=== PATIENT | female | born 1960 | race Caucasian/White ===

== ENCOUNTER 2025-02-07 04:36 | Inpatient (IN) | payer OTHER, SELFPAY ==
[2025-01-31 12:31] VITALS: BMI 33.6
[2025-01-31 12:49] LABS: Urine Albumin 1+ (Neg - Trace); Urine Bilirubin Negative (Negative); Urine Character Clear (Clear); Urine Color Yellow; Urine Glucose Negative (Negative); Urine Ketone Negative (Negative); Urine Leukocyte 3+ (Negative); Urine Nitrite Negative (Negative); Urine Occult Blood Negative (Negative); Urine Urobilinogen Negative (Neg - 1+)
[2025-01-31 12:51] LABS: % Basophils 0.6 % (0-2); % Eosinophils 4.4 % (0-6); % Immature Granulocytes 0.2 % (0-0.5); % Lymphocytes 14.1 % (20.5-51.1); % Monocytes 6.9 % (1.7-9.3); % Neutrophils 73.8 % (42.2-75.2); Absolute Basophils 0.1 10^3/uL (0-0.2); Absolute Eosinophils 0.4 10^3/uL (0-0.7); Absolute Lymphocytes 1.3 10^3/uL (1.2-3.4); Absolute Monocytes 0.6 10^3/uL (0.1-0.6); Absolute Neutrophils 6.6 10^3/uL (1.4-6.5); Hematocrit 36.9 % (37.0-47.0); Mean Corp Hgb Conc. 32.5 g/dL (33.0-37.0); Mean Corpuscular Hgb 29.5 pg (27.0-31.0); Mean Corpuscular Volume 90.7 fL (81.0-99.0); Mean Platelet Volume 9.4 fL (7.4-10.4); Nucleated Red Blood Cells % 0 %; Platelet Count 320 10^3/uL (130-400); Red Blood Cell Count 4.07 10^6/uL (4.20-5.40); Red Cell Dist. Width 13.3 % (11.5-14.5)
[2025-01-31 13:03] LABS: INR 0.94
[2025-01-31 13:04] LABS: APTT 31.9 Sec (23.4-35.0)
[2025-01-31 13:07] LABS: Glycohemoglobin (HgbA1c) 6.7 % (4.0-5.6)
[2025-01-31 13:25] LABS: ALT (SGPT) 17 U/L (0-35); AST (SGOT) 21 U/L (14-36); Albumin 4.5 g/dl (3.5-5.0); Alkaline Phosphatase 44 U/L (38-126); Blood Urea Nitrogen 27 mg/dl (7-17); Calcium 9.8 mg/dl (8.4-10.2); Carbon Dioxide 25 mmol/L (22-30); Chloride 103 mmol/L (98-107); Direct Bilirubin 0.2 mg/dl (0.0-0.4); Estimated Creatinine Clearance 41 ml/min; Glucose 79 mg/dl (70-99); Potassium 5.5 mmol/L (3.5-5.1); Sodium 137 mmol/L (135-145); Total Bilirubin 0.6 mg/dl (0.2-1.3); Total Protein 6.9 g/dl (6.3-8.2); eGFR 55.42
--- NOTE | 2025-01-31 14:09 | CM ---
Met with Mrs Vu and her friend Holly in [facility]. She states prior to admission she resides with her spouse and son in a one story home with four steps to enter. She states prior to admission she was independent with ambulation and adls. She
states she has a single point cane at home She states she has a prescription plan and uses [facility]. If the Transitional Care Nurse is out of the catchment area she is agreeable to having [facility] if needed. She states her son and
spouse will be home for the first week to assist in her care if needed. The discharge plan is to return home with her spouse and son with a home visit by the Transitional Care Nurse [facility] if [facility].
We reviewed pre-op and post-op routines. We reviewed the shower instructions. She has the soap, written instructions and the Cardiothoracic Surgery Educational Booklet. We also reviewed the restrictions including sternal precautions and driving
restrictions. We discussed a home visit by the Transitional Care Nurse. She is agreeable to home visit. The plan is for MVR and CABG on January.
[2025-01-31 14:40] LABS: Urine Squamous Cell >30 /LPF (Few)
[2025-01-31 14:41] LABS: Urine Amorphous Seen
[2025-01-31 14:42] LABS: Urine Red Blood Cell 0-2 /HPF (0-2)
[2025-01-31 14:43] LABS: Urine White Cell 50-60 /HPF (0-5)
[2025-01-31 14:44] LABS: Urine Bacteria Few (Negative)
[2025-02-07] VITALS (21 sets, daily range): BP systolic 81–123; BP diastolic 51–67; BMI 33.1
--- NOTE | 2025-02-07 05:30 | PTCARENOTE ---
Patient arrived to CVICU, clipped in a surgical fashion, wiped with CHG, confirmed NPO And two showers. During medication review, could not confirm last known day Plavix was taken; CVPA aware, TEG test collected and given to glass finisher prior to
patient being taken to CVOR.
[2025-02-07] MEDS: BACTROBAN 2% OINTMENT 1 APPLIC NASAL ×2 (07:05→21:29)
[2025-02-07] MEDS: MAGNESIUM OXIDE 500 MG PO (07:05)
[2025-02-07] MEDS: PROTONIX 40 MG PO (07:06)
--- NOTE | 2025-02-07 07:07 | W.PN.UPDATE ---
Update Note
Progress Note Update
preop BB contraindicated due to bradycardia
--- NOTE | 2025-02-07 07:32 | W.CVOR.SURPR ---
CVOR Surgeon Immed Pre Op
-
I have examined this patient prior to performance of the scheduled procedure.
The patient's condition is unchanged from the time of the dictated/written History and
Physical and the patient is able to undergo the scheduled procedure.
High Risk MVR + CABG x 2 + LIZBETH Clip
[2025-02-07 08:19] LABS: ACT+ - POC 101 Seconds (82-134)
[2025-02-07 08:26] LABS: Urine Albumin Negative (Neg - Trace); Urine Bilirubin Negative (Negative); Urine Character Clear (Clear); Urine Color Yellow; Urine Glucose Negative (Negative); Urine Ketone Negative (Negative); Urine Leukocyte Negative (Negative); Urine Nitrite Negative (Negative); Urine Occult Blood Negative (Negative); Urine Urobilinogen Negative (Neg - 1+); Urine pH 6.5 (5.0-9.0)
[2025-02-07 09:30] LABS: ACT+ - POC 584 Seconds (82-134)
[2025-02-07 09:45] LABS: B.E. - POC 0.5 mmol/L; Glucose - POC 97 mg/dl (70-99); HCO3 - POC 25 mmol/L (21-28); Hematocrit - POC 31 % PCV (37-47); Hemodilution- POC No; Hemoglobin Calculated - POC 10.6; Ionized Calcium - POC 1.16 mmol/L (1.15-1.33); Lactate - POC 2.33 mmol/L (0.36-0.75); O2 Saturation %Calculated-POC 99.4 % (94-98); PCO2 - POC 40 mmHg (35-48); PO2 - POC 161 mmHg (83-108); Potassium - POC 4.2 mmol/L (3.5-5.1); Sodium - POC 139 mmol/L (136-145); Specimen Type - POC Arterial; pH - POC 7.41 (7.35-7.45)
[2025-02-07 09:59] LABS: ACT+ - POC 665 Seconds (82-134)
[2025-02-07 10:15] LABS: B.E. - POC -0.8 mmol/L; Glucose - POC 95 mg/dl (70-99); HCO3 - POC 25 mmol/L (21-28); Hematocrit - POC 25 % PCV (37-47); Hemodilution- POC Yes; Hemoglobin Calculated - POC 8.6; Ionized Calcium - POC 0.95 mmol/L (1.15-1.33); Lactate - POC 3.45 mmol/L (0.36-0.75); O2 Saturation %Calculated-POC 99.9 % (94-98); PCO2 - POC 44 mmHg (35-48); PO2 - POC 376 mmHg (83-108); Potassium - POC 5.1 mmol/L (3.5-5.1); Sodium - POC 138 mmol/L (136-145); Specimen Type - POC Arterial; pH - POC 7.36 (7.35-7.45)
[2025-02-07 10:29] LABS: ACT+ - POC 590 Seconds (82-134)
[2025-02-07 10:46] LABS: B.E. - POC 0.7 mmol/L; Glucose - POC 120 mg/dl (70-99); HCO3 - POC 27 mmol/L (21-28); Hematocrit - POC 27 % PCV (37-47); Hemodilution- POC Yes; Ionized Calcium - POC 1.06 mmol/L (1.15-1.33); Lactate - POC 3.89 mmol/L (0.36-0.75); O2 Saturation %Calculated-POC 99.9 % (94-98); PCO2 - POC 51 mmHg (35-48); PO2 - POC 368 mmHg (83-108); Potassium - POC 5.1 mmol/L (3.5-5.1); Sodium - POC 140 mmol/L (136-145); Specimen Type - POC Arterial; pH - POC 7.33 (7.35-7.45)
[2025-02-07 10:56] LABS: ACT+ - POC 514 Seconds (82-134)
[2025-02-07 11:16] LABS: B.E. - POC 0.8 mmol/L; Glucose - POC 127 mg/dl (70-99); HCO3 - POC 27 mmol/L (21-28); Hematocrit - POC 26 % PCV (37-47); Hemodilution- POC Yes; Hemoglobin Calculated - POC 8.7; Ionized Calcium - POC 1.01 mmol/L (1.15-1.33); Lactate - POC 4.03 mmol/L (0.36-0.75); O2 Saturation %Calculated-POC 99.9 % (94-98); PCO2 - POC 48 mmHg (35-48); PO2 - POC 304 mmHg (83-108); Potassium - POC 5.3 mmol/L (3.5-5.1); Sodium - POC 142 mmol/L (136-145); Specimen Type - POC Arterial; pH - POC 7.35 (7.35-7.45)
[2025-02-07 11:27] LABS: ACT+ - POC 459 Seconds (82-134)
--- NOTE | 2025-02-07 11:28 | CM ---
Chart reviewed. Patient is in the OR today. Patient is independent of ADLS, lives with her and son in a 1 STH, 4 [address], ambulates with a SPC. Patient lives outside of [facility]. Referral sent to [facility]. Plan is for the
patient to return home with Emil GLASG[facility]. CM to follow
[2025-02-07 11:46] LABS: B.E. - POC 0.7 mmol/L; Glucose - POC 129 mg/dl (70-99); HCO3 - POC 27 mmol/L (21-28); Hematocrit - POC 26 % PCV (37-47); Hemodilution- POC Yes; Hemoglobin Calculated - POC 8.7; Ionized Calcium - POC 1.06 mmol/L (1.15-1.33); PCO2 - POC 51 mmHg (35-48); PO2 - POC 417 mmHg (83-108); Potassium - POC 5.1 mmol/L (3.5-5.1); Sodium - POC 141 mmol/L (136-145); Specimen Type - POC Arterial; pH - POC 7.33 (7.35-7.45)
[2025-02-07 11:57] LABS: ACT+ - POC 539 Seconds (82-134)
[2025-02-07 12:51] LABS: B.E. - POC 0.5 mmol/L; Glucose - POC 131 mg/dl (70-99); HCO3 - POC 26 mmol/L (21-28); Hematocrit - POC 25 % PCV (37-47); Hemodilution- POC Yes; Hemoglobin Calculated - POC 8.6; Ionized Calcium - POC 0.98 mmol/L (1.15-1.33); Lactate - POC 4.09 mmol/L (0.36-0.75); PCO2 - POC 48 mmHg (35-48); PO2 - POC 415 mmHg (83-108); Potassium - POC 5.6 mmol/L (3.5-5.1); Sodium - POC 141 mmol/L (136-145); Specimen Type - POC Arterial; pH - POC 7.35 (7.35-7.45)
[2025-02-07 12:58] LABS: ACT+ - POC 131 Seconds (82-134)
[2025-02-07 13:12] LABS: ACT+ - POC 120 Seconds (82-134)
--- NOTE | 2025-02-07 13:17 | W.PN.CT.SURG ---
CT Surgery Operative Note
-
CARDIAC SURGERY OPERATIVE REPORT
Preoperative Diagnosis: Severe mitral valve annular calcification with severe mitral valve stenosis, multivessel coronary artery disease, symptomatic
Postoperative Diagnosis: Same, new onset atrial fibrillation with hemodynamic instability
Procedure(s) Performed:
1. Standard sternotomy with aortic and bicaval cannulation
2. Coronary artery bypass grafting x 1 [BAKER in situ to LAD] with internal mammary artery harvesting
3. Extensive debridement of mitral annular calcification using the CUSA ultarsonic debridement device and requiring bovine pericardial patch reinforcement/repair of the fragile annulus
4. Chordal sparing mitral valve replacement [27 mm bioprosthesis]
5. Modified left atrial maze [encompass clamp, posterior wall isolation] and left atrial appendage exclusion [35 mm device]
6. Placement of temporary atrial and ventricular pacing wires
7. Transesophageal echocardiography
8. Exploration of lower extremity for vein, none was found
Date of Surgery: 02/07/2025
Comorbidities:
1. Severe mitral valve annular calcification
2. Severe mitral valve stenosis with mean gradient of 8 while under anesthesia
3. New onset atrial fibrillation with hemodynamic instability
4. Diabetes mellitus
5. Hypothyroidism
6. Hyperlipidemia
7. Diabetic peripheral neuropathy
8. Obese with a BMI of greater than 30
9. Severe pulmonary hypertension with systolic PA pressures in the high 60s to low 70s
10. Chronic diastolic congestive heart failure
Attending Surgeon: Long Hernández MD, MS
Assistants: Kassi Mayen PA-C (present and necessary to nutrition assistant, retraction, suction, exposure, suture management, and wound closure under my direction), Melissa Covarrubias PA-C (attempted endo vein harvest)
Anesthesiology: Maurisio Diaz MD and Sandy Walsh CRNA
Scrub and Circulating RNs: Catherine Morales, CHARITO, Jordon Cerrato, CHARITO and Adrian Gomes RN
Rand Cementer: Alisa Marmolejo CCP
Anesthesia: GETA
EBL: per perfusion records
Products: None
CPB Time: 177 minutes
Aortic Cross Clamp Time: 154 minutes
Indication(s) for Procedures: This is a 64-year-old female who has been experiencing worsening shortness of breath over the last few months, she underwent left heart cath with valve concomitant multivessel coronary artery disease involving the LAD
and RCA. She also had elevated pulmonary wedge pressures and LVEDP on examination. Her transthoracic echocardiogram demonstrated severe thickening of the mitral valve with heavy calcification. She had a mean gradient of 8 mmHg while awake. There
was reduced leaflet excursion of the valve and obvious evidence of mitral valve stenosis along with severe mitral valve annular calcification. Given her symptoms, she was offered high risk mitral valve replacement as well as CABG and left atrial
appendage exclusion.
Mitral Valve Description: Heavily calcified anterior and posterior leaflets, terrible MAC that started at the P2 P1 interface and extended all the way towards the posterior medial trigone with infiltration onto the posterior and anterior leaflets of
the mitral valve particularly towards the posterior medial side.
Findings: Her left ventricular ejection fraction preoperatively was normal at 60% with no significant regional wall motion abnormalities, her left atrium was quite large and thickened, her mitral valve was heavily calcified with reduced leaflet
excursion and a mean gradient 8 mmHg while under anesthesia. Of note after opening the chest and performed the pericardiotomy, she had new onset atrial fibrillation and did have hypotension requiring vasoactive support. After surgery her EF
remained the same at 60% with no new regional wall motion abnormalities. Her mitral valve was heavily calcified with extensive calcification of the posterior annulus. Her cords to the posterior medial papillary muscle head was resected as was
heavily calcified. Half of the anterior leaflet towards the A2 A3 side was also resected as it was infiltrated with calcium. In order to place good annular sutures, a ultrasonic device for debridement was used in order to break up the calcium in
the posterior annulus until there was muscle exposed. Bovine pericardial patch was used to repair the segment overall pericardium essentially reinforcing the entire P3 onto A1 side. Sutures were placed from ventricle through the patch through
annulus through patch and finally through the sewing cuff of the 27 mm bioprosthesis. After coming off cardiopulmonary bypass there was no paravalvular leak and had normal excursion of the new bioprosthetic leaflets. The mean gradient across the
valve was 4 while she was hyperdynamic with a index of greater than 3. Because she had new onset atrial fibrillation and modified posterior wall isolation was performed with the using the RF clamp in the left atrial appendage was also excluded.
She did not require any blood products, she was on 2.5 Dobutrex, and regained her sinus rhythm with a first-degree AV block.
Ablation Lines: Posterior wall isolation with left atrial appendage exclusion
Specimen(s): Mitral valve leaflets.
Prosthesis:
1. 35mm left atrial appendage clip, serial #[id number]
2. Bovine pericardial patch, serial number [id number]
3. 27 mm Mcmahan mitris Resilia mitral valve, serial #[id number].
Description of Procedure: The patient was taken to the operating room. Their identity and procedure to be performed were verified and they were positioned supine on the operating table. Induction via general anesthesia with endotracheal intubation
was performed and central venous access and arterial monitoring were inserted. A preoperative transesophageal echocardiogram was performed to assess cardiac function and valvular function. The patient was then prepped and draped from chin to feet in
a sterile fashion. A preoperative time-out was performed with all members of the team present. A midline chest incision was performed along with median sternotomy. A median sternotomy retractor was then exchanged for Rultract retractor.
Simultaneous access in order to attempt identifying a lower extremity vein was also performed. 5000 heparin was also given at this time. The mammary was taken down in the usual fashion as a skeletonized graft. There is excellent flow of the
distal and the mammary after transection it was then clipped with a medium clipped and placed into a papaverine soaked Ray-Manolo sponge and placed back into the left hemithorax. There will check was then exchanged for median sternotomy retractor and
the pericardium was opened and a pericardial well was created. The innominate vein was isolated. Full heparinization was given (a total of 40,000 units). Of note at this time the patient went into rapid atrial fibrillation with hypotension
requiring vasoactive medication. The aortic cannulation site was chosen where it was soft, pliable, and free of calcium. Cannulation was performed with an arterial cannula in the ascending aorta, angled metal tip cannular in the superior vena cava
and straight bendable cannula in the inferior vena cava. The arterial cannula line had an appropriate bounce and correlating pressures. Next, a root vent/antegrade cannula was inserted into the ascending aorta. The ACT was confirmed to be over 400
and retrograde autologous priming was performed before commencing cardiopulmonary bypass. The SVC was then away from the right pulmonary artery and the oblique sinus was developed. The encompass RF ablation clamp was passed through the
transverse and oblique sinuses underneath the SVC and IVC respectively and 3 successful pairs of ablation were performed. The pulmonary artery was away from the aorta to facilitate a clamp site. Sondergaard�s groove was developed. The
aortic cross-clamp was placed after decreasing the flow on the bypass and mean arterial pressure. A total of 1.2L initial dose of antegrade Del-Nido cardioplegia solution was given and planned for re-dosing every 75 minutes as necessary. There was
rapid electro-mechanical arrest of the heart at 300 cc of cardioplegia. The left ventricle was observed for distention on echocardiogram and manual palpation. Cold slush was placed into a lap on the RV and we systemically cooled to 34 degrees
centigrade. Once the heart was fully arrested he was gently rotated medially and the left atrial appendage was excluded with a clip.
I then positioned the heart in order to expose the LAD which was dissected using a [place] blade and a small coronary arteriotomy was created. The mammary artery was brought in from the left hemithorax and an end-to-side anastomosis was created.
Initially not satisfied with how the anastomosis appeared and so this was taken down and we done with 7-0 Prolene in a running fashion. There was excellent visual flow in the LAD territory thereafter with pinking up of the myocardium. The bulldog
was then replaced on the mammary artery. Additional cardioplegia was then given down the root.
Carbon dioxide was used to flood the field. The mitral valve was access via the left atrium followed by valve analysis. The mitral valve was replaced as described above. The left ventricular vent was repositioned across the mitral valve into the
left ventricular and the left atrium was closed with a 3-0 prolene. As I required extensive debridement there was calcium debris which was irrigated out of the left ventricle and suctioned out as best I could. I then reposition in order to perform
a small aortotomy in order to ensure that there was no debris within the aortic root or down towards the LVOT. This was closed in a standard fashion using 4-0 Prolene in a double suture line.
De-airing maneuvers were performed and temporary bipolar ventricular pacing wires were placed on the base of the right ventricle along with temporary atrial pacing wires at the SVC right atrial junction. The patient was placed in a Trendelenburg
position and flows on bypass were lowered. The aortic cross clamp was removed and flows were slowly brought back up. The left atrial suture line was hemostatic. Transesophageal echocardiography revealed no evidence of paravalvular leak and
ventricular function was normal. Once de-airing was satisfactory the left ventricular and root vents were removed. After verifying acceptable parameters, we initiated weaning from cardiopulmonary bypass. Once we were off cardiopulmonary bypass, the
venous cannulas was clamped and removed sequentially. A test dose of protamine was administered and the patient was monitored for any adverse reaction before resuming protamine. Once half of the protamine dose was delivered, pump suckers were turned
off and the systolic blood pressure was lowered for aortic decannulation. The aortic cannula was removed and purse strings were tied down. All cannulation sites were oversewn with a 4-0 prolene. The left atrial suture line was inspected and
hemostasis was confirmed. Mediastinal hemostasis was obtained. Two #24 Bennie drains were placed within the pericardium with a single #19 Bennie drain into the left hemithorax. The sternum was approximated with 4 #7 single and 2 #8 double stainless
steel wires along with a [id number]-ch-trpne suture in between as her sternum was fractured and the double wire did pull through here. Fascia was approximated with #1 vicryl suture. The subcutaneous, dermis and epidermis were closed in layers in a
running fashion. The skin wound was cleansed and dressed.
All instrument, sponge, and needle counts were confirmed to be correct x 2 at the end of the operation. The patient was transferred to the cardiac intensive care unit in critical but stable condition.
I, Dr. Long Hernández, was present, scrubbed for, and performed all critical elements of this procedure.
Long Hernández MD, MS
Cardiothoracic Surgeon
[facility]
This dictation was created using the [employer] dictation system. Please excuse any grammatical, typographical, or 'sound alike' errors
[2025-02-07] MEDS: NOVOLOG FLEXPEN SC ×2 (13:29→14:36)
[2025-02-07] MEDS: TYLENOL PO (13:29)
--- NOTE | 2025-02-07 13:40 | CON.INTV ---
Consultation
Consultation Request
Date/Time Consultation Requested: 02/07/2025 - 1312
Date/Time Consultation Performed: 02/07/2025 - 1
Requesting Provider: Alma Kearns NP
Performing Provider: Dr. Paz
Reason for Consultation: s/p MVR and CABG x1
Medical History
-
Chief Complaint: Elective mitral valve replacement + CABG
History of Present Illness:
64-year-old female non-smoker with a past medical history of DM type II, hypothyroidism, hyperlipidemia, depression, obesity, hypertension, history of asthma, mild regurgitation, mitral stenosis, CAD, pulmonary hypertension, and chronic HFpEF who
presents for elective CABG + mitral valve replacement. Patient follows with cardiothoracic surgery with last visit on 01/24/[address] Hernández. Patient has known mitral valve stenosis via echo at [facility] patient been describing more fatigue + SOB with
activities. She has had a left heart cath in December 2024 which showed multiple tandem lesions in the LAD as well as moderate disease of her mid-RCA disease as well. She had an increased wedge pressure + LVEDP. She now presents for cardiothoracic
intervention. Today she underwent CABG x 1 with extensive debridement of mitral annular calcification, chordal sparing mitral valve replacement, and modified left atrial MAZE. Patient tolerated the procedure well with no complications and was
transferred to the CVICU postoperatively. [employer] services consulted for additional management/recommendations.
When I saw the patient she was resting in bed in no acute distress, intubated on SIMV at 14/450/40%/5 with PIP 26 cmH2O, VTe 438 cc and breathing at 18 breaths/minute. Heart rate 72, BP via A-line 96/55, PAP 43/20, saturating 95% with CO/CI
3.06/1.91, respectively. Currently on dobutamine at 2.5 mcg/kg/min, Levophed at 2 mcg/min, also on insulin drip at 3 units/hr and Precedex at 0.5 mcg/kg/hr.
PMHx: DM type II, hypothyroidism, hyperlipidemia, depression, obesity, hypertension, history of asthma, mild regurgitation, mitral stenosis, CAD, pulmonary hypertension, chronic HFpEF
PSHx: Cholecystectomy, partial thyroidectomy, right toe amputation
Past Medical History
Past Medical History: Other (Above as per HPI)
Past Surgical History: Other (Above as per HPI)
Social History
Tobacco: Non-smoker
Alcohol: Occasional
Drug: None
Personal:
Living: With Family
Employment: Retired ([employer])
Family History
Family History: CAD (Mother), Diabetes (Mother), Hypertension (Lumbar) and Other (Father: Cirrhosis)
Allergies / Home Medications
Allergies
Allergy/AdvReac Type Severity Reaction Status Date / Time
No Known Allergies Allergy Verified 01/29/25 13:55
Home Medications
�Medication �Instructions �Recorded �Confirmed �Last Taken �Type
albuterol sulfate 90 mcg/actuation 1 - 2 puff inhalation Q6H PRN 01/29/25 02/07/25 02/06/25 12:00 History
aerosol inhaler asthma
aspirin 81 mg tablet,delayed 81 mg PO DAILY Blood Clot 01/29/25 02/07/25 02/06/25 08:00 History
release Prevention/Tx
atorvastatin 40 mg tablet 40 mg PO HS High Cholesterol 01/29/25 02/07/25 02/06/25 08:00 History
bupropion HCl 150 mg 24 hr tablet, 150 mg PO HS Mental Health/Anxiety 01/29/25 02/07/25 02/06/25 08:00 History
extended release
cholecalciferol (vitamin D3) 125 125 mcg PO DAILY Supplement 01/29/25 02/07/25 01/31/25 08:00 History
mcg (5,000 unit) tablet (Vitamin
D3)
citalopram 40 mg tablet (Celexa) 40 mg PO DAILY Mental 01/29/25 02/07/25 02/06/25 08:00 History
Health/Anxiety
clopidogrel 75 mg tablet 75 mg PO DAILY Blood Clot 01/29/25 02/07/25 Unknown History
Prevention/Tx
dulaglutide 0.75 mg/0.5 mL 0.75 mg SC QWEEK Diabetes 01/29/25 02/07/25 02/04/25 08:00 History
subcutaneous pen injector
(Trulicity)
ferrous sulfate 325 mg (65 mg 325 mg PO Q48H Supplement 01/29/25 02/07/25 01/31/25 08:00 History
iron) tablet (Iron (ferrous
sulfate))
fluticasone fur. 100 mcg-umeclid 1 inh inhalation DAILY 01/29/25 02/07/25 02/06/25 08:00 History
62.5 mcg-vilant 25 mcg Lung/Breathing Issues
inhalat.powder (Trelegy Ellipta)
furosemide 40 mg tablet 40 mg PO DAILY Fluid 01/29/25 02/07/25 02/05/25 08:00 History
Retention/Swelling
gabapentin 100 mg capsule 100 mg PO DAILY Pain 01/29/25 02/07/25 02/06/25 08:00 History
insulin glargine 100 unit/mL (3 20 unit SC HS Diabetes 01/29/25 02/07/25 02/06/25 21:00 History
mL) subcutaneous pen (Basaglar
KwikPen U-100 Insulin)
levothyroxine 88 mcg tablet 88 mcg PO DAILY Thyroid 01/29/25 02/07/25 02/07/25 04:00 History
lisinopril 5 mg tablet 5 mg PO HS Blood Pressure 01/29/25 02/07/25 02/06/25 20:00 History
mecobalamin (vitamin B12) 1,000 3,000 mcg PO DAILY Supplement 01/29/25 02/07/25 01/31/25 08:00 History
mcg chewable tablet
metformin 500 mg tablet,extended 1,000 mg PO BID Diabetes 01/29/25 02/07/25 02/06/25 20:00 History
release 24hr (osmotic)
metoprolol succinate 25 mg 25 mg PO HS Blood Pressure 01/29/25 02/07/25 02/05/25 20:00 History
tablet,extended release 24 hr
multivit,Ca,xqu-daml-XI-guarana-caff 1 tab PO DAILY Supplement 01/29/25 02/07/25 01/31/25 08:00 History
9 mg iron-400 mcg-200 mg tablet
([employer])
Review of Systems
-
Unable to Obtain full review of systems at this time due to: Patient Intubation
Vitals / Labs / Diagnostic Testing
Vital Signs
Temp Pulse Resp BP Pulse Ox
97.5 F 54 16 107/51 98
02/07/25 04:47 02/07/25 04:47 02/07/25 04:47 02/07/25 04:47 02/07/25 04:47
Diagnostic Testing:
Physical Exam
-
HEENT: Normocephalic, Anicteric and Other (ETT in place)
Cardiovascular: S1/S2 and Peripheral Edema (negative)
Respiratory: Wheeze (negative), Rales (negative), Rhonchi (negative) and Other (Mechanical breath sounds heard bilaterally)
GI: Soft, Non Distended, Non Tender and Normal Bowel Sounds
Neurology: Tremors (negative) and Other (Sedated although easily arousable to voice + tactile stimulation)
Skin: Warm and Dry
General: Respiratory Distress (negative), Comfortable, Chills (negative) and Sweats (negative)
Assessment
-
Assessment: 64-year-old female non-smoker with a past medical history of DM type II, hypothyroidism, hyperlipidemia, depression, obesity, hypertension, history of asthma, mild regurgitation, mitral stenosis, CAD, pulmonary hypertension, and chronic
HFpEF who presents for elective CABG + mitral valve replacement. Patient follows with cardiothoracic surgery with last visit on 01/24/[address] Hernández. Patient has known mitral valve stenosis via echo at [facility] patient been describing more fatigue +
SOB with activities. She has had a left heart cath in December 2024 which showed multiple tandem lesions in the LAD as well as moderate disease of her mid-RCA disease as well. She had an increased wedge pressure + LVEDP. She now presents for
cardiothoracic intervention. On 02/07/2025, she underwent CABG x 1 with extensive debridement of mitral annular calcification, chordal sparing mitral valve replacement, and modified left atrial MAZE. Patient tolerated the procedure well with no
complications and was transferred to the CVICU postoperatively. [employer] services consulted for additional management/recommendations.
Chronic conditions STAFF HOME THERAPY RN: DM type II, hypothyroidism, hyperlipidemia, depression, obesity, hypertension, history of asthma, mild regurgitation, mitral stenosis, CAD, pulmonary hypertension, chronic HFpEF
Impression:
#Severe mitral valve annular calcification with severe mitral valve stenosis s/p extensive debridement of MAC requiring bovine pericardial patch reinforcement/repair of the fragile annulus + chordal sparing mitral valve replacement with 27 mm
bioprosthesis (POD #0)
#Intraoperative atrial fibrillation with hemodynamic instability s/p modified left atrial MAZE + left atrial appendage exclusion with 35 mm device (POD #0)
#Multivessel CAD s/p CABG x 1 (BAKER in situ to LAD - POD #0)
#Acute anemia due to above
#DM type II complicated by peripheral neuropathy
#Severe pulmonary hypertension
#Chronic diastolic heart failure
#Hypothyroidism
#Hyperlipidemia
Plan:
Ventilator settings reviewed
FiO2 will be weaned to maintain SpO2 >90-94%
Minute ventilation will be adjusted
Arterial blood gases will be monitored
Spontaneous breathing trial will be attempted with hopeful extubation after anesthesia/sedation wear off
prn nebulized bronchodilators - not currently bronchospastic
Pulmonary artery catheter parameters will be followed
Pressors/antihypertensive/inotropes/diuretics will be provided as needed
Maintain MAP>65
Replete electrolytes with K>4, Mg>2
Monitor chest tube output
Monitor hemoglobin
Monitor platelet count and coags
Transfuse blood products as needed to maintain Hb>7g/dL, plt>50k (given post-operative status)
CT surgery managing chest tubes
Monitor blood sugar to maintain euglycemia with goal BG 110-140
Insulin drip per protocol
Continue DAPT with ASA + Plavix
Continue PO amiodarone
Aspiration precautions
VAP prevention protocol
DVT prophylaxis
Early nutrition
Early mobilization
Critical care statement: A total of 46 minutes of critical care time was provided for this patient today. This includes management of ventilator, spontaneous breathing trial, arterial blood gases, pressors, of unstable vital signs, evaluation of the
patient at bedside, reviewing the patient's pertinent medical records including radiographs, microbiology, laboratory evaluations, and discussion with primary team and critical care nursing.
[2025-02-07 13:45] LABS: B.E. - POC -2.2 mmol/L; Glucose - POC 137 mg/dl (70-99); HCO3 - POC 23 mmol/L (21-28); Hematocrit - POC 26 % PCV (37-47); Hemodilution- POC Yes; Hemoglobin Calculated - POC 8.7; Ionized Calcium - POC 1.25 mmol/L (1.15-1.33); Lactate - POC 4.29 mmol/L (0.36-0.75); O2 Saturation %Calculated-POC 99.9 % (94-98); PCO2 - POC 38 mmHg (35-48); PO2 - POC 279 mmHg (83-108); Potassium - POC 4.6 mmol/L (3.5-5.1); Sodium - POC 141 mmol/L (136-145); Specimen Type - POC Arterial; pH - POC 7.38 (7.35-7.45)
[2025-02-07 14:07] LABS: Glucose - Point of Care 144 mg/dl (70-99)
--- NOTE | 2025-02-07 14:19 | W.PN.UPDATE ---
Update Note
Progress Note Update
IV fluids: 3900 mL
U.O.:� 2100 mL
UF:� 1600 mL
Blood:� 0
Wires:� A & V
Gtt's:� Dobutrex (2.5), Levophed (2.5), Insulin (1)�
Sedatives:� Precedex (0.5)
�
NEURO: sedated on Precedex, pupils +2mm B/L
RESP: #7 OT 20 cm> 450/40%/14/5. Lungs clear B/L. 2 mediastinal (0cc on arrival) and L pleural (0cc on arrival) chest tubes to -20cm suction. Sanguineous drainage
CV: RRR +S1, S2, no S3, no�rub, no murmur. Dermabond to median sternotomy. RIJ w/Elco locked @ 39cm. PA 48/23; CVP 6; C.O 3.06/CI 1.91
ABD: round, soft, no BS
EXT: no edema, +2/4 DP pulses B/L, no femoral bruit, L brachial A-line intact, R & L inferior knee incision CDI with dermabond
: Salazar with clear, pink-tinged urine
�
A/P: POD #0 s/p MVR, CAB x 1 (BAKER-LAD), LIZBETH clip, and MAZE
ETHAN: EF�60-65%
#CAD #pHTN #HFpEF #HTN
- wean and extubate
- reintroduce home medication as able post-operatively
- will need instruction regarding antibiotic prophylaxis for dental and invasive procedures
�
# acute surgical blood loss anemia-expected
- trend CBC
#Asthma
- PRN albuterol
- Trelegy Ellipta as outpatient
- substitute regiment ordered
# T2DM (A1C 6.7)
- insulin infusion x 48h
- Diabetic MANAGER STRATEGY & ACCOUNT consulted
- Previously on Metformin, Basaglar, & Trulicity
�
# Hyperlipidemia
- resume�statin
#Anxiety/Depression
- Resume home regiment of bupropion & citalopram
#Hypothyroidism
-Resume levothyroxine
[2025-02-07 14:21] LABS: Hematocrit 28.5 % (37.0-47.0); Hemoglobin 9.5 g/dL (12.0-16.0); Platelet Count 216 10^3/uL (130-400)
[2025-02-07] MEDS: ANCEF 10 IV ×2 (14:26)
[2025-02-07] MEDS: NSS 500 IV (14:26)
[2025-02-07 14:27] LABS: B.E. -1.3 mmol/L; HCO3 23.7 mmol/L (21-28); Ionized Calcium 1.18 mMOL/L (1.15-1.33); O2 Saturation % 97.1 % (94-98); PCO2 40 mmHg (32-35); PO2 76 mmHg (83-108); Potassium 4.5 mMOL/L (3.5-5.1); Sodium 137 mMOL/L (136-145); pH 7.38 (7.35-7.45)
[2025-02-07 14:29] LABS: INR 1.55; PT 19.1 Sec (11.4-14.6)
[2025-02-07 14:30] LABS: APTT 36.6 Sec (23.4-35.0)
--- NOTE | 2025-02-07 14:30 | PTCARENOTE ---
pt received from [facility] @~1400, sedated on Precedex gtt, RASS -5. core temp 96.9, bear hugger applied as ordered. 100% Apaced on the monitor, HR 72. A&V wires in place, AAI 72/16. SBP goal 90-[address] Hernández. Levophed gtt titrated as ordered. PAP
40-50s/20s, CVP~6-8. CI 1.9, CARGO AGENT Alma aware. Dobutamine gtt running as ordered. pt mechanically ventilated, ETT #7.0, 20cm@lip. SIMV 14, TV 450, PEEP 5, FIO2 40%. POX 94-98%. pt abdomen s/n, hypoactive BS. acevedo in place, punch colored urine, CARGO AGENT
aware. sternal incision approximated, surgical adhesive present, ISAIAH. R Leg and L leg incisions ISAIAH, approximated, surgical adhesive present. chest tube dressing intact. RIJ cordis/swan maintained. L brachial Georgette flushed, zeroed, and calibrated.
PIV. insulin gtt running as ordered. labs drawn, CXR completed. see worklist for VS, I&O, and assessment.
[2025-02-07 14:31] LABS: Mixed Venous O2 Saturation 60.3 %
[2025-02-07] MEDS: LR 250 ML IV ×5 (14:33→22:59)
[2025-02-07] MEDS: NEURONTIN PO (14:35)
[2025-02-07] MEDS: PACERONE PO ×3 (14:35→23:02)
[2025-02-07 14:59] LABS: Glucose - Point of Care 128 mg/dl (70-99)
--- NOTE | 2025-02-07 15:28 | W.PN.CD ---
Today's Communication / Plan
-
Routine post operative management.
Titrate pressors/inotropes for MAP > 65, CI > 1.8 L/min/m2.
Favor dobutamine as an inotropic agent given borderline blood pressures.
Wean vent to extubate.
Pain/chest tube management per CTS.
Monitor anemia.
Impression / Plan
-
Impression/Plan: 64 y/o female with HLD, asthma, NIDDM with peripheral neuropathy, CAD and severe MS with severe pulmonary hypertension admitted for elective MVR and 1V CABG.
#Severe, calcific mitral stenosis
-Chronic, progressive.
-TTE gradient = 8 mmHg, ETHAN gradient 5 mmHg (under sedation).
-Now s/p chordal sparing SMVR (#27 Mcmahan Mitris Reslia, SN: [id number]) with mitral annulus pericardial patch (SN: [id number]) and LAAE (#35 [place], SN: [id number]) with Dr. Hernández, 02/07/2025.
-Anticipate routine post operative management.
-Wean inotropes/pressors for a MAP > 65 and a CI > 1.8 L/min/m2. Favor dobutamine due to borderline blood pressures.
-Wean vent to extubate.
-Pain/chest tube management per CT surgery.
#CAD
-Chronic, progressive.
-Cath films reviewed.
-S/P BAKER to LAD.
-Moderate RCA disease, easily treated with PCI if deemed clinically necessary.
-Post operative management as above.
-DAPT per protocol, aspirin ad infinitum.
-High dose, high potency statin.
#HLD
-Chronic, stable.
-Continue atorvastatin 40 mg daily when taking PO.
-Goal LDL < 55.
#NIDDM
-Chronic, controlled.
-HbA1c = 6.7%.
-Insulin gtt per protocol.
Critical Care Time = 38 minutes.
Subjective/Interval History:
POD #0 for MVR/CABG x1.
DATA:
MVR/CABG, 02/07/2025:
Procedure(s) Performed:
1. Standard sternotomy with aortic and bicaval cannulation.
2. Coronary artery bypass grafting x 1 [BAKER in situ to LAD] with internal mammary artery harvesting.
3. Extensive debridement of mitral annular calcification using the CUSA ultrasonic debridement device and requiring bovine pericardial patch reinforcement/repair of the fragile annulus.
4. Chordal sparing mitral valve replacement [27 mm bioprosthesis].
5. Modified left atrial maze [encompass clamp, posterior wall isolation] and left atrial appendage exclusion [35 mm device].
6. Placement of temporary atrial and ventricular pacing wires.
7. Transesophageal echocardiography.
8. Exploration of lower extremity for vein, none was found.
Intraoperative ETHAN, 02/07/2025:
CONCLUSIONS
Moderate mitral stenosis, mild mitral regurgitation, severe MAC, severe
leaflets calcifications. Annulus measures 27 x 28 mm.
Normal left ventricular size and systolic function.
Mild left atrial enlargement.
Normal right ventricular size and function.
The ascending aorta has atheroma less than 5 mm and mild calcifications.
POST OPERATIVE FINDINGS
Status post mitral valve replacement with 27 mm Mi mitral valve, status post
debridement mitral annulus, the valve is well-seated, no perivalvular leak,
leaflets are functioning well. No intra valvular regurgitation, mean gradient
is 4 mmHg.
Status post CABG x 1, the left ventricle is vigorously inder, EF 60 to
65%, no regional wall motion abnormalities seen.
Status post left atrial appendage exclusion, the clip is well-seated, no flow
seen through the left atrial appendage remnant.
Normal right ventricular size and function.
Mild tricuspid regurgitation. No aortic valve abnormalities.
Physical Exam
Vital Signs/Labs
Vital Signs
Temp Pulse Resp BP Pulse Ox
36.2 C 72 14 102/66 98
02/07/25 15:00 02/07/25 14:55 02/07/25 15:00 02/07/25 14:46 02/07/25 15:00
02/06/25 02/07/25 02/08/25
11:59 11:59 11:59
Actual Weight 69.4 kg
PT 19.1 Sec (11.4-14.6) H 02/07/25 14:02
INR 1.55 02/07/25 14:02
APTT 36.6 Sec (23.4-35.0) H 02/07/25 14:02
Physical Exam
Constitutional: No acute distress and Comfortable
EENT: Anicteric, Moist mucous membranes and Other (ET tube in place.)
Cardiovascular: Rhythm & rate is regular
Respiratory: Respiratory effort normal, Lungs clear to auscul., Wheeze Absent, Crackles Absent and Rhonchi Absent
GI: Soft, Distention absent, Flat, Non tender and Normal bowel sounds
Neuro/Psych: Other (Intubated/sedated.)
Data Reviewed
-
Date of Service: February 07, 2025
Medical Decision Making: Reviewed Test Results, Test Interpretation and Review of Case with other Provider
EKG: Tracing Personally Visualized and interpreted and Report Reviewed by me
Echo: Tracing Personally Visualized and interpreted and Report Reviewed by me
X-Ray/CT/US/MRI/NUC/PET: Image Personally Visualized and interpreted and Report Reviewed by me
Medical Tests (PFT, Pathology etc): Image Personally Visualized and interpreted and Report Reviewed by me
Labs: Labs Reviewed by me
Old Records: Reviewed
[2025-02-07 15:32] LABS: Blood Urea Nitrogen 23 mg/dl (7-17); Estimated Creatinine Clearance 44 ml/min; Glucose 128 mg/dl (70-99); Magnesium 2.3 mg/dl (1.6-2.3)
[2025-02-07] MEDS: OFIRMEV 100 IV (15:36)
--- NOTE | 2025-02-07 15:38 | RESPNOTE ---
attempted cpap trial. patient RR @ 20- acceptable, but tidal volumes < 100mL. cpap trial stopped after 3 minutes and placed back on SIMV settings. will attempt again shortly.
--- NOTE | 2025-02-07 15:38 | PTCARENOTE ---
SHALE PLANER OPERATOR aware of lab results and hemodynamics. 250ml LR given x2 as ordered. pt nods appropriately, LEZAMA. follows commands. attempted CPAP trial, failed d/t low volumes, will reattempt when appropriate. Ofirmev given as ordered for pain.
[2025-02-07 16:06] LABS: Glucose - Point of Care 119 mg/dl (70-99)
[2025-02-07] MEDS: VENTOLIN NEBULES 2.5 MG INH (16:43)
--- NOTE | 2025-02-07 16:55 | PTCARENOTE ---
pt washed w/ CHG wipes, gown and linens changed. turned and repositioned, no dumping from CTs. face washed. oral hygiene performed. pt more alert, placed on CPAP trial @1642 by RT Eden.
[2025-02-07 17:02] LABS: Glucose - Point of Care 116 mg/dl (70-99)
[2025-02-07 17:23] LABS: B.E. - POC -1.9 mmol/L; Blood Urea Nitrogen - POC 21 mg/dl (3-120); Chloride - POC 109 mmol/L (96-111); Creatinine - POC 1.13 mg/dl (0.3-1.0); Glucose - POC 104 mg/dl (70-99); HCO3 - POC 23 mmol/L (21-28); Hematocrit - POC 24 % PCV (37-47); Hemodilution- POC No; Hemoglobin Calculated - POC 8.1; Ionized Calcium - POC 1.15 mmol/L (1.15-1.33); Lactate - POC 2.94 mmol/L (0.36-0.75); O2 Saturation %Calculated-POC 99.5 % (94-98); PCO2 - POC 39 mmHg (35-48); PO2 - POC 171 mmHg (83-108); Potassium - POC 4.2 mmol/L (3.5-5.1); Sodium - POC 141 mmol/L (136-145); Specimen Type - POC Arterial; pH - POC 7.38 (7.35-7.45)
--- NOTE | 2025-02-07 17:32 | RESPNOTE ---
pt extubated at 1725 to 6lpm nasal cannula
[2025-02-07] MEDS: CALCIUM GLUCONATE 100 IV (17:34)
[2025-02-07 17:35] LABS: Hematocrit 25.5 % (37.0-47.0); Hemoglobin 8.6 g/dL (12.0-16.0); Platelet Count 232 10^3/uL (130-400)
--- NOTE | 2025-02-07 17:36 | PTCARENOTE ---
EPOC done at bedside by OBSTETRIC ASSISTANT. pt extubated @1725 to 6LNC, 100% POX. IS encouraged. oriented x4. H&H sent. calcium repleted. called and updated.
[2025-02-07 18:09] LABS: Glucose - Point of Care 126 mg/dl (70-99)
[2025-02-07] MEDS: DILAUDID 0.25 MG IV ×2 (19:22→22:38)
[2025-02-07] MEDS: LOW STRENGTH ASPIRIN 81 MG PO (19:23)
[2025-02-07] MEDS: ANCEF 5 IV (19:26)
[2025-02-07] MEDS: ZOFRAN 4 MG IV (19:35)
--- NOTE | 2025-02-07 20:00 | PTCARENOTE ---
Addendum entered by Ally Auguste RN 02/07/25 23:28:
1999: Eliseo Cheek at bedside adjusted pacer to current setting 74/16. notified him of labile BP's
Original Note:
1999- Patient recieved from RN @1900. Patient lying in bed w/ call vogel in reach. Patient states pain is 7/10. Diludid given per order. AOx4. A- Paced 74/16 -NSR HR 74. SBP goal 90-110 on levo, and dubutimine titrations. Heart sounds
audible. Radial present and pedal pulses weak on palipation bilaterally. No edema noted Lungs clear but diminished bilaterally. IS 1500. POX 99% [address] x3, L pleural and 2x mediastinal set to -20 wall suction draining serosanguious fluid.
No crepitus, tidaling, or airleaks noted. Bowel sounds hypoactive. Sternal dressing dry and intact. Bilateral knee incisions approximated and PAVING RAMMER. RIJ cordis w/ hannah All lines levled and zeroed. patent and intact. Right PIV intact 20 A/C has
Insulin infusing per protocal. Salazar putting putting out yellow urine, See Worklist for full assessment and details.
[2025-02-07 20:16] LABS: Glucose - Point of Care 106 mg/dl (70-99)
[2025-02-07] MEDS: SENOKOT-S 1 TABLET PO (21:30)
[2025-02-07 21:58] LABS: Glucose - Point of Care 113 mg/dl (70-99)
[2025-02-07] MEDS: NEURONTIN 100 MG PO (22:30)
[2025-02-07] MEDS: LIPITOR 80 MG PO (22:34)
[2025-02-07] MEDS: FLEXERIL 5 MG PO (22:36)
[2025-02-07] MEDS: TYLENOL 1000 MG PO (22:36)
--- NOTE | 2025-02-07 23:29 | PTCARENOTE ---
2330- Patient BP remains labile, drops when patient is awaked and raises again within 5 minutes without intervention, Eliseo Cheek ordered LR 250 bolus, Levo remains @ 3. Patient repositioned tolerated well. Vital sign remain stable. pain
controlled wiwth medication and positioning.
[2025-02-08] VITALS (57 sets, daily range): BP systolic 89–140; BP diastolic 38–126; BMI 34.2
[2025-02-08 00:15] LABS: Glucose - Point of Care 103 mg/dl (70-99)
[2025-02-08 02:07] LABS: Glucose - Point of Care 119 mg/dl (70-99)
[2025-02-08 02:38] LABS: Ionized Calcium 1.17 mMOL/L (1.15-1.33)
--- NOTE | 2025-02-08 02:40 | W.PN.CT ---
Today's Communication / Plan
-
- CI >2.0, BP 100's/50's, CVP 8-10 on Dobutamine and Levophed, wean as tolerated. Discontinue swan once off Dobutamine
- A-paced at 74, had brief period of sinus rhythm when pacer paused but reverted to junctional rhythm
-Hgb 7.5 this morning, consider transfusion as still requiring Levophed for BP support.
-CT output: Meds 75/245, Pl 160/245 for 12/24hrs.
-UO 485/1055 for 12/24hrs, BUN/Cr
-continue insulin drip
Assessment / Plan
-
s/p MVR(27mm Mitris), CABGx1(BAKER to LAD), GUSTAVO CASIANO POD#1
-CAD
-HTN
-HLD
-HFpEF
-asthma
-T2DM
-hypothyroid
-anxiety/depression
-acute blood loss anemia
Subjective
Procedure
02/07/25 s/p MVR(27mm Mitris), CABGx1(BAKER to LAD), GUSTAVO CASIANO by Dr. Hernández
-
Date of Service: February 08, 2025
Objective Data
-
Lab Results
02/08/25 02:26
02/08/25 02:26
PT 19.1 Sec (11.4-14.6) H 02/07/25 14:02
INR 1.55 02/07/25 14:02
APTT 36.6 Sec (23.4-35.0) H 02/07/25 14:02
Vital Signs
Vital Signs
Temp Pulse Resp BP Pulse Ox
99 F 74 17 98/88 97
02/08/25 04:00 02/08/25 04:45 02/08/25 04:45 02/08/25 04:30 02/08/25 04:45
SaO2: 100
Physical Exam
-
General: AOx3
Cardiovascular: Regular rate & rhythm (paced, sinus/junctional underneath)
Respiratory: Decreased Breath Sounds
Sternum: Stable
Incision: Clean, Dry and Intact
Extremities: No Edema
[2025-02-08 02:45] LABS: Hematocrit 22.4 % (37.0-47.0); Hemoglobin 7.5 g/dL (12.0-16.0); Mean Corp Hgb Conc. 33.5 g/dL (33.0-37.0); Mean Corpuscular Hgb 30.5 pg (27.0-31.0); Mean Corpuscular Volume 91.1 fL (81.0-99.0); Mean Platelet Volume 9.5 fL (7.4-10.4); Platelet Count 185 10^3/uL (130-400); Red Blood Cell Count 2.46 10^6/uL (4.20-5.40); Red Cell Dist. Width 13.8 % (11.5-14.5); White Blood Cell Count 12.4 10^3/uL (4.8-10.8)
[2025-02-08] MEDS: CALCIUM GLUCONATE 100 IV (03:07)
[2025-02-08 03:09] LABS: Blood Urea Nitrogen 23 mg/dl (7-17); Calcium 8.7 mg/dl (8.4-10.2); Carbon Dioxide 26 mmol/L (22-30); Chloride 109 mmol/L (98-107); Estimated Creatinine Clearance 40 ml/min; Glucose 111 mg/dl (70-99); Magnesium 1.9 mg/dl (1.6-2.3); Potassium 4.6 mmol/L (3.5-5.1); Sodium 140 mmol/L (135-145); eGFR 55.42
[2025-02-08] MEDS: ROXICODONE 2.5 MG PO ×4 (03:45→17:57)
[2025-02-08 03:46] LABS: Hepatitis C Antibody Negative (Negative)
[2025-02-08] MEDS: ANCEF 5 IV ×2 (03:55→11:58)
[2025-02-08] MEDS: MAGNESIUM SULFATE 50 IV (04:17)
[2025-02-08 04:18] LABS: Glucose - Point of Care 91 mg/dl (70-99)
[2025-02-08] MEDS: ZOFRAN 4 MG IV ×2 (04:26→21:46)
[2025-02-08] MEDS: LEVOPHED 250 IV (04:38)
[2025-02-08] MEDS: TYLENOL 1000 MG PO ×3 (05:19→21:28)
[2025-02-08] MEDS: SYNTHROID 88 MCG PO (05:19)
[2025-02-08] MEDS: DILAUDID 0.25 MG IV (06:29)
--- NOTE | 2025-02-08 06:31 | PTCARENOTE ---
0600 Patient A x O, On 2 L NC, A Paced 100%, BP remains labile on Levo and Dubutimine titrations, HGB 7.5 on am Labs, I Unit PRBC ordered and transfusing. Contuines Insulin for gylecemic protocol.
--- NOTE | 2025-02-08 07:35 | W.PN.ANS.POP ---
Anesthesia Post Operative
- Anesthesia Post Op Note
Vital Signs Stable-See Nursing Note: Yes
Airway Patent: Yes
Adequate Pain Control: Yes
Change in Mental Status: No
Current Postoperative Nausea & Vomiting: No
Anesthesia Complications: No
General Anesthetic Recall: No
Unplanned Admission: No
Post Op Hydration Adequate: Yes
--- NOTE | 2025-02-08 08:22 | W.PN.INTV ---
Today's Communication / Plan
Recommendations
Up OOB as tolerated
Encourage incentive spirometer use
Pain control (she is splinting)
Wean off insulin drip per protocol with goal BG 110�140
Wean off inotropic + vasopressor support as BP + CI tolerate
Goal CI >2, goal MAP >65-70, goal Hb >7-8 g/dL
Removal of chest tubes per CT surgery team
Start budesonide + DuoNebs as she is having too much splinting to effectively inhale through either an MDI or DPI inhaler
Can resume Trelegy upon discharge
Outpatient pulmonary office follow-up with me or one of my colleagues will be offered to her for full PFTs and symptom monitoring/management
Corporate Sales Representative services will continue to follow along until downgraded to CVICU�telemetry status, at which point we will sign off assuming that there are no active pulmonary issues
Assessment
-
Assessment: 64-year-old female non-smoker with a past medical history of DM type II, hypothyroidism, hyperlipidemia, depression, obesity, hypertension, history of asthma, mild regurgitation, mitral stenosis, CAD, pulmonary hypertension, and chronic
HFpEF who presents for elective CABG + mitral valve replacement. Patient follows with cardiothoracic surgery with last visit on 01/24/[address] Hernández. Patient has known mitral valve stenosis via echo at [facility] patient been describing more fatigue +
SOB with activities. She has had a left heart cath in December 2024 which showed multiple tandem lesions in the LAD as well as moderate disease of her mid-RCA disease as well. She had an increased wedge pressure + LVEDP. She now presents for
cardiothoracic intervention. On 02/07/2025, she underwent CABG x 1 with extensive debridement of mitral annular calcification, chordal sparing mitral valve replacement, and modified left atrial MAZE. Patient tolerated the procedure well with no
complications and was transferred to the CVICU postoperatively. Corporate Sales Representative services consulted for additional management/recommendations.
Chronic conditions BREWERY REPRESENTATIVE: DM type II, hypothyroidism, hyperlipidemia, depression, obesity, hypertension, history of asthma, mild regurgitation, mitral stenosis, CAD, pulmonary hypertension, chronic HFpEF
Impression:
#Severe mitral valve annular calcification with severe mitral valve stenosis s/p extensive debridement of MAC requiring bovine pericardial patch reinforcement/repair of the fragile annulus + chordal sparing mitral valve replacement with 27 mm
bioprosthesis (POD #1)
#Intraoperative atrial fibrillation with hemodynamic instability s/p modified left atrial MAZE + left atrial appendage exclusion with 35 mm device (POD #1)
#Multivessel CAD s/p CABG x 1 (BAKER in situ to LAD - POD #1)
#Acute anemia due to above
#DM type II complicated by peripheral neuropathy
#Severe pulmonary hypertension
#Chronic diastolic heart failure
#Hypothyroidism
#Hyperlipidemia
#Severe asthma on Trelegy as an outpatient
Plan:
Patient was successfully extubated to nasal cannula on 02/07/2025, and is currently on 2 L/min nasal cannula saturating 89% and she says she is feeling better overall but still feeling chest discomfort mainly from postoperative pain in the setting of
her asthma
Maintain SpO2 >90-94%
prn nebulized bronchodilators - not currently bronchospastic
Given that she takes Trelegy, I will start her on budesonide + DuoNebs as I feel that she is not well enough yet to resume taking inhalers
Encourage incentive spirometer if patient can tolerate it given that she is having difficulty taking a breath then from splinting
Would encourage her to use the heart pillow to squeeze against her chest so that when she has to cough or take a deep breath, it will greatly assist her ability to inhale with less pain
Considering she is on triple inhaler therapy for her asthma, I will offer her to be seen by us in the Pulmonary office for full PFTs and symptom management. Her absolute eosinophil count was 400 on 01/31/2025, hence if her asthma symptoms progressed
then she would be a candidate for biologic therapy
Pulmonary artery catheter parameters will be followed
Pressors/antihypertensive/inotropes/diuretics will be provided as needed
Maintain MAP>65
Replete electrolytes with K>4, Mg>2
Monitor chest tube output (mediastinal chest tubes x 2 + left pleural chest tube x 1)
Monitor hemoglobin
Monitor platelet count and coags
Transfuse blood products as needed to maintain Hb>7g/dL, plt>50k (given post-operative status)
CT surgery managing chest tubes
Monitor blood sugar to maintain euglycemia with goal BG 110-140
Insulin drip per protocol
Continue DAPT with ASA + Plavix
Continue PO amiodarone
Aspiration precautions
DVT prophylaxis
Early nutrition
Early mobilization
Corporate Sales Representative services will continue to follow along while patient remains in the CVICU. Once transferred to CVICU�telemetry status then we will sign off at that time assuming no active pulmonary issues are ongoing.
Critical care statement: A total of 37 minutes of critical care time was provided for this patient today. This includes management of ventilator, spontaneous breathing trial, arterial blood gases, pressors, of unstable vital signs, evaluation of the
patient at bedside, reviewing the patient's pertinent medical records including radiographs, microbiology, laboratory evaluations, and discussion with primary team and critical care nursing.
Subjective Dataa
Subjective Data
Date of Service:
Date of Service: February 08, 2025
Chief Complaint: Corporate Sales Representative Follow Up
Subjective:
Patient seen today at bedside. Her niece, Filomena, was present at bedside and all questions answered. Patient's heart rate 71, BP 92/63 via NIBP, PAP 53/21, CO/CI: 4.32/2.7, respectively, and saturating 89% on 2 L/min. Patient on insulin drip at 2.3
units/hr, Levophed at 2 mcg/min and dobutamine at 1.5 mcg/kg/min. Patient feels well although has some difficulty taking a deep breath. She does take Trelegy as an outpatient, managed by her PCP.
Review of Systems
General: Other (Negative unless mentioned above)
Objective Data
Data Reviewed
Vital Signs / I&O / Oxygen:
Vital Signs
Temp Pulse Resp BP Pulse Ox
99.9 F 68 36 123/47 97
02/08/25 09:00 02/08/25 09:22 02/08/25 09:15 02/08/25 09:00 02/08/25 08:52
Intake and Output
02/07/25 02/08/25 02/09/25
06:59 06:59 06:59
Intake Total 2831.0 / 3145.1 666.5 / 666.5
Output Total 1685 / 1785 240 / 240
Balance 1146.0 / 1360.1 426.5 / 426.5
SaO2 [CPAP] 100
SaO2 [SIMV] 100
SaO2 97
Nasal Cannula flow liters per 2
minute
Physical Exam
General: Respiratory Distress (negative), Comfortable, Chills (negative) and Sweats (negative)
HEENT: Normocephalic and Anicteric
Cardiovascular: S1-S2, Regular Rhythm and Peripheral Edema (negative)
Respiratory: Wheeze (negative), Crackles (negative), Rhonchi (negative), Accessory Resp Muscle Use (Mild with exertion), Chest Tube (Mediastinal chest tubes x 2 + left pleural chest tube x 1) and Other (Reduced inspiratory effort)
GI: Soft, Non Distended, Non Tender and Normal Bowel Sounds
Neurology: AO x 3 and Tremors (negative)
Skin: Warm, Dry, Cyanosis (negative) and Jaundice (negative)
Labs/Micro/Reports
Lab Data
02/08/25 02:26
02/08/25 02:26
Laboratory Results
02/07/25
14:02
PT 19.1 H
INR 1.55
APTT 36.6 H
pH 7.38
pCO2 40 H
pO2 76 L
HCO3 23.7
O2 Delivery Level
--- NOTE | 2025-02-08 08:57 | PTCARENOTE ---
Patient received from maintenance mechanic 2nd shift resting in bed, sleepy but arousable and appropriate. A-paced via cm, SaO2 @ 97% on 2lnc. Epicardial A+V pacing wires to pulse generator - settings adjusted bedside w/TERE RONEL Contreras underlying, pacer backed up
to 50bpm. Mediastinal chest tubes x 2, Y-sites to one atrium, L pleural chest tube to separate atrium - both to -20cm suction w/no air leaks or crepitus noted. Salazar catheter to gravity. All procedural sites stable. Patient updated to plan of care
for the day, in agreement. See work list for full assessment, interventions performed, and intravenous infusion rates and titrations.
[2025-02-08] MEDS: LOW STRENGTH ASPIRIN 81 MG PO (09:07)
[2025-02-08] MEDS: CELEXA 40 MG PO (09:07)
[2025-02-08] MEDS: BACTROBAN 2% OINTMENT 1 APPLIC NASAL ×2 (09:07→20:35)
[2025-02-08] MEDS: NEURONTIN 100 MG PO ×3 (09:08→21:27)
[2025-02-08] MEDS: MAGNESIUM OXIDE 500 MG PO ×2 (09:08→20:29)
[2025-02-08] MEDS: PLAVIX 75 MG PO (09:08)
[2025-02-08] MEDS: SENOKOT-S 1 TABLET PO ×2 (09:08→20:34)
[2025-02-08] MEDS: PROTONIX 40 MG PO (09:08)
[2025-02-08] MEDS: THERAGRAN 1 TABLET PO (09:08)
[2025-02-08] MEDS: PACERONE PO (09:14)
[2025-02-08] MEDS: LOPRESSOR PO (09:14)
[2025-02-08] MEDS: SPIRIVA RESPIMAT 2.5 MCG 2 PUFF INH (09:15)
[2025-02-08] MEDS: SYMBICORT 80/4.5 MCG INHALER 2 PUFF INH (09:16)
[2025-02-08] MEDS: NOVOLOG FLEXPEN SC ×2 (09:52→13:10)
[2025-02-08 10:56] LABS: Glucose - Point of Care 117 mg/dl (70-99)
[2025-02-08 11:01] LABS: Glucose - Point of Care 146 mg/dl (70-99)
[2025-02-08 11:01] LABS: Glucose - Point of Care 132 mg/dl (70-99)
[2025-02-08] MEDS: NSS 500 IV (11:58)
--- NOTE | 2025-02-08 12:00 | PTCARENOTE ---
Hemodynamics assessed, assessment unchanged. Patient resting comfortably, dozing intermittently.
[2025-02-08 12:55] LABS: Glucose - Point of Care 116 mg/dl (70-99)
--- NOTE | 2025-02-08 13:49 | CM ---
Chart reviewed. Patient is independent of ADLS, lives with her and son in a [address], [address], ambulates with a SPC, patient lives outside the driving radius so referral sent to [facility]. Plan is for the patient to return home with [facility]. CM
to follow
[2025-02-08] MEDS: FERRLECIT 110 MG IV (13:51)
[2025-02-08] MEDS: NOVOLIN R INSULIN INFUSION 100 IV (14:32)
--- NOTE | 2025-02-08 14:35 | PN.DE.MGMTRT ---
Insulin Management
- -
02/08/2025 Diabetes Management Consult
Patient admitted 02/08 for scheduled CABG. PMH diabetes, hypothyroid, HLD, HTN, depression, obesity, asthma, pulmonary HTN, sever mitral valve calcification. Prior to admission was taking Trulicity .75 once weekly, Basaglar 20 units @ hs and
metformin 1000 BID. A1C on admission 6.7%, cr today 1.1, eGFR 55.62.
POD 1 s/p CABG, MVR. Patient is awake alert and oriented sitting up in bed able to discuss diabetes care. States she has had diabetes 30 years, originally took oral medication, sees primary provider for diabetes care. Discussed benefits or
farxiga, patient is agreeable.
Currently receiving glycemic protocol at 2.3 to 2.6 units per hour. Will continue glycemic protocol today. Prepare to transition tomorrow @ HS. Lantus 20 units then metformin 1000 mg BID and ADD Farxiga 10 mg.
Discussed with nurse
Will follow
Diabetes History
- -
Type of Diabetes: 2 requiring insulin
Pre-Admission Diabetes Regimen
02/07/25 02/08/25
14:02 02:26
Creatinine 1.0 1.1 H
Lab Results
Hemoglobin A1c 6.7 % (4.0-5.6) H 01/31/25 12:18
Insulin Pump Settings
IP Diabetes Regimen
02/07/25 02/07/25 02/07/25
14:02 14:59 16:05
Glucose 128 H
POC Glucose 128 H 119 H
02/07/25 02/07/25 02/07/25
17:00 18:07 20:10
Glucose
POC Glucose 116 H 126 H 106 H
02/07/25 02/08/25 02/08/25
21:57 00:13 02:06
Glucose
POC Glucose 113 H 103 H 119 H
02/08/25 02/08/25 02/08/25
02:26 04:15 06:28
Glucose 111 H
POC Glucose 91 132 H
02/08/25 02/08/25 02/08/25
08:21 10:55 12:53
Glucose
POC Glucose 146 H 117 H 116 H
Meal type: Breakfast
Amount consumed: 100%
Amount consumed: 0
Patient Education
[2025-02-08 15:03] LABS: Glucose - Point of Care 126 mg/dl (70-99)
[2025-02-08 16:03] LABS: Glucose - Point of Care 107 mg/dl (70-99)
--- NOTE | 2025-02-08 16:13 | PTCARENOTE ---
Patient assisted oob to chair x 2 assist. Brachial line d/c'd by TERE Katiana. Patient tolerated all procedures well. Resting comfortably w/family at bedside for visit.
[2025-02-08] MEDS: PACERONE 200 MG PO ×2 (16:42→21:27)
[2025-02-08] MEDS: NOVOLOG FLEXPEN 4 UNITS SC (16:56)
[2025-02-08 17:42] LABS: Glucose - Point of Care 251 mg/dl (70-99)
[2025-02-08] MEDS: FLEXBUMIN 50 IV (17:57)
[2025-02-08] MEDS: COUMADIN 1 MG PO (17:58)
[2025-02-08] MEDS: PULMICORT 0.5 MG INH (18:15)
[2025-02-08] MEDS: DUONEB 3 ML INH ×2 (18:15→21:05)
[2025-02-08 19:04] LABS: Glucose - Point of Care 178 mg/dl (70-99)
--- NOTE | 2025-02-08 20:00 | PTCARENOTE ---
Assumed care of patient at 1900. Patient found resting in bed at time of assessment. Patient is AOx4, follows commands appropriately, moves all extremities. Lung sounds are diminished at the bases, some wheezing is present on expiration in upper
lobes, saO2 92% on 2L. Patient has non productive occasional harsh cough. Patient is in SR/SB on the monitor, patient has normal palpable pulses, trace generalized anasarca is present, A+V wires are present but insulated. Patient has hypoactive BS
in all four quadrants, there is a acevedo present draining clear yellow urine. Patient has sternal incision approx with surg adhesive ACADEMIC COORDINATOR, ABD dressing over CT wounds that is CDI, bilateral LE incisions approx with surg adhesive ACADEMIC COORDINATOR and ecchymosis
around site. Patient has amputation of R 2nd toe. There is a R IJ cordis with swan@42 and R AC PIV. Patient is receiving Cordis/VIP KVO, Dobut@1.5 and insulin gtt. VSS.
[2025-02-08] MEDS: FLEXERIL 5 MG PO (20:27)
[2025-02-08] MEDS: LOPRESSOR 12.5 MG PO (20:28)
[2025-02-08 20:42] LABS: Glucose - Point of Care 149 mg/dl (70-99)
[2025-02-08] MEDS: LIPITOR 80 MG PO (21:28)
--- NOTE | 2025-02-08 21:51 | W.PN.CD ---
Today's Communication / Plan
-
cont. routine post operative care
wean dobutamine per CI goal >1.8, levophed for MAP goal >65
Impression / Plan
-
Impression/Plan: 64 y/o female with HLD, asthma, NIDDM with peripheral neuropathy, CAD and severe MS with severe pulmonary hypertension admitted for elective MVR and 1V CABG.
#Severe, calcific mitral stenosis
-Chronic, progressive.
-TTE gradient = 8 mmHg, ETHAN gradient 5 mmHg (under sedation).
-Now s/p chordal sparing SMVR (#27 Mcmahan Mitris [place], SN: [id number]) with mitral annulus pericardial patch (SN: [id number]) and LAAE (#35 [place], SN: [id number]) with Dr. Hernández, 02/07/2025.
-Anticipate routine post operative management.
-Wean inotropes/pressors for a MAP > 65 and a CI > 1.8 L/min/m2.
-Extubated 02/07, cont. nebs, IS
-Pain/chest tube management per CT surgery
#CAD
-Chronic, progressive.
-Cath films reviewed.
-S/P BAKER to LAD.
-Moderate RCA disease, easily treated with PCI if deemed clinically necessary.
-Post operative management as above.
-DAPT per protocol, aspirin ad infinitum.
-High dose, high potency statin.
#HLD
-Chronic, stable.
-Continue atorvastatin 40 mg daily when taking PO.
-Goal LDL < 55.
#NIDDM
-Chronic, controlled.
-HbA1c = 6.7%.
-Insulin gtt per protocol.
EKG Atrial paced
Latest hemos RA 14, PA 56/20, CO/CI 4.9/3.06, SVR 981 on dobutamine 1.5 levophed 2
Subjective/Interval History:
POD #1 for MVR/CABG x1.
DATA:
MVR/CABG, 02/07/2025:
Procedure(s) Performed:
1. Standard sternotomy with aortic and bicaval cannulation.
2. Coronary artery bypass grafting x 1 [BAKER in situ to LAD] with internal mammary artery harvesting.
3. Extensive debridement of mitral annular calcification using the CUSA ultrasonic debridement device and requiring bovine pericardial patch reinforcement/repair of the fragile annulus.
4. Chordal sparing mitral valve replacement [27 mm bioprosthesis].
5. Modified left atrial maze [encompass clamp, posterior wall isolation] and left atrial appendage exclusion [35 mm device].
6. Placement of temporary atrial and ventricular pacing wires.
7. Transesophageal echocardiography.
8. Exploration of lower extremity for vein, none was found.
Intraoperative ETHAN, 02/07/2025:
CONCLUSIONS
Moderate mitral stenosis, mild mitral regurgitation, severe MAC, severe
leaflets calcifications. Annulus measures 27 x 28 mm.
Normal left ventricular size and systolic function.
Mild left atrial enlargement.
Normal right ventricular size and function.
The ascending aorta has atheroma less than 5 mm and mild calcifications.
POST OPERATIVE FINDINGS
Status post mitral valve replacement with 27 mm Mi mitral valve, status post
debridement mitral annulus, the valve is well-seated, no perivalvular leak,
leaflets are functioning well. No intra valvular regurgitation, mean gradient
is 4 mmHg.
Status post CABG x 1, the left ventricle is vigorously inder, EF 60 to
65%, no regional wall motion abnormalities seen.
Status post left atrial appendage exclusion, the clip is well-seated, no flow
seen through the left atrial appendage remnant.
Normal right ventricular size and function.
Mild tricuspid regurgitation. No aortic valve abnormalities.
Physical Exam
Vital Signs/Labs
Vital Signs
Temp Pulse Resp BP Pulse Ox
37.8 C 55 18 111/47 100
02/08/25 20:00 02/08/25 21:15 02/08/25 21:15 02/08/25 21:00 02/08/25 21:15
02/07/25 02/08/25 02/09/25
06:59 06:59 06:59
Actual Weight 69.4 kg 71.6 kg
02/08/25 02:26
02/08/25 02:26
PT 19.1 Sec (11.4-14.6) H 02/07/25 14:02
INR 1.55 02/07/25 14:02
APTT 36.6 Sec (23.4-35.0) H 02/07/25 14:02
Magnesium 1.9 mg/dl (1.6-2.3) 02/08/25 02:26
Physical Exam
Constitutional: No acute distress
Cardiovascular: Rhythm & rate is regular
Neuro/Psych: AO x 3
Data Reviewed
-
Date of Service: February 08, 2025
Medical Decision Making: Reviewed Test Results
EKG: Tracing Personally Visualized and interpreted
X-Ray/CT/US/MRI/NUC/PET: Image Personally Visualized and interpreted
Labs: Labs Reviewed by me
[2025-02-08 22:31] LABS: Glucose - Point of Care 72 mg/dl (70-99)
[2025-02-08 23:27] LABS: Glucose - Point of Care 70 mg/dl (70-99)
[2025-02-09] VITALS (41 sets, daily range): BP systolic 68–133; BP diastolic 31–70; PULSE 61; O2SAT 98; BMI 35.5
[2025-02-09] MEDS: ROXICODONE 2.5 MG PO
--- NOTE | 2025-02-09 | PTCARENOTE ---
Patient reassessed. Shortly following assessment patient reported some increased WOB and associated wheezing. RT contacted for prn neb symptoms subsided. Patient appears to have converted to a junctional rhythm starting at approx 2100. HR in high
50s patient appears asymptomatic. CT PA notified. No orders at this time. Patient c/o pain r/t muscle spasms given flexeril. Shortly after patient c/o nausea given zofran QTc evaluated to be 0.48. Nausea resolved following administration.
[2025-02-09 00:09] LABS: Glucose - Point of Care 70 mg/dl (70-99)
[2025-02-09 01:08] LABS: Glucose - Point of Care 71 mg/dl (70-99)
[2025-02-09 02:07] LABS: Glucose - Point of Care 77 mg/dl (70-99)
[2025-02-09 03:14] LABS: Glucose - Point of Care 84 mg/dl (70-99)
--- NOTE | 2025-02-09 03:21 | W.PN.CT ---
Today's Communication / Plan
-
-POD #2
-Nausea and vomiting overnight.
-Anemia stable, Hgb 7.6 following 1 unit RBC's yesterday. May be dilutional.
- CI >2.0, BP 130's/50's, CVP 15-20 on Dobutamine 1.5. Discontinue swan once off Dobutamine
-Amio restarted yesterday, developed junctional rhythm last evening with rates high 50's to low 60's.
-CT output: Meds 80/375, Pl 30/70 for 12/24hrs. discontinue med CT's
-UO for 295/755 12/24hrs, BUN/Cr 18/0.9, diurese today.
-Coumadin 1mg given yesterday. INR pending. Will start heparin drip this morning with Ptt goal of 40-60
Assessment / Plan
-
s/p MVR(27mm Mitris), CABGx1(BAKER to LAD), GUSTAVO CASIANO POD#2
-CAD
-HTN
-HLD
-HFpEF
-asthma
-T2DM
-hypothyroid
-anxiety/depression
-acute blood loss anemia
Subjective
Procedure
02/07/25 s/p MVR(27mm Mitris), CABGx1(BAKER to LAD), GUSTAVO CASIANO by Dr. Hernández
-
Date of Service: February 09, 2025
Objective Data
-
Lab Results
02/09/25 03:28
02/09/25 03:28
PT 19.1 Sec (11.4-14.6) H 02/07/25 14:02
INR 1.55 02/07/25 14:02
APTT 35.5 Sec (23.4-35.0) H 02/09/25 04:28
Vital Signs
Vital Signs
Vital Signs
Temp Pulse Resp BP Pulse Ox
98.2 F 54 7 117/46 95
02/09/25 05:00 02/09/25 05:30 02/09/25 05:30 02/09/25 05:00 02/09/25 05:15
CT Intake/Output/Weight
02/08/25 02/08/25 02/09/25
06:59 18:59 06:59
Intake Total 1321.1 / 3145.1 1221.3 / 1594.9 373.6 / 1594.9
Output Total 860 / 1785 795 / 1200 405 / 1200
Balance 461.1 / 1360.1 426.3 / 394.9 -31.4 / 394.9
SaO2: 98
Physical Exam
-
General: AOx3
Cardiovascular: Regular rate & rhythm
Respiratory: Decreased Breath Sounds
Sternum: Stable
Incision: Clean, Dry and Intact
Extremities: Edema +1
[2025-02-09] MEDS: REGLAN 10 MG IV (03:32)
[2025-02-09 03:59] LABS: Hemoglobin 7.6 g/dL (12.0-16.0); Mean Corpuscular Hgb 30.4 pg (27.0-31.0); Mean Platelet Volume 9.7 fL (7.4-10.4); Platelet Count 100 10^3/uL (130-400); Red Cell Dist. Width 14.5 % (11.5-14.5); White Blood Cell Count 10.9 10^3/uL (4.8-10.8)
--- NOTE | 2025-02-09 04:00 | PTCARENOTE ---
Patient reassessed. Patinet given 2.5 Sushma at 0000 for pain. Three hours late patient nausea resumed. CT PA contacted for one time order of Reglan which resolved nausea. Orders received for PTT and to initiate heparin gtt this AM. Labs obtained.
Hygiene care provided. Remians in junctional rhythm on monitor.
[2025-02-09 04:13] LABS: Blood Urea Nitrogen 18 mg/dl (7-17); Calcium 7.6 mg/dl (8.4-10.2); Carbon Dioxide 27 mmol/L (22-30); Chloride 109 mmol/L (98-107); Estimated Creatinine Clearance 50 ml/min; Glucose 69 mg/dl (70-99); Magnesium 1.8 mg/dl (1.6-2.3); Potassium 4.3 mmol/L (3.5-5.1); Sodium 137 mmol/L (135-145); eGFR > 60.00
[2025-02-09 04:21] LABS: Glucose - Point of Care 105 mg/dl (70-99)
[2025-02-09] MEDS: LASIX 20 MG IV (04:22)
[2025-02-09 05:10] LABS: APTT 35.5 Sec (23.4-35.0)
[2025-02-09] MEDS: TYLENOL 1000 MG PO ×2 (05:58→20:38)
[2025-02-09] MEDS: SYNTHROID 88 MCG PO (05:58)
[2025-02-09 06:29] LABS: INR 1.34; PT 16.9 Sec (11.4-14.6)
[2025-02-09] MEDS: HEPARIN 25000 UNITS/250 ML IV (06:44)
--- NOTE | 2025-02-09 07:55 | PTCARENOTE ---
Dr Hernández at bedside, Dobutamine and Heparin turned off at this time; recheck PTT at 1000.
[2025-02-09] MEDS: LOW STRENGTH ASPIRIN 81 MG PO (08:07)
[2025-02-09] MEDS: PROTONIX 40 MG PO (08:07)
[2025-02-09] MEDS: CELEXA 40 MG PO (08:07)
[2025-02-09] MEDS: MAGNESIUM OXIDE 500 MG PO ×2 (08:07→20:06)
[2025-02-09] MEDS: SENOKOT-S 1 TABLET PO ×2 (08:07→20:06)
[2025-02-09] MEDS: NEURONTIN 100 MG PO ×3 (08:07→20:38)
[2025-02-09] MEDS: PLAVIX 75 MG PO (08:07)
[2025-02-09] MEDS: THERAGRAN 1 TABLET PO (08:07)
[2025-02-09] MEDS: BACTROBAN 2% OINTMENT 1 APPLIC NASAL ×2 (08:10→20:06)
--- NOTE | 2025-02-09 08:22 | W.PN.INTV ---
Today's Communication / Plan
Recommendations
Up OOB as tolerated
Encourage incentive spirometer use
Pain control (she is splinting)
Wean off insulin drip per protocol with goal BG 110�140
Goal MAP >65-70, goal Hb >7-8 g/dL
Continue budesonide + DuoNebs as she is having too much splinting to effectively inhale through either an MDI or DPI inhaler
Can resume Trelegy upon discharge
Outpatient pulmonary office follow-up with me or one of my colleagues will be offered to her for full PFTs and symptom monitoring/management
Patient is going to be downgraded to CVICU�telemetry status later today. Once she is downgraded then our service will sign off. Thank you for allowing us to be involved in the care of this patient and please call back with any questions or
concerns.
Assessment
-
Assessment: 64-year-old female non-smoker with a past medical history of DM type II, hypothyroidism, hyperlipidemia, depression, obesity, hypertension, history of asthma, mild regurgitation, mitral stenosis, CAD, pulmonary hypertension, and chronic
HFpEF who presents for elective CABG + mitral valve replacement. Patient follows with cardiothoracic surgery with last visit on 01/24/[address] Hernández. Patient has known mitral valve stenosis via echo at [facility] patient been describing more fatigue +
SOB with activities. She has had a left heart cath in December 2024 which showed multiple tandem lesions in the LAD as well as moderate disease of her mid-RCA disease as well. She had an increased wedge pressure + LVEDP. She now presents for
cardiothoracic intervention. On 02/07/2025, she underwent CABG x 1 with extensive debridement of mitral annular calcification, chordal sparing mitral valve replacement, and modified left atrial MAZE. Patient tolerated the procedure well with no
complications and was transferred to the CVICU postoperatively. Life Support Technician services consulted for additional management/recommendations.
Chronic conditions INSURANCE ACCOUNT EXECUTIVE: DM type II, hypothyroidism, hyperlipidemia, depression, obesity, hypertension, history of asthma, mild regurgitation, mitral stenosis, CAD, pulmonary hypertension, chronic HFpEF
Impression:
#Severe mitral valve annular calcification with severe mitral valve stenosis s/p extensive debridement of MAC requiring bovine pericardial patch reinforcement/repair of the fragile annulus + chordal sparing mitral valve replacement with 27 mm
bioprosthesis (POD #2)
#Intraoperative atrial fibrillation with hemodynamic instability s/p modified left atrial MAZE + left atrial appendage exclusion with 35 mm device (POD #2)
#Multivessel CAD s/p CABG x 1 (BAKER in situ to LAD - POD #2)
#Acute anemia due to above
#DM type II complicated by peripheral neuropathy
#Severe pulmonary hypertension
#Chronic diastolic heart failure
#Hypothyroidism
#Hyperlipidemia
#Severe asthma on Trelegy as an outpatient
Plan:
Patient was successfully extubated to nasal cannula on 02/07/2025, and is currently on 2 L/min nasal cannula saturating 89% and she says she is feeling better overall but still feeling chest discomfort mainly from postoperative pain in the setting of
her asthma
Maintain SpO2 >90-94%
prn nebulized bronchodilators - not currently bronchospastic
Given that she takes Trelegy, I started budesonide + DuoNebs as she was not strong enough to resume taking inhalers and had chest pain during deep breaths
Would continue with budesonide + DuoNebs while hospitalized and resume Trelegy upon discharge
Encourage incentive spirometer if patient can tolerate given that she is having difficulty taking a breath due to splinting
Would encourage her to use the heart pillow to squeeze against her chest so that when she has to cough or take a deep breath, it will greatly assist her ability to inhale with less pain
Considering she is on triple inhaler therapy for her asthma, I will offer her to be seen by us in the Pulmonary office for full PFTs and symptom management. Her absolute eosinophil count was 400 on 01/31/2025, hence if her asthma symptoms progressed
then she would be a candidate for biologic therapy
PAC removed
Pressors/antihypertensive/inotropes/diuretics will be provided as needed
Maintain MAP>65
Replete electrolytes with K>4, Mg>2
Chest tubes have been removed
Monitor hemoglobin
Monitor platelet count and coags
Transfuse blood products as needed to maintain Hb>7g/dL, plt>50k (given post-operative status)
Monitor blood sugar to maintain euglycemia with goal BG 110-140
Insulin drip per protocol - plan to be stopped later today; once stopped, use ISS to maintain BG goal as above
Continue DAPT with ASA + Plavix
Continue PO amiodarone
Aspiration precautions
DVT prophylaxis
Early nutrition
Early mobilization
Patient is going to be downgraded to CVICU�telemetry status later today. Once she is downgraded then our service will sign off. Thank you for allowing us to be involved in the care of this patient and please call back with any questions or
concerns.
Total time spent today was 58 minutes for this encounter. Time includes reviewing laboratory test/imaging results, reviewing pertinent medical records, obtaining and reviewing medical history, performing an appropriate exam, ordering medications,
tests and procedures. Time also includes documentation of this encounter, coordinating patient care and communicating with other healthcare professionals. Total time does not include separately billed tests performed on this date of service.
Subjective Dataa
Subjective Data
Date of Service:
Date of Service: February 09, 2025
Chief Complaint: Life Support Technician Follow Up
Subjective:
Patient seen this morning. Patient's son, Eliseo, at bedside. Patient is resting in bed, in no acute distress. Currently on insulin drip at 0.1 units/h and it is going to be weaned off later today. BP 120/41 and HR 66. She denies chest pain, DOMINGO,
nausea, SOB, fevers or chills.
Review of Systems
General: Other (Negative unless mentioned above)
Objective Data
Data Reviewed
Vital Signs / I&O / Oxygen:
Vital Signs
Temp Pulse Resp BP Pulse Ox
97.6 F 64 14 120/51 98
02/09/25 10:00 02/09/25 10:05 02/09/25 10:05 02/09/25 09:00 02/09/25 10:00
Intake and Output
02/08/25 02/09/25 02/10/25
06:59 06:59 06:59
Intake Total 2831.0 / 3145.1 1619.0 / 1643.1 155.6 / 155.6
Output Total 1685 / 1785 1425 / 1570 330 / 330
Balance 1146.0 / 1360.1 194.0 / 73.1 -174.4 / -174.4
SaO2 [CPAP] 100
SaO2 [SIMV] 100
SaO2 98
Nasal Cannula flow liters per 2
minute
Physical Exam
General: Respiratory Distress (negative), Comfortable, Chills (negative) and Sweats (negative)
HEENT: Normocephalic and Anicteric
Cardiovascular: S1-S2, Regular Rhythm and Peripheral Edema (negative)
Respiratory: Wheeze (negative), Rhonchi (negative), Non-Labored Respirations and Other (Coarse breath sounds bilaterally)
GI: Soft, Non Distended, Non Tender and Normal Bowel Sounds
Neurology: AO x 3 and Tremors (negative)
Skin: Warm, Dry, Cyanosis (negative) and Jaundice (negative)
Labs/Micro/Reports
Lab Data
02/09/25 03:28
02/09/25 03:28
Laboratory Results
02/09/25 02/09/25 02/09/25
04:28 06:12 10:00
PT 16.9 H
INR 1.34
APTT 35.5 H Cancelled
02/09/25
12:50
PT
INR
APTT Cancelled
[2025-02-09] MEDS: LASIX 40 MG IV (08:27)
[2025-02-09 08:40] LABS: Glucose - Point of Care 93 mg/dl (70-99)
[2025-02-09 08:40] LABS: Glucose - Point of Care 101 mg/dl (70-99)
[2025-02-09] MEDS: NOVOLOG FLEXPEN SC (08:44)
--- NOTE | 2025-02-09 08:45 | PTCARENOTE ---
Received pt from title curator RN at 0700; pt AAOx3 and resting comfortably in chair; Sinus Bradycardia on monitor and VSS: Epicardial A/V wires insulated; Bean Guzmán floated to 42 and PIV x2 all lines leveled and zeroed; Dobutamine and Heparin
off per Dr Hernández; Insulin infusing see flow sheet for details; Lungs diminished with crackles at bases; CT x3 to -20 wall suction no air leak and no crepitus noted; IS to 1000; hypoactive bowel sounds; Salazar catheter draining yellow urine; palpable
pulses throughout; generalized trace edema noted; all surgical sites C/D/I; see nursing documentation for further details.
CI 2.35
CO 3.76
SVR 1340
[2025-02-09] MEDS: DUONEB 3 ML INH ×4 (08:50→18:05)
[2025-02-09] MEDS: PULMICORT 0.5 MG INH ×2 (08:50→18:05)
[2025-02-09 10:13] LABS: Glucose - Point of Care 230 mg/dl (70-99)
[2025-02-09] MEDS: OFIRMEV 100 IV (10:36)
--- NOTE | 2025-02-09 11:06 | PTCARENOTE ---
Chest tubes x3 removed per CT PA order.
[2025-02-09 11:15] LABS: Glucose - Point of Care 246 mg/dl (70-99)
[2025-02-09 12:09] LABS: Glucose - Point of Care 227 mg/dl (70-99)
--- NOTE | 2025-02-09 12:56 | PTCARENOTE ---
Assessment unchanged; Junctional/Sinus Bradycardia on monitor and VSS: [place]-mya catheter removed per CT PA order; pt OOB to chair with RN; pt awaiting lunch and family at bedside.
[2025-02-09 13:22] LABS: Glucose - Point of Care 197 mg/dl (70-99)
[2025-02-09] MEDS: NSS IV (13:23)
[2025-02-09] MEDS: FARXIGA 10 MG PO (13:25)
[2025-02-09] MEDS: NOVOLOG FLEXPEN 4 UNITS SC ×2 (13:25→18:04)
[2025-02-09] MEDS: FERRLECIT 110 MG IV (13:26)
[2025-02-09] MEDS: TYLENOL PO (13:55)
[2025-02-09 14:11] LABS: Glucose - Point of Care 203 mg/dl (70-99)
[2025-02-09 15:02] LABS: Glucose - Point of Care 179 mg/dl (70-99)
[2025-02-09] MEDS: NOVOLIN R INSULIN INFUSION 100 IV (15:04)
[2025-02-09 15:40] LABS: APTT 91.2 Sec (23.4-35.0)
[2025-02-09 16:04] LABS: Glucose - Point of Care 84 mg/dl (70-99)
[2025-02-09] MEDS: NSS 500 IV (16:04)
--- NOTE | 2025-02-09 16:15 | PTCARENOTE ---
Pt OOB with 2 RNs to ambulate, pt reached bed and became dizzy and lightheaded; pt helped back to chair by 2 RNs; Junctional on monitor and VSS: updated CT PA.
--- NOTE | 2025-02-09 16:52 | PTCARENOTE ---
1 unit of PRBC infusing per CT PA order; Sinus Bradycardia on monitor and VSS; assessment unchanged and pt resting comfortably in chair.
[2025-02-09 17:15] LABS: Glucose - Point of Care 72 mg/dl (70-99)
[2025-02-09] MEDS: GLUCOPHAGE 1000 MG PO (17:24)
[2025-02-09] MEDS: COUMADIN 2 MG PO (17:24)
[2025-02-09 18:04] LABS: Glucose - Point of Care 100 mg/dl (70-99)
[2025-02-09] MEDS: FLEXERIL 5 MG PO (18:31)
[2025-02-09 19:06] LABS: Glucose - Point of Care 182 mg/dl (70-99)
--- NOTE | 2025-02-09 20:00 | PTCARENOTE ---
Assumed care of patient at 1900. Patient found resting in bed at time of assessment. Patient is AOx4, follows commands appropriately, moves all extremities. Lung sounds are diminished in the bases, some wheezing is noted in the upper lobes, saO2 93%
on RA. Heart sounds are audible, patient is in junctional rhythm on the monitor, normal palpable pulses and trace generalized anasarca. Patient has active BS in all four quadrants and there is a acevedo catheter draining clear yellow urine. Patient
has sternal incision approx with surg adhesive STOCK SUPERVISOR, ABD dressing over CT wounds that is CDI, and bilateral lower extremity incisions approx with surg adhesive STOCK SUPERVISOR ecchymotic around site. Patient has R hand PIV receiving heparin@5 and L FA PIV
receiving insulin gtt. There is a R IJ cordis receiving KVO. VSS. Call vogel within reach.
[2025-02-09 20:14] LABS: Glucose - Point of Care 119 mg/dl (70-99)
[2025-02-09] MEDS: LIPITOR 80 MG PO (20:39)
[2025-02-09 21:07] LABS: Glucose - Point of Care 93 mg/dl (70-99)
[2025-02-09] MEDS: LANTUS 0.2 UNITS SC (21:07)
[2025-02-09 21:34] LABS: APTT 71.5 Sec (23.4-35.0)
[2025-02-10] VITALS (43 sets, daily range): BP systolic 103–172; BP diastolic 40–128; BMI 35.6
--- NOTE | 2025-02-10 | PTCARENOTE ---
Salazar discontinued at 0000 per order patient DTV at 0600. Insulin gtt discontinued at 2300 blood sugar 121.
[2025-02-10 00:13] LABS: Glucose - Point of Care 88 mg/dl (70-99)
[2025-02-10 00:13] LABS: Glucose - Point of Care 121 mg/dl (70-99)
[2025-02-10] MEDS: MAGNESIUM SULFATE 50 IV ×2 (00:33→12:41)
--- NOTE | 2025-02-10 00:43 | PTCARENOTE ---
Patient with 9 beat run of SVT vs Atrial Tachycardia. CT HAT IRONER notified. Received orders for mag repletion via IV.
[2025-02-10 01:05] LABS: Glucose - Point of Care 120 mg/dl (70-99)
[2025-02-10 03:38] LABS: Hematocrit 25.1 % (37.0-47.0); Hemoglobin 8.1 g/dL (12.0-16.0); Mean Corp Hgb Conc. 32.3 g/dL (33.0-37.0); Mean Corpuscular Hgb 29.9 pg (27.0-31.0); Mean Corpuscular Volume 92.6 fL (81.0-99.0); Mean Platelet Volume 9.9 fL (7.4-10.4); Platelet Count 116 10^3/uL (130-400); Red Blood Cell Count 2.71 10^6/uL (4.20-5.40); Red Cell Dist. Width 14.6 % (11.5-14.5); White Blood Cell Count 11.5 10^3/uL (4.8-10.8)
[2025-02-10 03:46] LABS: INR 1.69; PT 20.1 Sec (11.4-14.6)
[2025-02-10 03:47] LABS: APTT 52.7 Sec (23.4-35.0)
[2025-02-10 03:48] LABS: Glucose - Point of Care 123 mg/dl (70-99)
[2025-02-10 04:05] LABS: Blood Urea Nitrogen 20 mg/dl (7-17); Calcium 7.9 mg/dl (8.4-10.2); Carbon Dioxide 28 mmol/L (22-30); Chloride 107 mmol/L (98-107); Estimated Creatinine Clearance 46 ml/min; Glucose 100 mg/dl (70-99); Magnesium 2.8 mg/dl (1.6-2.3); Potassium 4.5 mmol/L (3.5-5.1); Sodium 136 mmol/L (135-145); eGFR > 60.00
[2025-02-10] MEDS: LOPRESSOR 2.5 MG IV ×4 (05:01→13:10)
--- NOTE | 2025-02-10 05:03 | W.PN.CT ---
Today's Communication / Plan
-
-POD #3
-developed afib with RVR up to 160 with chest pain ~0445 hrs, TPW set to VVI 60 with underlying mobitz block, s/p amio bolus/gtt, mag, metoprolol, now back to junctional 50s, currently paced
-s/p 1 additional unit PRBC yesterday
-dobutamine off, de-lined
-UO for in 12/24hrs, given lasix BID yesterday.
-Continue heparin drip this morning with Ptt goal of 40-60
-Coumadin 2 mg given yesterday, INR this AM 1.69
Assessment / Plan
-
s/p MVR(27mm Mitris), CABGx1(BAKER to LAD), GUSTAVO CASIANO POD#[address] Hernández
Post op ETHAN: valve is well-seated, no perivalvular leak, leaflets are functioning well. No intra valvular regurgitation, mean gradient is 4 mmHg. LVEF 60 to 65%, no regional wall motion abnormalities seen.
Status post left atrial appendage exclusion, the clip is well-seated, no flow seen through the left atrial appendage remnant.
-CAD
-HTN
-HLD
-HFpEF
-asthma
-T2DM
-hypothyroid
-anxiety/depression
-acute blood loss anemia
-post op afib with rvr
Subjective
Procedure
02/07/25 s/p MVR(27mm Mitris), CABGx1(BAKER to LAD), GUSTAVO CASIANO by Dr. Hernández
-
Date of Service: February 10, 2025
Objective Data
-
Lab Results
02/10/25 03:10
02/10/25 03:10
PT 20.1 Sec (11.4-14.6) H 02/10/25 03:10
PT Cancelled 02/10/25 03:10
INR 1.69 02/10/25 03:10
INR Cancelled 02/10/25 03:10
APTT 52.7 Sec (23.4-35.0) H 02/10/25 03:10
Vital Signs
Vital Signs
Temp Pulse Resp BP Pulse Ox
98.6 F 58 18 129/50 97
02/10/25 03:00 02/10/25 04:20 02/10/25 03:00 02/10/25 04:00 02/10/25 04:20
CT Intake/Output/Weight
02/09/25 02/09/25 02/10/25
06:59 18:59 06:59
Intake Total 397.7 / 1643.1 621.0 / 764.9 143.9 / 764.9
Output Total 630 / 1570 1095 / 5 990 / 2084
Balance -232.3 / 73.1 -474.0 / -1320.1 -846.1 / -1320.1
SaO2: 97
Physical Exam
-
General: Awake and Oriented
Cardiovascular: Irregular rate & rhythm, No Murmurs and No Rub
Respiratory: Clear, Equal and Decreased Breath Sounds
Sternum: Stable
Incision: Clean, Dry and Intact
Extremities: No Edema and No Erythema
Data Reviewed
-
Lab Results: Results Reviewed
Medications: Active Meds Reviewed
Chest X-Ray: Report Reviewed
ECG: Report Reviewed
[2025-02-10] MEDS: CORDARONE 103 MG IV ×3 (05:06→15:00)
[2025-02-10] MEDS: FLEXERIL 5 MG PO (05:20)
[2025-02-10] MEDS: SYNTHROID 88 MCG PO (05:21)
[2025-02-10] MEDS: TYLENOL 1000 MG PO ×2 (05:21→23:53)
[2025-02-10] MEDS: CORDARONE 518 MG IV ×2 (05:36→12:59)
--- NOTE | 2025-02-10 06:36 | PTCARENOTE ---
At approx 0447 patient entered afib with RVR HR 150s-170s while having a coughing episode. On assessment patient's SBP<140 previously in the 110s patient was alert, oriented but reported 'my heart is beating fast'. EKG obtained confirming rhythm. CT
CLINICAL SYSTEMS ANALYST notified. Received orders for lopressor 2.5 followed by amio bolus, followed by additional lopressor 2.5, and finally with amio gtt. Patient had incontinent of urine during this time linens changed purewick applied. At 0557 patient broke out of
afib 100% vpaced at 60bpm. Pacemaker paused showed junctional rhythm in the 40s. Patient given scheduled medications for pain. Call blel within reach.
[2025-02-10] MEDS: PULMICORT 0.5 MG INH (07:08)
[2025-02-10] MEDS: DUONEB 3 ML INH ×2 (07:08→13:27)
[2025-02-10] MEDS: MAGNESIUM OXIDE PO ×2 (07:20→23:54)
[2025-02-10] MEDS: TRANSDERM-SCOP 1 PATCH TRANSDERM (07:46)
--- NOTE | 2025-02-10 08:05 | PTCARENOTE ---
received pt from previous rn. Pt AAOx4, a-fib per monitor, v wire set to 72/10/3, +pulses, pox 100% on 4L NC, lungs diminished with crackles at bases, hypoactive bs, pt c/o nausea, voiding clear yellow urine via purwick, all surgical sites intact,
RIJ cordis and pivx2 intact. call vogel within reach
--- NOTE | 2025-02-10 08:18 | PTCARENOTE ---
Received pt from night custodian RN; pt AAOx3 and resting comfortably in bed; V paced on monitor and VSS; Epicardial A/V wires set to VVI 60/10/3; Dr Hernández at and increased HR to 72, new settings VVI 72/10/3; Heparin infusing see flow sheet for details;
RIJ Cordis, and PIV x2 all patent; Lungs diminished with crackles at bases; IS to 1000; Hypoactive bowel sounds, pt nauseas and medication administered see MAR for details; pt voiding yellow urine via purewick; palpable pulses throughout;
generalized trace edema noted; all surgical sites C/D/I; see nursing documentation for further details.
[2025-02-10] MEDS: FARXIGA 10 MG PO (09:22)
[2025-02-10] MEDS: TESSALON PERLES 100 MG PO (09:22)
[2025-02-10] MEDS: LOW STRENGTH ASPIRIN 81 MG PO (09:22)
[2025-02-10] MEDS: GLUCOPHAGE 1000 MG PO ×2 (09:22→16:56)
[2025-02-10] MEDS: PROTONIX 40 MG PO (09:22)
[2025-02-10] MEDS: PLAVIX 75 MG PO (09:22)
[2025-02-10] MEDS: BACTROBAN 2% OINTMENT 1 APPLIC NASAL ×2 (09:23→20:12)
[2025-02-10] MEDS: THERAGRAN PO (09:23)
[2025-02-10] MEDS: SENOKOT-S PO ×2 (09:25→23:54)
[2025-02-10] MEDS: NEURONTIN PO ×2 (09:25→16:37)
[2025-02-10] MEDS: LIDOCAINE 4% PATCH TOPICAL (09:26)
[2025-02-10] MEDS: BUMEX 2 MG IV (09:37)
[2025-02-10 09:53] LABS: Glucose - Point of Care 139 mg/dl (70-99)
[2025-02-10 10:12] LABS: APTT 58.6 Sec (23.4-35.0)
--- NOTE | 2025-02-10 11:29 | W.PN.CD ---
Today's Communication / Plan
-
npo p for ppm tomorrow
consider indication for plavix if will be on asa and OAT
Impression / Plan
-
Impression/Plan: 64 y/o female with HLD, asthma, NIDDM with peripheral neuropathy, CAD and severe MS with severe pulmonary hypertension admitted for elective MVR and 1V CABG.
#Severe, calcific mitral stenosis
-Chronic, progressive.
-TTE gradient = 8 mmHg, ETHAN gradient 5 mmHg (under sedation).
-Now s/p chordal sparing SMVR (#27 Mcmahan Mitris Reslia, SN: [id number]) with mitral annulus pericardial patch (SN: [id number]) and LAAE (#35 Atriclip, SN: [id number]) with Dr. Hernández, 02/07/2025.
-started on warfarin
-rhythm had been junctional then afib with RVR requiring amiodarone, temp wire now pacing.
-Will require ppm for tachybrady as ul slow junction and need av tee/aad for af with rvr
-npo p tonight will add to schedule
#PAF:
-recurrent, rapid
-IV AMiodarone stopped due to nausea transition to p.o.
- C2 V score:5 (Age, CAD, hypertension, diabetes, female) recommend anticoagulation
#CAD
-Chronic, progressive.
-Cath films reviewed.
-S/P BAKER to LAD.
-Moderate RCA disease, easily treated with PCI if deemed clinically necessary.
-Post operative management as above.
- Given need for anticoagulation, would recommend holding clopidogrel and continue just aspirin and anticoagulant
-High dose, high potency statin.
#HLD
-Chronic, stable.
-Continue atorvastatin 40 mg daily when taking PO.
-Goal LDL < 55.
#NIDDM
-Chronic, controlled.
-HbA1c = 6.7%.
-Insulin gtt per protocol.
Subjective/Interval History:
overninght af with rvr-->pacing as ulr is junctional
DATA:
MVR/CABG, 02/07/2025:
Procedure(s) Performed:
1. Standard sternotomy with aortic and bicaval cannulation.
2. Coronary artery bypass grafting x 1 [BAKER in situ to LAD] with internal mammary artery harvesting.
3. Extensive debridement of mitral annular calcification using the CUSA ultrasonic debridement device and requiring bovine pericardial patch reinforcement/repair of the fragile annulus.
4. Chordal sparing mitral valve replacement [27 mm bioprosthesis].
5. Modified left atrial maze [encompass clamp, posterior wall isolation] and left atrial appendage exclusion [35 mm device].
6. Placement of temporary atrial and ventricular pacing wires.
7. Transesophageal echocardiography.
8. Exploration of lower extremity for vein, none was found.
Intraoperative ETHAN, 02/07/2025:
CONCLUSIONS
Moderate mitral stenosis, mild mitral regurgitation, severe MAC, severe
leaflets calcifications. Annulus measures 27 x 28 mm.
Normal left ventricular size and systolic function.
Mild left atrial enlargement.
Normal right ventricular size and function.
The ascending aorta has atheroma less than 5 mm and mild calcifications.
POST OPERATIVE FINDINGS
Status post mitral valve replacement with 27 mm Mi mitral valve, status post
debridement mitral annulus, the valve is well-seated, no perivalvular leak,
leaflets are functioning well. No intra valvular regurgitation, mean gradient
is 4 mmHg.
Status post CABG x 1, the left ventricle is vigorously inder, EF 60 to
65%, no regional wall motion abnormalities seen.
Status post left atrial appendage exclusion, the clip is well-seated, no flow
seen through the left atrial appendage remnant.
Normal right ventricular size and function.
Mild tricuspid regurgitation. No aortic valve abnormalities.
Physical Exam
Vital Signs/Labs
Vital Signs
Temp Pulse Resp BP Pulse Ox
98.8 F 60 20 136/59 98
02/10/25 07:50 02/10/25 07:45 02/10/25 07:50 02/10/25 07:40 02/10/25 08:36
02/09/25 02/10/25 02/11/25
06:59 06:59 06:59
Actual Weight 163 lb 12.855 oz 164 lb 7.437 oz
02/10/25 03:10
PT 20.1 Sec (11.4-14.6) H 02/10/25 03:10
PT Cancelled 02/10/25 03:10
INR 1.69 02/10/25 03:10
INR Cancelled 02/10/25 03:10
APTT 58.6 Sec (23.4-35.0) H 02/10/25 09:51
Magnesium 2.8 mg/dl (1.6-2.3) H 02/10/25 03:10
Physical Exam
Constitutional: No acute distress
Cardiovascular: Rhythm & rate is regular and Pedal edema is absent
Respiratory: Respiratory effort normal and Crackles Present (bibasilar)
Data Reviewed
-
Date of Service: February 10, 2025
Medical Decision Making: Review of Case with other Provider (CTPA will need ppm, do we need DAPT and OAT and CVICU nursing Julieta)
[2025-02-10] MEDS: DUONEB INH ×3 (11:36→19:31)
--- NOTE | 2025-02-10 11:46 | PTCARENOTE ---
V paced on monitor and VSS; pt continues with nausea CT PA updated; assessment unchanged; pt resting comfortably in chair.
[2025-02-10] MEDS: ZOFRAN 4 MG IV ×2 (11:53→12:42)
--- NOTE | 2025-02-10 11:54 | PTCARENOTE ---
Pt with continued nausea; pt requesting more 'nausea medications'; updated CT PA, per CT PA pt with prolonged QT on monitor; per CTPA ok to give a dose of IV Zofran; medication given.
[2025-02-10] MEDS: BENADRYL 25 MG IV (12:41)
[2025-02-10 12:51] LABS: Glucose - Point of Care 140 mg/dl (70-99)
--- NOTE | 2025-02-10 12:51 | PTCARENOTE ---
A-fib on monitor and VSS; pt continues to with nausea, CT PA updated; Lopressor, Zofran, and Benadryl IV given; Magnesium given; awaiting Amiodarone from pharmacy.
--- NOTE | 2025-02-10 13:06 | PTCARENOTE ---
Amiodarone bolus and drip started per CT PA order; pt educated multiple times on sternal precautions due to excess coughing.
[2025-02-10] MEDS: FERRLECIT 110 MG IV (15:00)
[2025-02-10] MEDS: TYLENOL PO (15:01)
[2025-02-10 16:02] LABS: Hematocrit 29.7 % (37.0-47.0); Hemoglobin 9.8 g/dL (12.0-16.0)
--- NOTE | 2025-02-10 16:17 | PTCARENOTE ---
A-fib on monitor and VSS; pt continues to refuse food states 'I am too nauseas to eat anything.'; CT PA updated; Amiodarone and Heparin infusing see flow sheet for details; assessment unchanged.
[2025-02-10 17:06] LABS: Glucose - Point of Care 176 mg/dl (70-99)
[2025-02-10] MEDS: LOPRESSOR 5 MG IV (17:31)
[2025-02-10] MEDS: PULMICORT INH (19:32)
[2025-02-10] MEDS: OFIRMEV 100 IV (19:57)
[2025-02-10] MEDS: TIGAN 200 MG IM (20:00)
[2025-02-10 20:08] LABS: APTT 93.5 Sec (23.4-35.0)
[2025-02-10 23:53] LABS: Glucose - Point of Care 129 mg/dl (70-99)
[2025-02-10] MEDS: LANTUS 0.2 UNITS SC (23:53)
[2025-02-10] MEDS: LIPITOR 80 MG PO (23:53)
[2025-02-10] MEDS: NSS IV (23:54)
[2025-02-10] MEDS: NEURONTIN 100 MG PO (23:54)
[2025-02-11] VITALS (29 sets, daily range): BP systolic 67–125; BP diastolic 28–87; BMI 33.9
--- NOTE | 2025-02-11 00:30 | PTCARENOTE ---
pt converted from A-fib to 100% v paced, softer bps, assessment unchanged
[2025-02-11 02:22] LABS: Hematocrit 28.7 % (37.0-47.0); Hemoglobin 9.6 g/dL (12.0-16.0); Mean Corp Hgb Conc. 33.4 g/dL (33.0-37.0); Mean Corpuscular Hgb 30.2 pg (27.0-31.0); Mean Corpuscular Volume 90.3 fL (81.0-99.0); Mean Platelet Volume 9.5 fL (7.4-10.4); Platelet Count 169 10^3/uL (130-400); Red Blood Cell Count 3.18 10^6/uL (4.20-5.40); Red Cell Dist. Width 14.3 % (11.5-14.5)
--- NOTE | 2025-02-11 02:27 | W.PN.CT ---
Addendum entered and electronically signed by Long Hernández MD 02/11/25 10:58:
I saw and examined the patient.
The PA's note was reviewed and I agree with the note.
Comment:
Consult EP for PPM, Junctional in the 40s, symptomatic requiring pacing. Eliquis currently on hold.
Original Note:
Today's Communication / Plan
-
Afib with RVR up to 160 = AMIO load *4, maintain on amiodarone drip, Lopressor (Multiple doses), Magnesium repletion, converted to MANAGER APPOINTMENT paced overnight�
Maintain pacer wires; = plan for permeant pacer (V wires working= setting at 72 back up)�
Continue heparin drip with PTT goal of 60-90; Plan to transition to Eliquis �
Diuresis = 2 mg of Bumex�
Nausea = (Concern for prolong QTC); gave patient Tigan, patient already has scopolamine patch�
NPO for pacer�
Current Meds (ASA, Lipitor, Bumex, Gabapentin) (Plavix on hold)�
Assessment / Plan
-
s/p MVR(27mm Mitris), CABGx1(BAKER to LAD), GUSTAVO CASIANO POD#[address] Hernández
Post op ETHAN: valve is well-seated, no perivalvular leak, leaflets are functioning well. No intra valvular regurgitation, mean gradient is 4 mmHg. LVEF 60 to 65%, no regional wall motion abnormalities seen.
Status post left atrial appendage exclusion, the clip is well-seated, no flow seen through the left atrial appendage remnant.
-CAD
-HTN
-HLD
-HFpEF
-asthma
-T2DM
-hypothyroid
-anxiety/depression
-acute blood loss anemia
-post op afib with rvr
Subjective
Procedure
02/07/25 s/p MVR(27mm Mitris), CABGx1(BAKER to LAD), GUSTAVO CASIANO by Dr. Hernández
-
Date of Service: February 11, 2025
Objective Data
-
Lab Results
02/11/25 02:05
PT 20.1 Sec (11.4-14.6) H 02/10/25 03:10
PT Cancelled 02/10/25 03:10
INR 1.69 02/10/25 03:10
INR Cancelled 02/10/25 03:10
APTT 93.5 Sec (23.4-35.0) H 02/10/25 19:49
Vital Signs
Vital Signs
Temp Pulse Resp BP Pulse Ox
97.6 F 104 20 156/109 100
02/10/25 20:00 02/10/25 20:10 02/10/25 20:00 02/10/25 20:00 02/10/25 20:00
CT Intake/Output/Weight
02/10/25 02/10/25 02/11/25
06:59 18:59 06:59
Intake Total 143.9 / 764.9 206 / 368.4 162.4 / 368.4
Output Total 0 / 5 3000 / 3950 950 / 3950
Balance -846.1 / -1320.1 -2794 / -3581.6 -787.6 / -3581.6
SaO2: 100
[2025-02-11 02:28] LABS: APTT 67.8 Sec (23.4-35.0)
[2025-02-11 02:36] LABS: Blood Urea Nitrogen 28 mg/dl (7-17); Calcium 7.9 mg/dl (8.4-10.2); Carbon Dioxide 29 mmol/L (22-30); Chloride 100 mmol/L (98-107); Estimated Creatinine Clearance 46 ml/min; Glucose 86 mg/dl (70-99); Magnesium 2.4 mg/dl (1.6-2.3); Potassium 3.9 mmol/L (3.5-5.1); Sodium 136 mmol/L (135-145); eGFR > 60.00
--- NOTE | 2025-02-11 04:15 | PTCARENOTE ---
routine labs obtained, 100% v paced per tele monitor, assessment unchanged.
[2025-02-11] MEDS: SYNTHROID 88 MCG PO (06:04)
[2025-02-11] MEDS: TYLENOL 1000 MG PO ×2 (06:04→21:58)
[2025-02-11] MEDS: DUONEB 3 ML INH ×3 (07:17→19:57)
[2025-02-11] MEDS: PULMICORT 0.5 MG INH ×2 (07:17→20:08)
--- NOTE | 2025-02-11 07:44 | W.PN.CD ---
Today's Communication / Plan
-
- Plan for PPm today
Impression / Plan
-
Impression/Plan: 64 y/o female with HLD, asthma, NIDDM with peripheral neuropathy, CAD and severe MS with severe pulmonary hypertension admitted for elective MVR and 1V CABG.
#Severe, calcific mitral stenosis
-Chronic, progressive.
-TTE gradient = 8 mmHg, ETHAN gradient 5 mmHg (under sedation).
-Now s/p chordal sparing SMVR (#27 Mcmahan Mitris Reslia, SN: [id number]) with mitral annulus pericardial patch (SN: [id number]) and LAAE (#35 Atriclip, SN: [id number]) with Dr. Hernández, 02/07/2025.
-started on warfarin
-rhythm had been junctional then afib with RVR requiring amiodarone, temp wire now pacing.
-Plan for PPMtoday
- Stop Heparin
#PAF:
-recurrent, rapid
-IV AMiodarone stopped due to nausea transition to p.o.
- C2 V score:5 (Age, CAD, hypertension, diabetes, female) recommend anticoagulation
#CAD
-Chronic, progressive.
-Cath films reviewed.
-S/P BAKER to LAD.
-Moderate RCA disease, easily treated with PCI if deemed clinically necessary.
-Post operative management as above.
-Given need for anticoagulation, would recommend holding clopidogrel and continue just aspirin and anticoagulant
-High dose, high potency statin.
#HLD
-Chronic, stable.
-Continue atorvastatin 40 mg daily when taking PO.
-Goal LDL < 55.
#NIDDM
-Chronic, controlled.
-HbA1c = 6.7%.
-Insulin gtt per protocol.
Subjective/Interval History:
On heparin for AFib.
DATA:
MVR/CABG, 02/07/2025:
Procedure(s) Performed:
1. Standard sternotomy with aortic and bicaval cannulation.
2. Coronary artery bypass grafting x 1 [BAKER in situ to LAD] with internal mammary artery harvesting.
3. Extensive debridement of mitral annular calcification using the CUSA ultrasonic debridement device and requiring bovine pericardial patch reinforcement/repair of the fragile annulus.
4. Chordal sparing mitral valve replacement [27 mm bioprosthesis].
5. Modified left atrial maze [encompass clamp, posterior wall isolation] and left atrial appendage exclusion [35 mm device].
6. Placement of temporary atrial and ventricular pacing wires.
7. Transesophageal echocardiography.
8. Exploration of lower extremity for vein, none was found.
Intraoperative ETHAN, 02/07/2025:
CONCLUSIONS
Moderate mitral stenosis, mild mitral regurgitation, severe MAC, severe
leaflets calcifications. Annulus measures 27 x 28 mm.
Normal left ventricular size and systolic function.
Mild left atrial enlargement.
Normal right ventricular size and function.
The ascending aorta has atheroma less than 5 mm and mild calcifications.
POST OPERATIVE FINDINGS
Status post mitral valve replacement with 27 mm Mi mitral valve, status post
debridement mitral annulus, the valve is well-seated, no perivalvular leak,
leaflets are functioning well. No intra valvular regurgitation, mean gradient
is 4 mmHg.
Status post CABG x 1, the left ventricle is vigorously inder, EF 60 to
65%, no regional wall motion abnormalities seen.
Status post left atrial appendage exclusion, the clip is well-seated, no flow
seen through the left atrial appendage remnant.
Normal right ventricular size and function.
Mild tricuspid regurgitation. No aortic valve abnormalities.
Physical Exam
Vital Signs/Labs
Vital Signs
Temp Pulse Resp BP Pulse Ox
97.9 F 72 16 78/55 97
02/11/25 04:00 02/11/25 07:20 02/11/25 07:20 02/11/25 06:00 02/11/25 07:20
02/10/25 02/11/2525
06:59 06:59 06:59
Actual Weight 74.6 kg 70.9 kg
02/11/25 02:05
02/11/25 02:05
PT 20.1 Sec (11.4-14.6) H 02/10/25 03:10
PT Cancelled 02/10/25 03:10
INR 1.69 02/10/25 03:10
INR Cancelled 02/10/25 03:10
APTT 67.8 Sec (23.4-35.0) H 02/11/25 02:05
Magnesium 2.4 mg/dl (1.6-2.3) H 02/11/25 02:05
Physical Exam
Constitutional: No acute distress and Comfortable
EENT: Anicteric and Moist mucous membranes
Cardiovascular: Rhythm & rate is regular, Pedal edema is absent and JVD pressure is normal
Respiratory: Respiratory effort normal and Lungs clear to auscul.
GI: Soft, Non tender and Normal bowel sounds
Neuro/Psych: Alert, Oriented and AO x 3
Data Reviewed
-
Date of Service: February 11, 2025
Medical Decision Making: Reviewed Test Results, Test Interpretation and Review of Case with other Provider
EKG: Tracing Personally Visualized and interpreted
Echo: Report Reviewed by me
Labs: Labs Reviewed by me
Old Records: Reviewed
Critical Care Time (in minutes): 35
[2025-02-11] MEDS: NEURONTIN 100 MG PO ×2 (08:28→21:49)
[2025-02-11] MEDS: SENOKOT-S 1 TABLET PO ×2 (08:28→19:26)
[2025-02-11] MEDS: THERAGRAN 1 TABLET PO (08:29)
[2025-02-11] MEDS: PROTONIX 40 MG PO (08:29)
[2025-02-11] MEDS: MAGNESIUM OXIDE 500 MG PO (08:29)
[2025-02-11] MEDS: LIDOCAINE 4% PATCH 2 PATCH TOPICAL (08:29)
[2025-02-11] MEDS: LOW STRENGTH ASPIRIN 81 MG PO (08:29)
[2025-02-11] MEDS: BACTROBAN 2% OINTMENT 1 APPLIC NASAL (08:30)
--- NOTE | 2025-02-11 08:35 | PN.DE.MGMTRT ---
Insulin Management
- -
02/11/2025: Diabetes Management Follow up
Patient admitted 02/08 for scheduled CABG. PMH: T2DM, hypothyroid, HLD, HTN, Depression, Obesity, Asthma, Pulmonary HTN, Severe Mitral Valve calcification. Prior to admission was taking Trulicity .75 once weekly, Basaglar 20 units @ hs and metformin
1000 BID. A1C on admission 6.7%. Cr today 1.0, eGFR >60.
States she has had diabetes 30 years, originally took oral medication, sees primary provider for diabetes care.
Patient is awake alert and oriented sitting up in bed able to discuss diabetes care.
POD #4 s/p CABG, MVR. Transitioned off Glycemic protocol on 02/10 to Lantus 20 units, metformin 1000 mg BID and Farxiga 10 mg.
Currently NPO for PPM today. Metformin and Farxiga on HOLD while NPO.
Glucose stable and in range. 02/10 premeal 89 to 97, HS 129, Venous @2am 86.
Will make no changes to current regimen: Lantus 20 units @ HS. Cont Farxiga and Metformin 1000mg BID post PPM placement
Discussed with nurse. Will cont to follow
Diabetes History
- -
Type of Diabetes: 2 requiring insulin
Pre-Admission Diabetes Regimen
02/11/25
02:05
Creatinine 1.0
Lab Results
Hemoglobin A1c 6.7 % (4.0-5.6) H 01/31/25 12:18
Insulin Pump Settings
IP Diabetes Regimen
02/10/25 02/10/25 02/10/25
09:50 12:50 17:05
Glucose
POC Glucose 139 H 140 H 176 H
02/10/25 02/11/25
23:51 02:05
Glucose 86
POC Glucose 129 H
Patient Education
[2025-02-11] MEDS: FARXIGA PO (09:13)
[2025-02-11] MEDS: GLUCOPHAGE PO (09:13)
--- NOTE | 2025-02-11 09:16 | PTCARENOTE ---
assumed care of pt from previous shift RN, paced rhythm on tele, + peripheral pulses, no edema. Lungs diminished, pox 96% on 2L NC. Coughing and deep breathing encouraged. +BS, NPO maintained. Pt bathed w CHG pre PPM, purewick changed. Pt denies
pain at present. Plan of care reviewed and questions encouraged.
[2025-02-11 10:17] LABS: APTT 70.4 Sec (23.4-35.0)
--- NOTE | 2025-02-11 11:02 | CM ---
Chart reviewed. Patient going for a PPM today. Patient is independent of ADLS, lives with her and son in a [address], [address], has a SPC at home if needed. Plan is for the patient to return home with Emil DYER CM to follow
--- NOTE | 2025-02-11 12:10 | PTCARENOTE ---
report given to EPS pre PPM. Heparin gtt placed on hold as ordered.
[2025-02-11 12:39] LABS: Glucose - Point of Care 90 mg/dl (70-99)
[2025-02-11] MEDS: TYLENOL PO (15:01)
--- NOTE | 2025-02-11 15:01 | PTCARENOTE ---
pt sent for PPM
[2025-02-11] MEDS: NSS IV (15:02)
[2025-02-11] MEDS: DUONEB INH (15:26)
--- NOTE | 2025-02-11 16:32 | ITS.CL.PACE ---
Press Operator Automatic - Pacemaker Implant
Pacemaker Implant
Procedure Report:
Conduction system pacing Permanent Pacemaker Placement:
Ms. Vu is a 64 yrs old woman with with HLD, asthma, NIDDM with peripheral neuropathy, CAD and severe MS with severe pulmonary hypertension admitted for elective MVR and 1V CABG with severe bradycardia and junctional escape rhythm s/p
epicardial paced who had paroxysmal vs post op atrial fibrillation and is in need for a PPM.
Indications:
Severe bradycardia with intermittent complete heart block
Date of the Procedure:
02/11/25
Pre-Operative Diagnosis: Severe bradycardia with intermittent complete heart block
Post-Operative Diagnosis: Severe bradycardia with intermittent complete heart block
Procedure Performed: Conduction system pacing permanent pacemaker
Performing Physician:
Kacey Gould MD
Anesthesia:
See anesthesia report.
Detailed Description of the Procedure:
The patient was identified using hospital identification and informed consent obtained for the procedure. The risks were explained to the patient and the family including, but not limited to: Bleeding, infection, arrhythmia, stroke,
vascular/cardiac/lung puncture, surgery, pacemaker dependency/device malfunction. All questions were answered.
A surgical pause was performed in accordance with hospital regulations. Anesthesia service provided sedation as reported separately. Antibiotics administered IV for risk of bacterial colonization. After obtaining informed and written consent, the
patient was brought to the electrophysiology laboratory.
The initial rhythm was epicardial paced rhythm.
The procedure site was meticulously prepared with surgical scrub and allowed to dry with no pooling. Sterile draping was applied to cover the procedure site. The image intensifier was draped with sterile bag and positioned over the patient.
A surgical pause and time out was performed immediately prior to the procedure with review of her medical history, recent labs, allergies and medications with site of procedure identified and consent noted in the chart. Antibiotics pre operatively
given. All team members concurred.
The left infraclavicular region was prepped and draped in the usual sterile fashion. Local anesthesia was administered subcutaneously using 1% lidocaine / Bupivacaine. The left cephalic vein cutdown was performed with an incision at the
delto-pectoral groove, and vascular sheath was introduced for lead access.
A subcutaneous pocket was created with blunt dissection and use of electrocautery. Hemostasis was excellent.
The guide wire was then advanced to the RA and was advanced to the RV. The preformed curved long hemostatic peel away HIS sheath was advanced into the RV cavity. A left bundle pacing wire was advanced into the sheath to the tip with ventricular
signals noted with unipolar manner.
The HIS location was identified under guidance of the fluoroscopy and the pacing wire signals. The sheath with the pacing lead was moved deeper into the RV cavity on the septum at a more inferior and distal to the HIS signals.
There was sheath approximation confirmed on SARAH view. Once adequate signals were noted on the electrograms of the pacing lead in the sheath with W pattern signals on the RV septum, the lead was advanced and clockwise turns were done under
fluoroscopic guidance. The septum was engaged and the lead was paced intermittently after every 2-3 turns. The Impedance of the lead was measured that remained stable around 700 Ohm. The lead was paced and septal pacing was noted. The sheath was
placed again to the septum and the lead was advanced 2-3 turns with pacing with each advancement. The ventricular capture was monitored throughout and the captures gradually changed from RV pacing to non-selective pacing to LBB pacing with R wave on
V1 morphology. �
The long guiding sheath was cut and removed from the RV without change in lead position, impedance, sensing, or capture. The lead was sutured to the underlying pectoralis fascia with 2-0 Ethibond stitches.
Then the attention was given to atrial lead. Atrial active lead was placed in the RA and into the RAA. There were excellent impedance and thresholds.
The leads were attached to the pulse generator in standard configuration with acceptable sensing and threshold parameters. The pocket was irrigated with antibiotic solution; the pocket was inspected with no active bleeding noted. The device and the
leads were placed in the pocket.
The pocket was rinsed with antibiotics soaked solution.
Deep subcutaneous tissues were closed with three layers of 2-0 V loc sutures; and the dermis was reopposed using a running 4-0 Monocryl subcuticular suture.
Sponge counts / sharp counts were appropriate.
Procedure End:
The procedure was tolerated well. Aquacel bandaged was applied.
Estimated Blood loss:
5 cc
Specimens Removed:
No cultures and no specimens were obtained. No intraoperative pathology was identified.
Urine output:
None
Packs / Drains/ Tubes:
None
Instrument / Sponge Count Correct:
Yes
Flouro time:
4.5min / 16.29 mGy
Complications of the Procedure:
None
Condition of Patient at Time of Transfer:
Hemodynamically stable with no neurological or vascular compromise.
Device information:�
Generator: Riskonnect; Model: W1DR01; Serial # [id number]�
����������� RA pacing lead: Medtronic; Model: 5076-45; Serial # [id number]
����������� Measured data on the RV lead was sensing of 1.5 mV, impedance of 513 ohms and threshold of 0.5 V at 0.4ms. �
����������� RV LBB pacing lead: Medtronic; Model: 3830-69; Serial # [id number]
����������� Measured data on the RV lead was sensing of 17mV, impedance of 741 ohms and threshold of 0.75 V at 0.4ms�
PROGRAMMING PARAMETERS:�
Jesse parameter settings were AAIR <=> DDDR 60-130 �
����������� Paced AV interval: 180ms
����������� Sensed AV interval: 150 ms.
����������� Rate Adaptive A-V Interval: on
����������� Mode switch ON
�
Summary:
Successful implantation of MRI compatible dual chamber conduction system pacing permanent pacemaker.
Results/Recommendations:
-Please follow up CXR�
1. Please provide patient with adequate pain control�
Instructions to be given to patient:�
- Please follow up with [facility] at [address] [place] [address] ([phone]) to get your wound checked in 2 weeks of your discharge. Then follow with
- Do not wet incision site until after it is evaluated at cardiology clinic. No baths or showers until then. Sponge baths / showers are OK but dab dry the dressing after it is wet.�
- Allow 'steri strips' to fall off on their own�
- Do not lift left elbow above shoulder, particularly with sudden jerking movements, for 1 month�
- Do not lift anything weighing more than 5 pounds with the left arm for 1 month�
- If you notice any fevers, shortness of breath, lightheadedness, chest pain, or worsening swelling in the wound site, please contact the arrhythmia clinic, contact your rn peritoneal dialysis, or present to the hospital for evaluation.�
Kacey Gould MD
Electrophysiology
[2025-02-11 16:41] LABS: Glucose - Point of Care 84 mg/dl (70-99)
[2025-02-11] MEDS: NEURONTIN PO (17:12)
--- NOTE | 2025-02-11 17:13 | PTCARENOTE ---
received pt s/p PPM placement, V paced on tele, immobilizer in place, VSS. Pt denies pain.
[2025-02-11 18:05] LABS: Glucose - Point of Care 96 mg/dl (70-99)
--- NOTE | 2025-02-11 18:09 | PTCARENOTE ---
received pt s/p PPM, VSS, denies pain, CXR completed as ordered.
[2025-02-11] MEDS: MAGNESIUM OXIDE PO (19:08)
--- NOTE | 2025-02-11 20:00 | PTCARENOTE ---
Received pt from [facility]. pt resting comfortably in chair. pt is AAOx4, denies pain. pt is assisted to commode and back to bed without difficulty. pt has been 100% A paced s/p PPM. pt currently in Afib, starting at 1945, ongoing low BPs, pt is
asymptomatic. calcium gtt ordered followed by amio bolus. heart sounds audible, radial and DP pulses palpable, no edema noted, temp epicardial VA wires insulated, PPM set to DDDR 60-130. lungs diminished throughout, crackles noted in b/l posterior
bases, IS encouraged. +BS x4 quadrants, abdomen soft, round, non tender, pt denies nausea. pt voiding dark yellow urine without difficulty. surgical sites maintained. right IJ cordis and PIV maintained. call vogel within reach. will continue to
monitor.
[2025-02-11] MEDS: KCL 20 MEQ PO (20:03)
[2025-02-11] MEDS: CALCIUM GLUCONATE 290 MG IV (20:08)
[2025-02-11] MEDS: LIPITOR 80 MG PO (21:49)
[2025-02-11] MEDS: CORDARONE 103 MG IV (21:50)
[2025-02-11] MEDS: LANTUS 0.2 UNITS SC (21:54)
[2025-02-11 21:57] LABS: Glucose - Point of Care 320 mg/dl (70-99)
[2025-02-11 22:01] LABS: Glucose - Point of Care 332 mg/dl (70-99)
[2025-02-11] MEDS: ANCEF 5 IV (22:31)
--- NOTE | 2025-02-11 23:50 | PTCARENOTE ---
Pt resting comfortably in bed. Afib on monitor, BP improving, pt remains asymptomatic see vital signs. amio gtts ordered. call vogel within reach. will continue to monitor.
[2025-02-12] VITALS (13 sets, daily range): BP systolic 71–125; BP diastolic 43–92; PULSE 68; O2SAT 94–97; BMI 34.1
[2025-02-12] MEDS: CORDARONE 518 MG IV (00:15)
[2025-02-12] MEDS: XANAX 0.25 MG PO (00:29)
[2025-02-12 01:56] LABS: Hematocrit 26.9 % (37.0-47.0); Hemoglobin 9.2 g/dL (12.0-16.0); Mean Corp Hgb Conc. 34.2 g/dL (33.0-37.0); Mean Corpuscular Hgb 30.8 pg (27.0-31.0); Mean Platelet Volume 9.5 fL (7.4-10.4); Platelet Count 168 10^3/uL (130-400); Red Blood Cell Count 2.99 10^6/uL (4.20-5.40); Red Cell Dist. Width 14.4 % (11.5-14.5); White Blood Cell Count 10.8 10^3/uL (4.8-10.8)
[2025-02-12 02:05] LABS: INR 1.78; PT 20.9 Sec (11.4-14.6)
[2025-02-12 02:56] LABS: Blood Urea Nitrogen 41 mg/dl (7-17); Calcium 8.8 mg/dl (8.4-10.2); Carbon Dioxide 28 mmol/L (22-30); Chloride 100 mmol/L (98-107); Estimated Creatinine Clearance 35 ml/min; Glucose 216 mg/dl (70-99); Magnesium 2.3 mg/dl (1.6-2.3); Potassium 4.5 mmol/L (3.5-5.1); Sodium 133 mmol/L (135-145); eGFR 45.35
--- NOTE | 2025-02-12 04:00 | PTCARENOTE ---
Pt assessment unchanged. Afib on monitor. BP continues to improve. SPB has been > 100. Xanax given for anxiety and insomnia. amio gtt still infusing. call vogel within reach. will continue to monitor.
--- NOTE | 2025-02-12 04:58 | W.PN.CT ---
Today's Communication / Plan
-
Plan:
-No major issues overnight. Hemodynamically and neurologically intact
-Underwent PPM placement yesterday 02/11/25 for postop symptomatica junctional rhythm and a-fib with rvr
-PPM pocket is C/D/I with pressure dressing and arm sling applied, cont. Abx with Ancef
-Went back into a-fib with RVR (140's) last night @ 1950, gave amiodarone bolus and started amiodarone gtt. Converted to NSR 60 bpm @ 0530 this AM, a paced
-D/C cordis after completion of gtt
-Resume Oral Anticoagulation, had previously been on Coumadin, INR this AM is 1.78. Will consider DOAC/NOAC
-BP has been soft postop, hence BB has been on hold. BP better now, will try low dose BB
-D/C temporary A/V wires
-Monitor hyponatremia, 133, check wt, likely d/t fluid overload
-Diuresis and fluid restriction
-Mag oxide on hold, mg 2.3, was 2.4 yesterday
-Monitor creatine, 1.3, was 0.9-1.1 preop
-Wean off O2
-Encourage use of IS
-OOB into chair/Ambulate
-Likely home tomorrow
Assessment / Plan
-
s/p MVR(27mm Mitris), CABGx1(BAKER to LAD), MAZE, ELAA POD#[address] Hernández, 02/07/25, pod#5
Post op ETHAN: valve is well-seated, no perivalvular leak, leaflets are functioning well. No intra valvular regurgitation, mean gradient is 4 mmHg. LVEF 60 to 65%, no regional wall motion abnormalities seen.
Status post left atrial appendage exclusion, the clip is well-seated, no flow seen through the left atrial appendage remnant.
-CAD
-HTN
-HLD
-HFpEF
-asthma
-T2DM
-hypothyroid
-anxiety/depression
-Acute blood loss anemia (transfused 2u PRBCs)
-Acute postop thrombocytopenia (stable without active bleed)
-Acute postop atelectasis
-Acute postop pulmonary insufficiency
-Acute postop hypovolemia with subsequent hypervolemia
-Acute postop a-fib with RVR
-Acute postop symptomatic junctional rhythm S/P PPM placement, 02/11/25
-Acute postop hyponatremia, 133
-Acute psotop GERARDO
Discussed patient care with: Cardiology, Nursing, Respiratory Therapy, Pharmacy and Care Team
Subjective
Procedure
02/07/25 s/p MVR(27mm Mitris), CABGx1(BAKER to LAD), MAZE, ELAA by Dr. Hernández
-
Date of Service: February 12, 2025
Pt c/o insomnia and anxiety last night, did well with low dose Xanax. Nausea has resolved
Objective Data
-
Lab Results
02/12/25 01:36
02/12/25 01:36
PT 20.9 Sec (11.4-14.6) H 02/12/25 01:36
INR 1.78 02/12/25 01:36
APTT 70.4 Sec (23.4-35.0) H 02/11/25 09:58
Vital Signs
Vital Signs
Temp Pulse Resp BP Pulse Ox
98.8 F 122 16 123/82 97
02/12/25 04:00 02/12/25 04:30 02/12/25 04:00 02/12/25 04:00 02/12/25 04:00
CT Intake/Output/Weight
02/11/25 02/11/25 02/12/25
06:59 18:59 06:59
Intake Total 172.4 / 378.4 57.4 / 57.4
Output Total 1200 / 4200 300 / 2850 2550 / 2850
Balance -1027.6 / -3821.6 -242.6 / -2792.6 -2550 / -2792.6
SaO2: 97 (2L)
Physical Exam
-
General: Awake, Oriented and AOx3
Cardiovascular: Regular rate & rhythm, No Murmurs, No Rub and No Gallop
Respiratory: Decreased Breath Sounds (at bases, otherwise clear)
Sternum: Stable
Incision: Clean, Dry, Intact and Dressing Intact
Extremities: Other (+trace edema)
Data Reviewed
-
Lab Results: Results Reviewed
Medications: Active Meds Reviewed
Chest X-Ray: Report Reviewed and Image Reviewed
ECG: Report Reviewed and Image Reviewed
--- NOTE | 2025-02-12 05:30 | PTCARENOTE ---
Pt converted to NSR/ A paced ~5551
[2025-02-12] MEDS: TYLENOL 1000 MG PO ×3 (06:10→21:26)
[2025-02-12] MEDS: SYNTHROID 88 MCG PO (06:13)
[2025-02-12] MEDS: ANCEF 5 IV (06:13)
--- NOTE | 2025-02-12 08:11 | W.PN.CD ---
Today's Communication / Plan
-
in sinus. continue amiodarone
pacer site is fine
would recommend continued use of coumadin for anticoagulation
pacer is fine . iV heparin can be used
Impression / Plan
-
Impression/Plan: 64 y/o female with HLD, asthma, NIDDM with peripheral neuropathy, CAD and severe MS with severe pulmonary hypertension admitted for elective MVR and 1V CABG.
#s/p chordal sparing MVR (#27 Mcmahan Mitris Reslia, SN: [id number]) with mitral annulus pericardial patch (SN: [id number]) and LAAE (#35 Atriclip, SN: [id number]) with Dr. Hernández, 02/07/2025.
-Indication for srugery:. Severe, calcific mitral stenosis
-started on warfarin
- Pacemaker implant 02/11/25
.
# post pacemaker 02/12/24
- site fine
-
#PAF:
- AV paced
- continue amiodarone
- C2 V score:5 (Age, CAD, hypertension, diabetes, female) recommend anticoagulation
# anticogulation
- patietn with PAF
- history of MS mow with Bioprostheitc MVR
- with prior h/o MS would normally use coumadin. patietn received 02/08/ and 02/09
#CAD
-Chronic, progressive.
-Cath films reviewed.
-S/P BAKER to LAD.
-Moderate RCA disease, easily treated with PCI if deemed clinically necessary.
-Post operative management as above.
-Given need for anticoagulation, would recommend holding clopidogrel and continue just aspirin and anticoagulant
-High dose, high potency statin.
#HLD - atorvastatibn
#NIDDM
-Chronic, controlled.
-HbA1c = 6.7%.
- continue tx
Subjective/Interval History:
On heparin for AFib.
DATA:
MVR/CABG, 02/07/2025:
Procedure(s) Performed:
1. Standard sternotomy with aortic and bicaval cannulation.
2. Coronary artery bypass grafting x 1 [BAKER in situ to LAD] with internal mammary artery harvesting.
3. Extensive debridement of mitral annular calcification using the CUSA ultrasonic debridement device and requiring bovine pericardial patch reinforcement/repair of the fragile annulus.
4. Chordal sparing mitral valve replacement [27 mm bioprosthesis].
5. Modified left atrial maze [encompass clamp, posterior wall isolation] and left atrial appendage exclusion [35 mm device].
6. Placement of temporary atrial and ventricular pacing wires.
7. Transesophageal echocardiography.
8. Exploration of lower extremity for vein, none was found.
Intraoperative ETHAN, 02/07/2025:
CONCLUSIONS
Moderate mitral stenosis, mild mitral regurgitation, severe MAC, severe
leaflets calcifications. Annulus measures 27 x 28 mm.
Normal left ventricular size and systolic function.
Mild left atrial enlargement.
Normal right ventricular size and function.
The ascending aorta has atheroma less than 5 mm and mild calcifications.
POST OPERATIVE FINDINGS
Status post mitral valve replacement with 27 mm Mi mitral valve, status post
debridement mitral annulus, the valve is well-seated, no perivalvular leak,
leaflets are functioning well. No intra valvular regurgitation, mean gradient
is 4 mmHg.
Status post CABG x 1, the left ventricle is vigorously inder, EF 60 to
65%, no regional wall motion abnormalities seen.
Status post left atrial appendage exclusion, the clip is well-seated, no flow
seen through the left atrial appendage remnant.
Normal right ventricular size and function.
Mild tricuspid regurgitation. No aortic valve abnormalities.
Physical Exam
Vital Signs/Labs
Vital Signs
Temp Pulse Resp BP Pulse Ox
98.8 F 122 16 123/82 97
02/12/25 04:00 02/12/25 04:30 02/12/25 04:00 02/12/25 04:00 02/12/25 05:00
02/11/25 02/12/25 02/13/25
06:59 06:59 06:59
Actual Weight 70.9 kg 71.5 kg
02/12/25 01:36
02/12/25 01:36
PT 20.9 Sec (11.4-14.6) H 02/12/25 01:36
INR 1.78 02/12/25 01:36
APTT 70.4 Sec (23.4-35.0) H 02/11/25 09:58
Magnesium 2.3 mg/dl (1.6-2.3) 02/12/25 01:36
Physical Exam
Constitutional: No acute distress
Cardiovascular: Rhythm & rate is regular and Other (pacer siteis fine)
Respiratory: Lungs clear to auscul.
GI: Soft
Neuro/Psych: Alert
Data Reviewed
-
Date of Service: February 12, 2025
Medical Decision Making: Reviewed Test Results and Review of Case with other Provider (reviewed with CT RENZO)
Medical Tests (PFT, Pathology etc): Report Reviewed by me
Labs: Labs Reviewed by me
--- NOTE | 2025-02-12 08:21 | PN.DE.MGMTRT ---
Insulin Management
- -
02/12/2025: Diabetes Management Follow up
Patient admitted 02/08 for scheduled CABG. PMH: T2DM, hypothyroid, HLD, HTN, Depression, Obesity, Asthma, Pulmonary HTN, Severe Mitral Valve calcification. Prior to admission was taking Trulicity .75 once weekly, Basaglar 20 units @ hs and metformin
1000 BID. A1C on admission 6.7%. Cr today 1.3, eGFR 45.35.
States she has had diabetes 30 years, originally took oral medication, sees primary provider for diabetes care.
Patient is awake alert and oriented, out of bed in chair,able to discuss diabetes care.
POD #5 s/p CABG, MVR. Transitioned off Glycemic protocol on 02/10 to Lantus 20 units, metformin 1000 mg BID and Farxiga 10 mg.
S/P PPM 02/11.
CR 1.3, eGFR 45.35. Will continue to hold metformin today. Glucose stable but up to 332 @ HS. Received 20 units lantus @ HS, farxiga 10 mg daily
Will make no changes to current regimen: Lantus 20 units @ HS. Cont Farxiga.
Discussed with Lili BUCHANAN 22$ per month, patient agreeable.
Discussed with nurse. Will cont to follow
Diabetes History
- -
Type of Diabetes: 2 requiring insulin
Pre-Admission Diabetes Regimen
02/12/25
01:36
Creatinine 1.3 H
Lab Results
Hemoglobin A1c 6.7 % (4.0-5.6) H 01/31/25 12:18
Insulin Pump Settings
IP Diabetes Regimen
02/11/25 02/11/25 02/11/25
12:38 16:37 18:04
Glucose
POC Glucose 90 84 96
02/11/25 02/11/25 02/12/25
21:56 22:00 01:36
Glucose 216 H
POC Glucose 320 H 332 H
Patient Education
[2025-02-12] MEDS: PULMICORT 0.5 MG INH ×2 (08:24→19:00)
[2025-02-12] MEDS: DUONEB 3 ML INH ×3 (08:24→19:01)
[2025-02-12] MEDS: LOPRESSOR 12.5 MG PO ×2 (09:02→20:22)
[2025-02-12] MEDS: LOW STRENGTH ASPIRIN 81 MG PO (09:02)
[2025-02-12] MEDS: NEURONTIN 100 MG PO ×3 (09:02→21:26)
[2025-02-12] MEDS: LIDOCAINE 4% PATCH 2 PATCH TOPICAL (09:02)
[2025-02-12] MEDS: THERAGRAN 1 TABLET PO (09:03)
[2025-02-12] MEDS: PROTONIX 40 MG PO (09:03)
[2025-02-12] MEDS: SENOKOT-S 1 TABLET PO ×2 (09:03→20:22)
[2025-02-12] MEDS: FARXIGA PO (09:03)
--- NOTE | 2025-02-12 09:10 | PTCARENOTE ---
Addendum entered by Kofi Bradford RN 02/12/25 10:32:
Midsternal incision approximated and [employer].
Original Note:
Assumed care of patient at 0700. Pt is awake, alert, and oriented. No complaints of pain at this time. Pt remains SR with occasional V pacing. HR 64. BP 125/50 MAP 72. Pt with AV wires insulated. Pulse oximetry 93% on 2L nasal cannula. Pt tolerating
PO diet. Voiding without issue. Midsternal incision with post-surgical dressing in place. Left upper chest PPM site dressing intact. Right IJ cordis intact. Pt initially on Amiodarone gtt at 0.5mg/min, now off per provider order.
[2025-02-12 09:29] LABS: Glucose - Point of Care 176 mg/dl (70-99)
--- NOTE | 2025-02-12 09:30 | W.PN.ANS.POP ---
Anesthesia Post Operative
- Anesthesia Post Op Note
Vital Signs Stable-See Nursing Note: Yes
Airway Patent: Yes
Adequate Pain Control: Yes
Change in Mental Status: No
Current Postoperative Nausea & Vomiting: No
Anesthesia Complications: No
General Anesthetic Recall: No
Unplanned Admission: No
Post Op Hydration Adequate: Yes
- -
Pt awake and alert, resting comfortably with no anesthesia related c/o at time of post op visits.
[2025-02-12] MEDS: NOVOLOG FLEXPEN-LOW RESISTANCE 1 UNITS SC (10:13)
--- NOTE | 2025-02-12 10:49 | CM ---
Addendum entered by Jamilah Atkins RN 02/12/25 12:25:
Patient is agreeable
Original Note:
Pricing on Farxiga through the patient's [facility], ID# [id number], is $22 for a 30 day supply.
Eliquis is $22 for a 30 day supply.
I will place a free 30 day coupon in the patient's red discharge folder.
[2025-02-12] MEDS: ELIQUIS 5 MG PO ×2 (11:18→20:21)
--- NOTE | 2025-02-12 11:30 | PTCARENOTE ---
2 view x-ray done. Pt walked with cardiac rehab. Pt reports feelings of lightheadedness when ambulating. When back to chair BP 71/45 MAP 55. Once settled back in bed BP 107/[address] TERE, Dagmar, made aware. Pt remains on 2L nasal cannula,
pulse oximetry 96%. On room air pulse oximetry 87%.
[2025-02-12] MEDS: NOVOLOG FLEXPEN-LOW RESISTANCE 5 UNITS SC (12:59)
[2025-02-12 13:01] LABS: Glucose - Point of Care 357 mg/dl (70-99)
[2025-02-12] MEDS: NSS IV (13:02)
[2025-02-12] MEDS: FARXIGA 10 MG PO (13:47)
[2025-02-12] MEDS: DUONEB INH (15:25)
--- NOTE | 2025-02-12 16:45 | PTCARENOTE ---
AV wire cut by CT TERE, Dagmar. Pt remains SR with HR 60's. BP 105/72 MAP 83. Pulse oximetry 96% on room air.
[2025-02-12] MEDS: PACERONE 200 MG PO ×2 (17:07→21:26)
[2025-02-12 17:41] LABS: Glucose - Point of Care 248 mg/dl (70-99)
[2025-02-12] MEDS: NOVOLOG FLEXPEN-LOW RESISTANCE 2 UNITS SC (17:41)
[2025-02-12] MEDS: LIPITOR 80 MG PO (21:25)
[2025-02-12] MEDS: LANTUS 0.2 UNITS SC (21:25)
[2025-02-12 21:26] LABS: Glucose - Point of Care 236 mg/dl (70-99)
--- NOTE | 2025-02-12 21:49 | PTCARENOTE ---
ax3. A-paced 2 liters to maintains sats. lungs are clear. afebrile. midsternal /leg incisions intact. dressings at ct sites c/d/i. left cordis with kvo intact. ambulated to br without incident. pt was happy she was not dizzy.
--- NOTE | 2025-02-12 23:33 | PTCARENOTE ---
ax3 ambulated pt in room again without dizziness. bp stable after lopressor- a- paced/sinus
[2025-02-13] VITALS (15 sets, daily range): BP systolic 91–127; BP diastolic 43–107; PULSE 66; O2SAT 96–99; BMI 34.1
--- NOTE | 2025-02-13 01:53 | PTCARENOTE ---
remains on 2 liters oxygen- 85 on room air 93-95 on 2 liters
[2025-02-13 03:56] LABS: Hematocrit 24.7 % (37.0-47.0); Hemoglobin 8.3 g/dL (12.0-16.0); Mean Corp Hgb Conc. 33.6 g/dL (33.0-37.0); Mean Corpuscular Hgb 31.2 pg (27.0-31.0); Mean Corpuscular Volume 92.9 fL (81.0-99.0); Mean Platelet Volume 9.2 fL (7.4-10.4); Platelet Count 170 10^3/uL (130-400); Red Blood Cell Count 2.66 10^6/uL (4.20-5.40); Red Cell Dist. Width 14.7 % (11.5-14.5); White Blood Cell Count 11.2 10^3/uL (4.8-10.8)
[2025-02-13 04:27] LABS: Blood Urea Nitrogen 35 mg/dl (7-17); Calcium 8.3 mg/dl (8.4-10.2); Carbon Dioxide 30 mmol/L (22-30); Chloride 103 mmol/L (98-107); Estimated Creatinine Clearance 38 ml/min; Glucose 129 mg/dl (70-99); Potassium 4.2 mmol/L (3.5-5.1); Sodium 137 mmol/L (135-145); eGFR 49.92
[2025-02-13] MEDS: TYLENOL 1000 MG PO ×3 (06:13→22:56)
[2025-02-13] MEDS: SYNTHROID 88 MCG PO (06:13)
[2025-02-13] MEDS: DULCOLAX 10 MG PO (06:57)
[2025-02-13] MEDS: DUONEB 3 ML INH (07:18)
[2025-02-13] MEDS: PULMICORT 0.5 MG INH (07:19)
--- NOTE | 2025-02-13 07:35 | PN.DE.MGMTRT ---
Insulin Management
- -
02/13/2025: Diabetes Management Follow up
Patient admitted 02/08 for scheduled CABG. PMH: T2DM, hypothyroid, HLD, HTN, Depression, Obesity, Asthma, Pulmonary HTN, Severe Mitral Valve calcification. Prior to admission was taking Trulicity .75 once weekly, Basaglar 20 units @ hs and metformin
1000 BID. A1C on admission 6.7%. Cr today 1.3, eGFR 45.35.
States she has had diabetes 30 years, originally took oral medication, sees primary provider for diabetes care.
Patient is awake alert and oriented, out of bed in chair,able to discuss diabetes care.
POD #6 s/p CABG, MVR. Transitioned off Glycemic protocol on 02/10 to Lantus 20 units, metformin 1000 mg BID and Farxiga 10 mg.
S/P PPM /.
CR 1.2, eGFR 49.92. Will restart metformin today. Glucose stable but up to 357 pre lunch (AM Farxiga not given until later). Received 20 units lantus @ HS, fasting glucose 129 today.
Will continue current regimen: Lantus 20 units @ HS. Cont Farxiga. add metformin.
Discussed with Lili BUCHANAN 22$ per month, patient agreeable.
Discussed with nurse. Will cont to follow
Diabetes History
- -
Type of Diabetes: 2 requiring insulin
Pre-Admission Diabetes Regimen
02/13/25
03:46
Creatinine 1.2 H
Lab Results
Hemoglobin A1c 6.7 % (4.0-5.6) H 01/31/25 12:18
Insulin Pump Settings
IP Diabetes Regimen
02/12/25 02/12/25 02/12/25
09:22 12:57 17:40
Glucose
POC Glucose 176 H 357 H 248 H
02/12/25 02/13/25
21:24 03:46
Glucose 129 H
POC Glucose 236 H
Meal type: Breakfast
Amount consumed: 100%
Patient Education
--- NOTE | 2025-02-13 07:56 | W.PN.CT ---
Today's Communication / Plan
-
-pod #6
-no issues overnight
-a-paced 60s. Would consider restarting BB not that has pace, however, may be limitied by BP
-wean off O2 - pOx 94% on 2L
-2v CXR with small L pleural effusion - follow
-Eliquis started 02/12 for paf
-encourage OOB, ambulate
-possible d/c soon
Assessment / Plan
-
s/p MVR(27mm Mitris), CABGx1(BAKER to LAD), GUSTAVO CASIANO POD#[address] Hernández, 02/07/25, pod#6
Post op ETHAN: valve is well-seated, no perivalvular leak, leaflets are functioning well. No intra valvular regurgitation, mean gradient is 4 mmHg. LVEF 60 to 65%, no regional wall motion abnormalities seen.
Status post left atrial appendage exclusion, the clip is well-seated, no flow seen through the left atrial appendage remnant.
-CAD
-HTN
-HLD
-HFpEF
-asthma
-T2DM
-hypothyroid
-anxiety/depression
-Acute blood loss anemia (transfused 2u PRBCs)
-Acute postop thrombocytopenia (stable without active bleed)
-Acute postop atelectasis
-Acute postop pulmonary insufficiency
-Acute postop hypovolemia with subsequent hypervolemia
-Acute postop a-fib with RVR
-Acute postop symptomatic junctional rhythm S/P PPM placement, 02/11/25
-Acute postop hyponatremia, 133
-Acute psotop GERARDO
Discussed patient care with: Nursing and Care Team
Subjective
Procedure
02/07/25 s/p MVR(27mm Mitris), CABGx1(BAKER to LAD), GUSTAVO CASIANO by Dr. Hernández
-
Date of Service: February 13, 2025
Objective Data
-
Lab Results
02/13/25 03:46
02/13/25 03:46
PT 20.9 Sec (11.4-14.6) H 02/12/25 01:36
INR 1.78 02/12/25 01:36
APTT 70.4 Sec (23.4-35.0) H 02/11/25 09:58
Vital Signs
Vital Signs
Temp Pulse Resp BP Pulse Ox
98.5 F 80 16 103/50 94
02/13/25 04:05 02/13/25 07:21 02/13/25 07:21 02/13/25 03:22 02/12/25 22:07
CT Intake/Output/Weight
02/12/25 02/13/25 02/13/25
18:59 06:59 18:59
Intake Total 140.1 / 700.1 560 / 700.1
Output Total 900 / 900
Balance -759.9 / -199.9 560 / -199.9
SaO2: 94
Physical Exam
-
General: Awake and AOx3
Cardiovascular: No Murmurs and No Rub
Respiratory: Decreased Breath Sounds
Sternum: Stable
Incision: Clean, Dry and Intact
Extremities: No Edema (1+ DPs b/l)
Abdomen: soft, nontender, nondistended, +bowel sounds, no nausea or pain
Data Reviewed
-
Lab Results: Results Reviewed
Medications: Active Meds Reviewed
Chest X-Ray: Report Reviewed and Image Reviewed
ECG: Report Reviewed and Image Reviewed
--- NOTE | 2025-02-13 08:47 | W.PN.CD ---
Today's Communication / Plan
-
Continue routine post-op care
Continue Eliquis and Amiodarone for pAF
PPM functioning normally
Impression / Plan
-
Impression/Plan: 64 y/o female with HLD, asthma, NIDDM with peripheral neuropathy, CAD and severe MS with severe pulmonary hypertension admitted for elective MVR and 1V CABG.
#s/p chordal sparing MVR (#27 Mcmahan Mitris Reslia) with mitral annulus pericardial patch and LAAE (#35 Atriclip) with Dr. Hernández, 02/07/2025.
-Indication for surgery: Severe, calcific mitral stenosis
-Post-op ETHAN: mean gradient 4mmHg, no paravalvular leak
-Needed PPM post-op on 02/11/25
-Continue Eliquis for pAF
#post pacemaker 02/12/24
-site fine
-Intermittently paced at 60bpm
#PAF:
- Now alternating between sinus rhythm and AV paced
- continue amiodarone
- C2V score:5 (Age, CAD, hypertension, diabetes, female)
- Continue eliquis 5mg BID for AC
#CAD
-Chronic, progressive.
-S/P BAKER to LAD.
-Moderate RCA disease, easily treated with PCI if deemed clinically necessary.
-Post operative management as above.
-Given need for anticoagulation, would recommend holding clopidogrel and continue just aspirin and anticoagulant
-High dose, high potency statin.
#HLD - atorvastatin
#NIDDM
-Chronic, controlled.
-HbA1c = 6.7%.
- continue tx
Subjective/Interval History:
She feels great. Will be transferred to IVU this AM.
DATA:
MVR/CABG, 02/07/2025:
Procedure(s) Performed:
1. Standard sternotomy with aortic and bicaval cannulation.
2. Coronary artery bypass grafting x 1 [BAKER in situ to LAD] with internal mammary artery harvesting.
3. Extensive debridement of mitral annular calcification using the CUSA ultrasonic debridement device and requiring bovine pericardial patch reinforcement/repair of the fragile annulus.
4. Chordal sparing mitral valve replacement [27 mm bioprosthesis].
5. Modified left atrial maze [encompass clamp, posterior wall isolation] and left atrial appendage exclusion [35 mm device].
6. Placement of temporary atrial and ventricular pacing wires.
7. Transesophageal echocardiography.
8. Exploration of lower extremity for vein, none was found.
Intraoperative ETHAN, 02/07/2025:
CONCLUSIONS
Moderate mitral stenosis, mild mitral regurgitation, severe MAC, severe
leaflets calcifications. Annulus measures 27 x 28 mm.
Normal left ventricular size and systolic function.
Mild left atrial enlargement.
Normal right ventricular size and function.
The ascending aorta has atheroma less than 5 mm and mild calcifications.
POST OPERATIVE FINDINGS
Status post mitral valve replacement with 27 mm Mi mitral valve, status post
debridement mitral annulus, the valve is well-seated, no perivalvular leak,
leaflets are functioning well. No intra valvular regurgitation, mean gradient
is 4 mmHg.
Status post CABG x 1, the left ventricle is vigorously inder, EF 60 to
65%, no regional wall motion abnormalities seen.
Status post left atrial appendage exclusion, the clip is well-seated, no flow
seen through the left atrial appendage remnant.
Normal right ventricular size and function.
Mild tricuspid regurgitation. No aortic valve abnormalities.
Physical Exam
Vital Signs/Labs
Vital Signs
Temp Pulse Resp BP Pulse Ox
98.1 F 63 16 103/48 100
02/13/25 08:42 02/13/25 08:43 02/13/25 08:42 02/13/25 08:43 02/13/25 08:43
02/12/25 02/13/25 02/14/25
06:59 06:59 06:59
Actual Weight 157 lb 10.088 oz 157 lb 3.033 oz
02/13/25 03:46
02/13/25 03:46
PT 20.9 Sec (11.4-14.6) H 02/12/25 01:36
INR 1.78 02/12/25 01:36
APTT 70.4 Sec (23.4-35.0) H 02/11/25 09:58
Magnesium 2.0 mg/dl (1.6-2.3) 02/13/25 03:46
Physical Exam
Constitutional: No acute distress and Comfortable
Cardiovascular: Rhythm & rate is regular, Pedal edema is absent, S1S2 is normal and Murmur/rub/gallop absent
Respiratory: Respiratory effort normal and Crackles Present (bilateral bases)
Neuro/Psych: AO x 3
Data Reviewed
-
Date of Service: February 13, 2025
Medical Decision Making: Reviewed Test Results, Independent Historian Assessment, Test Interpretation and Review of Case with other Provider
EKG: Tracing Personally Visualized and interpreted
Echo: Report Reviewed by me
X-Ray/CT/US/MRI/NUC/PET: Report Reviewed by me
Labs: Labs Reviewed by me
[2025-02-13 08:53] LABS: Glucose - Point of Care 155 mg/dl (70-99)
[2025-02-13] MEDS: NOVOLOG FLEXPEN-LOW RESISTANCE 1 UNITS SC (08:53)
--- NOTE | 2025-02-13 09:00 | PTCARENOTE ---
Received pt from PEDIATRIC SOCIAL WORKER. pt OOB in chair. NSR on the monitor with occ A pacing. HR in the 60's. Surgical sites intact--see worklist for further details. NSS infusing through Right Cordis at 10 mL/hr. Denies chest pain or SOB. SpO2 100% on 2L NC.
No complaints of lightheadness/dizziness when ambulating. Pt informed to call RN for assitance OOB. Call vogel within reach.
[2025-02-13] MEDS: PROTONIX 40 MG PO (09:20)
[2025-02-13] MEDS: FARXIGA 10 MG PO (09:20)
[2025-02-13] MEDS: LOPRESSOR PO (09:20)
[2025-02-13] MEDS: ELIQUIS 5 MG PO ×2 (09:21→20:19)
[2025-02-13] MEDS: THERAGRAN 1 TABLET PO (09:21)
[2025-02-13] MEDS: GLUCOPHAGE 1000 MG PO ×2 (09:21→16:53)
[2025-02-13] MEDS: SENOKOT-S 1 TABLET PO ×2 (09:21→20:20)
[2025-02-13] MEDS: NEURONTIN 100 MG PO ×3 (09:21→22:56)
[2025-02-13] MEDS: PACERONE 200 MG PO ×3 (09:22→22:56)
[2025-02-13] MEDS: LIDOCAINE 4% PATCH TOPICAL (09:22)
[2025-02-13] MEDS: TESSALON PERLES 100 MG PO (09:22)
[2025-02-13] MEDS: LOW STRENGTH ASPIRIN 81 MG PO (09:22)
[2025-02-13] MEDS: CELEXA 40 MG PO (09:52)
--- NOTE | 2025-02-13 11:17 | PTCARENOTE ---
CV [employer]ENEWALS REPRESENTATIVE attempting to wean pt off 2L O2 NC. Pt dipping to 81-85% on RA. Pt placed back on 2L O2 NC and sating 97-100%. Pt w/ dry non-prod. cough. Pt using IS approp. and gets up to 1000. Diane RENEWALS REPRESENTATIVE made aware.
[2025-02-13 12:24] LABS: Glucose - Point of Care 200 mg/dl (70-99)
[2025-02-13] MEDS: NSS IV (12:47)
[2025-02-13] MEDS: NOVOLOG FLEXPEN-LOW RESISTANCE 2 UNITS SC (13:15)
--- NOTE | 2025-02-13 13:51 | CM ---
Reviewed chart. Mrs. Vu was transferred to IVU. Met with Mrs. Vu to review discharge plans. She states she is feeling well, She states she ambulated in the hallway today. We reviewed [facility] with [facility].
Referral sent and [facility] has accept the referral. Prior to admission she resides with her spouse and son in a one story home with four steps to enter. Prior to admission she was independent with ambulation and adls. She has a
single point cane at home. Her spouse and son will be home to assist in her care if needed. Will continue to watch for home 02 needs. Medical work-up in progress. The discharge plan is to return home with her spouse and son with [facility] when medically stable.
[2025-02-13] MEDS: MILK OF MAGNESIA 30 ML PO (14:53)
[2025-02-13] MEDS: LASIX 40 MG IV (15:39)
[2025-02-13 16:50] LABS: Glucose - Point of Care 133 mg/dl (70-99)
[2025-02-13] MEDS: NOVOLOG FLEXPEN-LOW RESISTANCE SC (16:53)
[2025-02-13] MEDS: SYMBICORT 160/4.5 MCG INHALER 2 PUFF INH (17:23)
[2025-02-13] MEDS: LOPRESSOR 12.5 MG PO (20:19)
[2025-02-13 22:47] LABS: Glucose - Point of Care 152 mg/dl (70-99)
[2025-02-13] MEDS: LANTUS 0.2 UNITS SC (22:55)
[2025-02-13] MEDS: LIPITOR 80 MG PO (22:56)
[2025-02-13] MEDS: LOPRESSOR 2.5 MG IV (23:25)
[2025-02-14] VITALS (9 sets, daily range): BP systolic 92–128; BP diastolic 59–80; BMI 34.0
--- NOTE | 2025-02-14 01:02 | PTCARENOTE ---
Received patient at change of shift. SR on the monitor, HR in the 70s. Patient converted to Afib, HR in the 110s. RENZO Spears notified, IV Lopressor administered as per RENZO. CT surgery incision sites BONE GRINDER, intact. No complaints from pt at this
time, call vogel within reach.
[2025-02-14 04:48] LABS: Blood Urea Nitrogen 34 mg/dl (7-17); Calcium 8.7 mg/dl (8.4-10.2); Carbon Dioxide 29 mmol/L (22-30); Chloride 103 mmol/L (98-107); Estimated Creatinine Clearance 41 ml/min; Glucose 101 mg/dl (70-99); Magnesium 2.2 mg/dl (1.6-2.3); Potassium 4.8 mmol/L (3.5-5.1); Sodium 138 mmol/L (135-145); eGFR 55.42
[2025-02-14 04:54] LABS: Hematocrit 28.6 % (37.0-47.0); Hemoglobin 9.8 g/dL (12.0-16.0); Mean Corp Hgb Conc. 34.3 g/dL (33.0-37.0); Mean Corpuscular Hgb 31.9 pg (27.0-31.0); Mean Corpuscular Volume 93.2 fL (81.0-99.0); Mean Platelet Volume 9.4 fL (7.4-10.4); Platelet Count 218 10^3/uL (130-400); Red Blood Cell Count 3.07 10^6/uL (4.20-5.40); Red Cell Dist. Width 14.8 % (11.5-14.5); White Blood Cell Count 16.3 10^3/uL (4.8-10.8)
[2025-02-14] MEDS: TYLENOL 1000 MG PO ×3 (06:21→22:18)
[2025-02-14] MEDS: SYNTHROID 88 MCG PO (06:21)
--- NOTE | 2025-02-14 07:53 | W.PN.CT ---
Today's Communication / Plan
-
-pod #7
-went into a-fib with RVR last night, tried iv Lopressor without success. Continue po Lopressor, Amio, and Eliquis
-Mg citrate ordered since no BM postop
-increase ambulation
-will need home O2
-possible d/c home soon
Assessment / Plan
-
s/p MVR(27mm Mitris), CABGx1(BAKER to LAD), GUSTAVO CASIANO POD#[address] Hernández, 02/07/25, pod#7
Post op ETHAN: valve is well-seated, no perivalvular leak, leaflets are functioning well. No intra valvular regurgitation, mean gradient is 4 mmHg. LVEF 60 to 65%, no regional wall motion abnormalities seen.
Status post left atrial appendage exclusion, the clip is well-seated, no flow seen through the left atrial appendage remnant.
-CAD
-HTN
-HLD
-HFpEF
-asthma
-T2DM
-hypothyroid
-anxiety/depression
-Acute blood loss anemia (transfused 2u PRBCs)
-Acute postop thrombocytopenia (stable without active bleed)
-Acute postop atelectasis
-Acute postop pulmonary insufficiency
-Acute postop hypovolemia with subsequent hypervolemia
-Acute postop a-fib with RVR
-Acute postop symptomatic junctional rhythm S/P PPM placement, 02/11/25
-Acute postop hyponatremia, 133
-Acute psotop GERARDO
Discussed patient care with: Nursing and Care Team
Subjective
Procedure
02/07/25 s/p MVR(27mm Mitris), CABGx1(BAKER to LAD), GUSTAVO CASIANO by Dr. Hernández
-
Date of Service: February 14, 2025
Objective Data
-
Lab Results
02/14/25 03:58
06/05/25 03:58
PT 20.9 Sec (11.4-14.6) H 02/12/25 01:36
INR 1.78 02/12/25 01:36
APTT 70.4 Sec (23.4-35.0) H 02/11/25 09:58
Vital Signs
Vital Signs
Temp Pulse Resp BP Pulse Ox
98.6 F 101 20 95/56 95
02/14/25 07:49 02/14/25 02:00 02/14/25 07:49 02/13/25 23:25 02/14/25 07:49
CT Intake/Output/Weight
02/13/25 02/14/25 02/14/25
18:59 06:59 18:59
Intake Total 640 / 640
Output Total 700 / 700
Balance 640 / -60 -700 / -60
SaO2: 95
Physical Exam
-
General: Awake and AOx3
Cardiovascular: No Murmurs and No Rub
Respiratory: Decreased Breath Sounds
Sternum: Stable
Incision: Clean, Dry and Intact
Abdomen: soft, nontender, nondistended, +bowel sounds, no nausea or pain
Extremities: No Edema (1+ DPs b/l)
Data Reviewed
-
Lab Results: Results Reviewed
Medications: Active Meds Reviewed
Chest X-Ray: Report Reviewed and Image Reviewed
ECG: Report Reviewed and Image Reviewed
[2025-02-14] MEDS: LIDOCAINE 4% PATCH TOPICAL (07:55)
[2025-02-14] MEDS: LOPRESSOR PO ×2 (08:02→10:35)
[2025-02-14] MEDS: FARXIGA 10 MG PO (08:02)
[2025-02-14] MEDS: PACERONE 200 MG PO ×3 (08:02→22:18)
[2025-02-14] MEDS: NEURONTIN 100 MG PO ×3 (08:02→22:18)
[2025-02-14] MEDS: CELEXA 40 MG PO (08:02)
[2025-02-14] MEDS: LOW STRENGTH ASPIRIN 81 MG PO (08:02)
[2025-02-14] MEDS: CITROMA 300 ML PO (08:02)
[2025-02-14] MEDS: SENOKOT-S 1 TABLET PO (08:02)
[2025-02-14] MEDS: THERAGRAN 1 TABLET PO (08:02)
[2025-02-14] MEDS: PROTONIX 40 MG PO (08:02)
[2025-02-14] MEDS: ELIQUIS 5 MG PO ×2 (08:02→20:54)
[2025-02-14 08:11] LABS: Glucose - Point of Care 103 mg/dl (70-99)
[2025-02-14] MEDS: NOVOLOG FLEXPEN-LOW RESISTANCE SC (08:11)
[2025-02-14] MEDS: GLUCOPHAGE 1000 MG PO ×2 (08:11→17:02)
[2025-02-14] MEDS: SYMBICORT 160/4.5 MCG INHALER 2 PUFF INH ×2 (08:15→19:37)
--- NOTE | 2025-02-14 10:17 | W.PN.CD ---
Today's Communication / Plan
-
- Increase Metoprolol to 25 mg BID, Start Digoxin 250 mcg qd, and continue Amiodarone 200 mg TID
Impression / Plan
-
Impression/Plan: 64 y/o female with HLD, asthma, NIDDM with peripheral neuropathy, CAD and severe MS with severe pulmonary hypertension admitted for elective MVR and 1V CABG.
#s/p chordal sparing MVR (#27 Mcmahan Mitris Reslia) with mitral annulus pericardial patch and LAAE (#35 Atriclip) with Dr. Hernández, 02/07/2025.
-Indication for surgery: Severe, calcific mitral stenosis
-Post-op ETHAN: mean gradient 4mmHg, no paravalvular leak
-Needed PPM post-op on 02/11/25
-Continue Eliquis for pAF
#post pacemaker 02/12/24
-site fine
-Intermittently paced at 60bpm
#PAF:
- Now with AF with RVR
- Increase Metoprolol to 25 mg BID, Start Digoxin 250 mcg qd, and continue Amiodarone 200 mg TID
- Was alternating between sinus rhythm and AV paced
- continue amiodarone
- C2V score:5 (Age, CAD, hypertension, diabetes, female)
- Continue eliquis 5mg BID for AC
#CAD
-Chronic, progressive.
-S/P BAKER to LAD.
-Moderate RCA disease, easily treated with PCI if deemed clinically necessary.
-Post operative management as above.
-Given need for anticoagulation, would recommend holding clopidogrel and continue just aspirin and anticoagulant
-High dose, high potency statin.
#HLD - atorvastatin
#NIDDM
-Chronic, controlled.
-HbA1c = 6.7%.
- continue tx
Subjective/Interval History:
She feels great. Will be transferred to IVU this AM.
DATA:
MVR/CABG, 02/07/2025:
Procedure(s) Performed:
1. Standard sternotomy with aortic and bicaval cannulation.
2. Coronary artery bypass grafting x 1 [BKAER in situ to LAD] with internal mammary artery harvesting.
3. Extensive debridement of mitral annular calcification using the CUSA ultrasonic debridement device and requiring bovine pericardial patch reinforcement/repair of the fragile annulus.
4. Chordal sparing mitral valve replacement [27 mm bioprosthesis].
5. Modified left atrial maze [encompass clamp, posterior wall isolation] and left atrial appendage exclusion [35 mm device].
6. Placement of temporary atrial and ventricular pacing wires.
7. Transesophageal echocardiography.
8. Exploration of lower extremity for vein, none was found.
Intraoperative ETHAN, 02/07/2025:
CONCLUSIONS
Moderate mitral stenosis, mild mitral regurgitation, severe MAC, severe
leaflets calcifications. Annulus measures 27 x 28 mm.
Normal left ventricular size and systolic function.
Mild left atrial enlargement.
Normal right ventricular size and function.
The ascending aorta has atheroma less than 5 mm and mild calcifications.
POST OPERATIVE FINDINGS
Status post mitral valve replacement with 27 mm Mi mitral valve, status post
debridement mitral annulus, the valve is well-seated, no perivalvular leak,
leaflets are functioning well. No intra valvular regurgitation, mean gradient
is 4 mmHg.
Status post CABG x 1, the left ventricle is vigorously inder, EF 60 to
65%, no regional wall motion abnormalities seen.
Status post left atrial appendage exclusion, the clip is well-seated, no flow
seen through the left atrial appendage remnant.
Normal right ventricular size and function.
Mild tricuspid regurgitation. No aortic valve abnormalities.
Physical Exam
Vital Signs/Labs
Vital Signs
Temp Pulse Resp BP Pulse Ox
98.6 F 102 18 92/67 95
02/14/25 07:49 02/14/25 08:16 02/14/25 08:16 02/14/25 07:47 02/14/25 09:00
02/13/25 02/14/25 02/15/25
06:59 06:59 06:59
Actual Weight 71.3 kg 71.2 kg
02/14/25 03:58
02/14/25 03:58
PT 20.9 Sec (11.4-14.6) H 02/12/25 01:36
INR 1.78 02/12/25 01:36
APTT 70.4 Sec (23.4-35.0) H 02/11/25 09:58
Magnesium 2.2 mg/dl (1.6-2.3) 02/14/25 03:58
Physical Exam
Constitutional: No acute distress and Comfortable
EENT: Anicteric and Moist mucous membranes
Cardiovascular: Pedal edema is absent, Rhythm/rate is irregular and JVD present
Respiratory: Respiratory effort normal and Lungs clear to auscul.
GI: Soft, Non tender and Normal bowel sounds
Neuro/Psych: Alert and Oriented
Other: Skin and Cath Site
Data Reviewed
-
Date of Service: February 14, 2025
Medical Decision Making: Reviewed Test Results, Test Interpretation and Review of Case with other Provider
EKG: Tracing Personally Visualized and interpreted (AF with RVR now. )
Echo: Tracing Personally Visualized and interpreted
Labs: Labs Reviewed by me
Old Records: Reviewed
Critical Care Time (in minutes): 35
[2025-02-14] MEDS: LOPRESSOR 25 MG PO ×2 (11:14→20:54)
[2025-02-14] MEDS: LANOXIN 250 MCG IV (11:15)
--- NOTE | 2025-02-14 11:19 | W.PN.UPDATE ---
Update Note
Progress Note Update
We obtained a ambulatory pulse ox test. During ambulation patient saturations dropped to 88% and when placed on 1LNC patient's saturations increased to 92%. Therefore, she qualifies for home oxygen.
--- NOTE | 2025-02-14 11:48 | CM ---
Reviewed chart. Met with Mrs. Vu to review discharge plans. She will need home 02. Telephone call to Ketan at [facility] to make the referral. Send clinical information to [facility]. Reviewed Home 02 with "[facility]. We also reviewed having the [facility]. [facility]. Prior to admission she resides with her spouse and son in a one story home with four steps to enter. Prior to admission she was independent
with ambulation and adls. She has a single point cane at home to use if needed. Her spouse and son will be ome to assist in her care if needed. She has a prescription plan. Medical work-up in progress. The discharge plan is to return home with
her spouse and son [facility] for [facility] 02. when medically stable.
[2025-02-14] MEDS: NSS IV (12:36)
[2025-02-14 12:37] LABS: Glucose - Point of Care 227 mg/dl (70-99)
--- NOTE | 2025-02-14 13:01 | PTCARENOTE ---
Tele- afib. HR 100-120s. Assessment completed as documented. Pt reports ' feeling tired ' today. Pt OOB and walking around room and pt reports 'slight dizziness.' Pt assisted back to bed. BP 111/77. POX 98% 2L NC. [employer] aware. Pt aware to use
call vogel for assistance to walk. Plan of care reviewed w/ pt and verbalizes understanding. Currently in bed; call vogel w/in reach.
[2025-02-14] MEDS: LANOXIN 125 MCG PO (13:34)
[2025-02-14] MEDS: NOVOLOG FLEXPEN-LOW RESISTANCE 2 UNITS SC (13:34)
[2025-02-14] MEDS: DULCOLAX 5 MG PO (13:39)
[2025-02-14] MEDS: NOVOLOG FLEXPEN-LOW RESISTANCE 1 UNITS SC (17:03)
[2025-02-14 17:04] LABS: Glucose - Point of Care 181 mg/dl (70-99)
[2025-02-14] MEDS: SENOKOT-S PO (20:54)
[2025-02-14 21:32] LABS: Glucose - Point of Care 157 mg/dl (70-99)
[2025-02-14] MEDS: LANTUS 0.2 UNITS SC (22:18)
[2025-02-14] MEDS: LIPITOR 80 MG PO (22:19)
[2025-02-15] VITALS (11 sets, daily range): BP systolic 87–114; BP diastolic 49–81; BMI 34.1
--- NOTE | 2025-02-15 01:00 | PTCARENOTE ---
Assumed care on pt at 1900, aaox3, denies pain/discomfort or dizziness. O2 at 2L/min via NC at start of shift, attempted to wean off O2 at bedtime, Pox 84% on RA. Reapplied O2 at 1L/min, Pox 96-98%. Afib on the monitor, HR 80-110's. Pt had a run of
Vtach beats on the monitor @ 0030 while asleep, denied any symptoms stating 'I feel fine, I was asleep until you woke me up'. BP 99/63, HR 96, Pox 96% on 1L O2. will call clerk PA made aware, morning labs ordered, also UA r/t elevated wbc. Call vogel within
reach, pt advised to call for assistance with ambulation. POC ongoing.
[2025-02-15 04:21] LABS: Urine Albumin 1+ (Neg - Trace); Urine Bilirubin Negative (Negative); Urine Character Clear (Clear); Urine Color Yellow; Urine Glucose 4+ (Negative); Urine Ketone Negative (Negative); Urine Leukocyte Negative (Negative); Urine Nitrite Negative (Negative); Urine Occult Blood Negative (Negative); Urine Specific Gravity 1.015 (<1.030); Urine Urobilinogen Negative (Neg - 1+)
[2025-02-15 04:38] LABS: Hematocrit 27.4 % (37.0-47.0); Hemoglobin 8.9 g/dL (12.0-16.0); Mean Corp Hgb Conc. 32.5 g/dL (33.0-37.0); Mean Corpuscular Hgb 31.1 pg (27.0-31.0); Mean Corpuscular Volume 95.8 fL (81.0-99.0); Mean Platelet Volume 9.4 fL (7.4-10.4); Platelet Count 234 10^3/uL (130-400); Red Blood Cell Count 2.86 10^6/uL (4.20-5.40); Red Cell Dist. Width 15.2 % (11.5-14.5); White Blood Cell Count 14.6 10^3/uL (4.8-10.8)
[2025-02-15 04:50] LABS: Blood Urea Nitrogen 27 mg/dl (7-17); Calcium 8.6 mg/dl (8.4-10.2); Carbon Dioxide 34 mmol/L (22-30); Chloride 103 mmol/L (98-107); Estimated Creatinine Clearance 41 ml/min; Glucose 120 mg/dl (70-99); Magnesium 2.4 mg/dl (1.6-2.3); Potassium 5.4 mmol/L (3.5-5.1); Sodium 138 mmol/L (135-145); eGFR 55.42
[2025-02-15 05:05] LABS: Urine Amorphous Seen; Urine Squamous Cell >30 /LPF (Few)
[2025-02-15 05:08] LABS: Urine Bacteria Moderate (Negative)
[2025-02-15] MEDS: SYNTHROID 88 MCG PO (05:22)
[2025-02-15] MEDS: TYLENOL 1000 MG PO ×2 (05:22→15:09)
--- NOTE | 2025-02-15 05:23 | PTCARENOTE ---
train caller PA made aware of pt's lab results this morning, no new orders at this time.
[2025-02-15 06:49] LABS: % Basophils 0.5 % (0-2); % Eosinophils 7.4 % (0-6); % Immature Granulocytes 7.7 % (0-0.5); % Lymphocytes 14.5 % (20.5-51.1); % Monocytes 6.6 % (1.7-9.3); % Neutrophils 63.3 % (42.2-75.2); Absolute Basophils 0.1 10^3/uL (0-0.2); Absolute Eosinophils 1.1 10^3/uL (0-0.7); Absolute Immature Granulocytes 1.1 10^3/uL (0-0.05); Absolute Lymphocytes 2.1 10^3/uL (1.2-3.4); Absolute Neutrophils 9.3 10^3/uL (1.4-6.5); Nucleated Red Blood Cells % 0.4 %
--- NOTE | 2025-02-15 07:57 | W.PN.CT ---
Today's Communication / Plan
-
-pod #8.
-doing well overall, cheerful, wants to go home
-wide complex regular runs noted on telemetry around midnight. Pt is sleeping, asymptomatic. Pt has been in a-fib. ? a-flutter with aberrancy vs NSVT. Continue Lopressor and Amio. nl EF
-wbc has been elevated. Pt is afebrile, denies any cough or urinary sxs. Checked UA
-pt had BM overnight
-will need home O2
-possible d/c home soon
Assessment / Plan
-
s/p MVR(27mm Mitris), CABGx1(BAKER to LAD), GUSTAVO CASIANO POD#[address] Hernández, 02/07/25, pod#8
Post op ETHAN: valve is well-seated, no perivalvular leak, leaflets are functioning well. No intra valvular regurgitation, mean gradient is 4 mmHg. LVEF 60 to 65%, no regional wall motion abnormalities seen.
Status post left atrial appendage exclusion, the clip is well-seated, no flow seen through the left atrial appendage remnant.
-CAD
-HTN
-HLD
-HFpEF
-asthma
-T2DM
-hypothyroid
-anxiety/depression
-Acute blood loss anemia (transfused 2u PRBCs)
-Acute postop thrombocytopenia (stable without active bleed)
-Acute postop atelectasis
-Acute postop pulmonary insufficiency
-Acute postop hypovolemia with subsequent hypervolemia
-Acute postop a-fib with RVR
-Acute postop symptomatic junctional rhythm S/P PPM placement, 02/11/25
-Acute postop hyponatremia, 133
-Acute psotop GERARDO
Discussed patient care with: Nursing and Care Team
Subjective
Procedure
02/07/25 s/p MVR(27mm Mitris), CABGx1(BAKER to LAD), GUSTAVO CASIANO by Dr. Hernández
-
Date of Service: February 15, 2025
Objective Data
-
Lab Results
02/15/25 03:57
PT 20.9 Sec (11.4-14.6) H 02/12/25 01:36
INR 1.78 02/12/25 01:36
APTT 70.4 Sec (23.4-35.0) H 02/11/25 09:58
Vital Signs
Vital Signs
Temp Pulse Resp BP Pulse Ox
97.3 F 118 20 110/81 97
02/15/25 07:03 02/15/25 07:08 02/15/25 07:03 02/15/25 07:08 02/15/25 07:08
CT Intake/Output/Weight
02/14/25 02/15/25 02/15/25
18:59 06:59 18:59
Intake Total 480 / 960 480 / 960
Output Total 400 / 820 420 / 820
Balance 80 / 140 60 / 140
SaO2: 97
Physical Exam
-
General: Awake and AOx3
Cardiovascular: No Murmurs and No Rub
Respiratory: Decreased Breath Sounds
Sternum: Stable
Incision: Clean, Dry and Intact
Abdomen: soft, nontender, nondistended, +bowel sounds, no nausea or pain
Extremities: No Edema (1+ DPs b/l)
Data Reviewed
-
Lab Results: Results Reviewed
Medications: Active Meds Reviewed
Chest X-Ray: Report Reviewed and Image Reviewed
ECG: Report Reviewed and Image Reviewed
[2025-02-15 08:01] LABS: Glucose - Point of Care 122 mg/dl (70-99)
[2025-02-15] MEDS: GLUCOPHAGE 1000 MG PO ×2 (08:23→17:08)
[2025-02-15] MEDS: NOVOLOG FLEXPEN-LOW RESISTANCE SC ×2 (08:23→12:43)
[2025-02-15] MEDS: SYMBICORT 160/4.5 MCG INHALER 2 PUFF INH ×2 (08:24→19:30)
[2025-02-15] MEDS: LOPRESSOR 25 MG PO ×2 (08:24→20:28)
[2025-02-15] MEDS: FARXIGA 10 MG PO (08:24)
[2025-02-15] MEDS: PROTONIX 40 MG PO (08:24)
[2025-02-15] MEDS: NEURONTIN 100 MG PO ×2 (08:24→15:09)
[2025-02-15] MEDS: SENOKOT-S 1 TABLET PO (08:24)
[2025-02-15] MEDS: CELEXA 40 MG PO (08:24)
[2025-02-15] MEDS: THERAGRAN 1 TABLET PO (08:25)
[2025-02-15] MEDS: ELIQUIS 5 MG PO ×2 (08:25→20:28)
[2025-02-15] MEDS: PACERONE 200 MG PO ×2 (08:25→15:09)
[2025-02-15] MEDS: LOW STRENGTH ASPIRIN 81 MG PO (08:25)
--- NOTE | 2025-02-15 08:25 | PN.DE.MGMTRT ---
Insulin Management
- -
02/15/2025: Diabetes Management Follow up
Patient admitted 02/08 for scheduled CABG. PMH: T2DM, hypothyroid, HLD, HTN, Depression, Obesity, Asthma, Pulmonary HTN, Severe Mitral Valve calcification. Prior to admission was taking Trulicity .75 once weekly, Basaglar 20 units @ hs and metformin
1000 BID. A1C on admission 6.7%. Cr today 1.3, eGFR 45.35.
States she has had diabetes 30 years, originally took oral medication, sees primary provider for diabetes care.
Patient is awake alert and oriented, out of bed in chair,able to discuss diabetes care.
POD # 8 s/p CABG, MVR. Transitioned off Glycemic protocol on 02/10 to Lantus 20 units, metformin 1000 mg BID and Farxiga 10 mg.
S/P PPM /. CR 1.1, eGFR 55.42. Received 20 units Lantus @ HS, fasting glucose 122 POC today.
02/14 pre lunch glucose was up to 227, required 2 units of corrective insulin, otherwise, premeal glucose stable yesterday.
Will continue current regimen: Lantus 20 units @ HS, Farxiga 10mg and Metformin 1000 mg BID.
Discussed with Lili BUCHANAN 22$ per month, patient agreeable.
Discussed with nurse. Will cont to follow.
Encouraged pt to get script for CGM from her PCP and provided her my card and office number to call if she needs assistance with application of the device.
Diabetes History
- -
Type of Diabetes: 2 requiring insulin
Pre-Admission Diabetes Regimen
02/15/25
03:57
Creatinine 1.1 H
Lab Results
Hemoglobin A1c 6.7 % (4.0-5.6) H 01/31/25 12:18
Insulin Pump Settings
IP Diabetes Regimen
02/14/25 02/14/25 02/14/25
12:36 17:03 21:31
Glucose
POC Glucose 227 H 181 H 157 H
02/15/25 02/15/25
03:57 07:59
Glucose 120 H
POC Glucose 122 H
Meal type: Dinner
Meal type: Lunch
Meal type: Breakfast
Amount consumed: 100%
Amount consumed: 100%
Amount consumed: 100%
Patient Education
[2025-02-15] MEDS: LIDOCAINE 4% PATCH TOPICAL ×2 (08:26→08:30)
--- NOTE | 2025-02-15 09:38 | CM ---
Reviewed chart. Met with Mrs. Vu to review discharge plans. She states she is feeling well and maybe able to go home soon. She ambulated 175 feet the other day. Her home 02 portable is in the room from [employer] and she will
call them when she gets home to have the concentrator delivered to her home. We reviewed [facility] with [facility]. She is agreeable to [facility]. Prior to admission she resides with her spouse and son in a one story
home with four steps to enter. Prior to admission she was independent with ambulation and adls. She has a single point cane at home to use if needed. Her spouse and son will be home to assist in her care if needed when she goes home. She has a
prescription plan and uses [facility]. Medical work-up in progress. The discharge plan is to return home with her spouse and son with [facility] when medically stable.
--- NOTE | 2025-02-15 09:52 | W.PN.CD ---
Today's Communication / Plan
-
Continue current therapy
After about 10-12 grams of AMIO go to 200 a day
Impression / Plan
-
Background: 64 y/o female with HLD, asthma, NIDDM with peripheral neuropathy, CAD and severe MS with severe pulmonary hypertension admitted for elective MVR and 1V CABG.
#s/p chordal sparing MVR (#27 Mcmahan Mitris Reslia) with mitral annulus pericardial patch and LAAE (#35 Atriclip) with Dr. Hernández, 02/07/2025.
-Indication for surgery: Severe, calcific mitral stenosis
-Post-op ETHAN: mean gradient 4mmHg, no paravalvular leak
-Needed PPM post-op on 02/11/25
-Continue Eliquis for pAF
#post pacemaker 02/12/24
-site fine
-Intermittently paced at 60bpm
#PAF:
- Now with AF with RVR
- Now on Metoprolol to 25 mg BID, Digoxin 125 mcg qd (for 64 yo on Amio that is a good dig dose), and continue Amiodarone 200 mg TID. After about 10-12 grams of AMIO go to 200 a day
- Was alternating between sinus rhythm and AV paced
- C2V score:5 (Age, CAD, hypertension, diabetes, female)
- Continue Eliquis 5mg BID for AC
#CAD
-Chronic, progressive.
-S/P BAKER to LAD.
-Moderate RCA disease, easily treated with PCI if deemed clinically necessary.
-Post operative management as above.
-Given need for anticoagulation, would recommend holding clopidogrel and continue just aspirin and anticoagulant
-High dose, high potency statin.
#HLD - atorvastatin
#NIDDM
-Chronic, controlled.
-HbA1c = 6.7%.
- continue tx
#Post op blood loss anemai, HGb 12 at baseline, now 8.9
Subjective/Interval History:
Feels good.
DATA:
ECHO after surgery 02/14/2025
LVEF 70-75%
Normal right ventricular size and function.
Status-post 27 mm MV replacement (peak/mean 12/4 mmHg)
Aortic sclerosis without stenosis.
No pericardial effusion
MVR/CABG, 02/07/2025:
Procedure(s) Performed:
1. Standard sternotomy with aortic and bicaval cannulation.
2. Coronary artery bypass grafting x 1 [BAKER in situ to LAD] with internal mammary artery harvesting.
3. Extensive debridement of mitral annular calcification using the CUSA ultrasonic debridement device and requiring bovine pericardial patch reinforcement/repair of the fragile annulus.
4. Chordal sparing mitral valve replacement [27 mm bioprosthesis].
5. Modified left atrial maze [encompass clamp, posterior wall isolation] and left atrial appendage exclusion [35 mm device].
6. Placement of temporary atrial and ventricular pacing wires.
7. Transesophageal echocardiography.
8. Exploration of lower extremity for vein, none was found.
Intraoperative ETHAN, 02/07/2025:
CONCLUSIONS
Moderate mitral stenosis, mild mitral regurgitation, severe MAC, severe
leaflets calcifications. Annulus measures 27 x 28 mm.
Normal left ventricular size and systolic function.
Mild left atrial enlargement.
Normal right ventricular size and function.
The ascending aorta has atheroma less than 5 mm and mild calcifications.
POST OPERATIVE FINDINGS
Status post mitral valve replacement with 27 mm Mi mitral valve, status post
debridement mitral annulus, the valve is well-seated, no perivalvular leak,
leaflets are functioning well. No intra valvular regurgitation, mean gradient
is 4 mmHg.
Status post CABG x 1, the left ventricle is vigorously inder, EF 60 to
65%, no regional wall motion abnormalities seen.
Status post left atrial appendage exclusion, the clip is well-seated, no flow
seen through the left atrial appendage remnant.
Normal right ventricular size and function.
Mild tricuspid regurgitation. No aortic valve abnormalities.
Physical Exam
Vital Signs/Labs
Vital Signs
Temp Pulse Resp BP Pulse Ox
97.3 F 82 18 110/81 97
02/15/25 07:03 02/15/25 08:25 02/15/25 08:25 02/15/25 08:24 02/15/25 08:25
02/14/25 02/15/25 02/16/25
06:59 06:59 06:59
Actual Weight 71.2 kg 71.5 kg
02/15/25 03:57
PT 20.9 Sec (11.4-14.6) H 02/12/25 01:36
INR 1.78 02/12/25 01:36
APTT 70.4 Sec (23.4-35.0) H 02/11/25 09:58
Magnesium 2.4 mg/dl (1.6-2.3) H 02/15/25 03:57
Physical Exam
Constitutional: No acute distress
Cardiovascular: Rhythm/rate is irregular, S1S2 is normal and Rub absent
Respiratory: Respiratory effort normal and Lungs clear to auscul. (decreased at bases)
GI: Soft and Distention absent
Neuro/Psych: Alert
Data Reviewed
-
Date of Service: February 15, 2025
--- NOTE | 2025-02-15 10:23 | PTCARENOTE ---
Patient AO x3. Lungs CTA, weaned to on room air, 96%. A-fib in 90's, V-pacing, shorts runs of PVC's. Sternal incision approximated. Chest tube sites scabbed, dressing changed. Incisions on lower extremities approximated, bruised, unchanged. Walking
in the room, gait steady. In chair call vogel in reach
[2025-02-15 12:36] LABS: Blood Urea Nitrogen 25 mg/dl (7-17); Calcium 8.8 mg/dl (8.4-10.2); Carbon Dioxide 32 mmol/L (22-30); Chloride 102 mmol/L (98-107); Estimated Creatinine Clearance 41 ml/min; Glucose 141 mg/dl (70-99); Potassium 5.7 mmol/L (3.5-5.1); Sodium 137 mmol/L (135-145); eGFR 55.42
[2025-02-15] MEDS: LANOXIN 125 MCG PO (13:01)
[2025-02-15] MEDS: SAMSCA 15 MG PO (14:18)
[2025-02-15] MEDS: LR 250 IV (14:20)
[2025-02-15] MEDS: NSS IV (14:20)
[2025-02-15 16:27] LABS: Glucose - Point of Care 171 mg/dl (70-99)
[2025-02-15 16:47] LABS: Blood Urea Nitrogen 27 mg/dl (7-17); Calcium 8.6 mg/dl (8.4-10.2); Carbon Dioxide 31 mmol/L (22-30); Chloride 102 mmol/L (98-107); Estimated Creatinine Clearance 41 ml/min; Glucose 149 mg/dl (70-99); Potassium 5.6 mmol/L (3.5-5.1); Sodium 136 mmol/L (135-145); eGFR 55.42
[2025-02-15] MEDS: NOVOLOG FLEXPEN-LOW RESISTANCE 1 UNITS SC (17:08)
[2025-02-15] MEDS: NOVOLIN R 0.1 UNITS IV (18:39)
--- NOTE | 2025-02-15 18:40 | PTCARENOTE ---
Addendum entered by Kofi Weaver RN 02/15/25 19:25:
POX 88% on room air walking from the bathroom, feeling short of breath placed on 2 liters NC POX 93%, shortness of breath resolved with rest and oxygen.A-fib with runs of tachycardia, AV pacing, HR 113, BP 114/61. IV dextrose and IV insulin given,
pre-blood sugar 170, K 5.6
Original Note:
POX 88% on room air walking from the bathroom, feeling short of breath POX 93% on 2 liters with relief. A-fib with runs of tachycardia and v-paced beats, BP 114/61. IV dextrose and IV insulin given, pre-blood sugar 170, K 5.6
[2025-02-15] MEDS: DEXTROSE 50% SYRINGE 25 GRAMS IV (18:41)
[2025-02-15 18:49] LABS: Glucose - Point of Care 170 mg/dl (70-99)
[2025-02-15 19:39] LABS: Glucose - Point of Care 113 mg/dl (70-99)
[2025-02-15] MEDS: SENOKOT-S PO ×2 (20:28→20:31)
[2025-02-15 20:38] LABS: Glucose - Point of Care 143 mg/dl (70-99)
[2025-02-15 20:45] LABS: Blood Urea Nitrogen 29 mg/dl (7-17); Calcium 8.7 mg/dl (8.4-10.2); Carbon Dioxide 30 mmol/L (22-30); Chloride 103 mmol/L (98-107); Estimated Creatinine Clearance 41 ml/min; Glucose 111 mg/dl (70-99); Potassium 5.4 mmol/L (3.5-5.1); Sodium 134 mmol/L (135-145); eGFR 55.42
[2025-02-15] MEDS: TYLENOL 650 MG PO (20:53)
[2025-02-15 22:34] LABS: Glucose - Point of Care 122 mg/dl (70-99)
[2025-02-15] MEDS: LOKELMA 10 GRAM PO (22:38)
[2025-02-15] MEDS: LANTUS SC (22:56)
[2025-02-15] MEDS: LANTUS 0.1 UNITS SC (22:56)
[2025-02-16] VITALS (9 sets, daily range): BP systolic 92–123; BP diastolic 42–63; BMI 34.1
[2025-02-16] MEDS: TYLENOL PO (00:19)
[2025-02-16] MEDS: LIPITOR 80 MG PO (00:37)
[2025-02-16 00:38] LABS: Glucose - Point of Care 142 mg/dl (70-99)
[2025-02-16] MEDS: PACERONE 200 MG PO ×3 (00:38→16:09)
[2025-02-16] MEDS: NEURONTIN 100 MG PO ×3 (00:38→16:09)
--- NOTE | 2025-02-16 01:36 | PTCARENOTE ---
Pt.'s repeat potassium at 2016 5.4. CV-PA Ed notified, Lokelma ordered and administered. Will check BMP again in AM. Blood sugars stable (HS Lantus dose decreased to 10 units by Ed due to earlier administration of regular IV insulin to treat
potassium). Pt. in A-fib with frequent PVC's at beginning of shift then converted to NSR with A-pacing.
[2025-02-16] MEDS: TYLENOL 1000 MG PO ×2 (04:57→16:09)
[2025-02-16] MEDS: SYNTHROID 88 MCG PO (04:57)
[2025-02-16 05:39] LABS: Blood Urea Nitrogen 28 mg/dl (7-17); Carbon Dioxide 30 mmol/L (22-30); Chloride 106 mmol/L (98-107); Estimated Creatinine Clearance 38 ml/min; Glucose 112 mg/dl (70-99); Magnesium 2.3 mg/dl (1.6-2.3); Potassium 5.7 mmol/L (3.5-5.1); Sodium 139 mmol/L (135-145); eGFR 49.92
--- NOTE | 2025-02-16 06:38 | W.PN.CT ---
Today's Communication / Plan
-
Plan:
-No major issues overnight. Hemodynamically and neurologically intact
-Converted to NSR last night, and currently a-paced @ 60 bpm. On Digoxin, PO Amiodarone and Lopressor
-Monitor K, 5.7, up from 5.4 yesterday
-Will give Lasix and Lokelma and check K again this AM, will likely need Bicarb/Calcium/D50 and Insulin if still rising
-OOB into chair/Ambulate
-Encourage use of IS
-Home in 1-2 days on home O2, currently requiring 2L of supplemental oxygenation
Assessment / Plan
-
s/p MVR(27mm Mitris), CABGx1(BAKER to LAD), MAZE, GUSTAVO POD#[address] Hernández, 02/07/25, pod#9
Post op ETHAN: valve is well-seated, no perivalvular leak, leaflets are functioning well. No intra valvular regurgitation, mean gradient is 4 mmHg. LVEF 60 to 65%, no regional wall motion abnormalities seen.
Status post left atrial appendage exclusion, the clip is well-seated, no flow seen through the left atrial appendage remnant.
-CAD
-HTN
-HLD
-HFpEF
-asthma
-T2DM
-hypothyroid
-anxiety/depression
-Acute blood loss anemia (transfused 2u PRBCs)
-Acute postop thrombocytopenia (stable without active bleed)
-Acute postop atelectasis
-Acute postop pulmonary insufficiency
-Acute postop hypovolemia with subsequent hypervolemia
-Acute postop a-fib with RVR
-Acute postop symptomatic junctional rhythm S/P PPM placement, 02/11/25
-Acute postop hyponatremia, 133
-Acute psotop GERARDO
Discussed patient care with: Cardiology, Nursing, Respiratory Therapy, Pharmacy and Care Team
Subjective
Procedure
02/07/25 s/p MVR(27mm Mitris), CABGx1(BAKER to LAD), MAZE, ELAA by Dr. Hernández
-
Date of Service: February 16, 2025
Pt c/o mild incisional pain, otherwise feels well
Objective Data
-
Lab Results
02/15/25 03:57
PT 20.9 Sec (11.4-14.6) H 02/12/25 01:36
INR 1.78 02/12/25 01:36
APTT 70.4 Sec (23.4-35.0) H 02/11/25 09:58
Vital Signs
Vital Signs
Temp Pulse Resp BP Pulse Ox
98.4 F 63 16 119/49 98
02/16/25 04:43 02/16/25 04:43 02/16/25 04:43 02/16/25 04:43 02/16/25 04:43
CT Intake/Output/Weight
02/15/25 02/15/25 02/16/25
06:59 18:59 06:59
Intake Total 480 / 960 730 / 1210 480 / 1210
Output Total 420 / 820 400 / 800 400 / 800
Balance 60 / 140 330 / 410 80 / 410
SaO2: 98 (2L)
Physical Exam
-
General: Awake, Oriented and AOx3
Cardiovascular: Regular rate & rhythm, No Murmurs and No Gallop
Respiratory: Decreased Breath Sounds (at bases, otherwise clear)
Incision: Clean, Dry, Intact and Dressing Intact
Extremities: Other (+trace edema)
Data Reviewed
-
Lab Results: Results Reviewed
Medications: Active Meds Reviewed
Chest X-Ray: Report Reviewed and Image Reviewed
ECG: Report Reviewed and Image Reviewed
[2025-02-16] MEDS: LOKELMA 10 GRAM PO (06:43)
[2025-02-16] MEDS: LASIX 40 MG IV (06:43)
[2025-02-16] MEDS: SYMBICORT 160/4.5 MCG INHALER 2 PUFF INH (07:36)
[2025-02-16 07:47] LABS: Glucose - Point of Care 114 mg/dl (70-99)
[2025-02-16] MEDS: NOVOLOG FLEXPEN-LOW RESISTANCE SC ×2 (07:47→13:06)
[2025-02-16] MEDS: GLUCOPHAGE 1000 MG PO (07:48)
[2025-02-16] MEDS: LOW STRENGTH ASPIRIN 81 MG PO (07:48)
[2025-02-16] MEDS: CELEXA 40 MG PO (07:48)
[2025-02-16] MEDS: ELIQUIS 5 MG PO (07:48)
[2025-02-16] MEDS: THERAGRAN 1 TABLET PO (07:48)
[2025-02-16] MEDS: LOPRESSOR 25 MG PO (07:48)
[2025-02-16] MEDS: SENOKOT-S 1 TABLET PO (07:48)
[2025-02-16] MEDS: FARXIGA 10 MG PO (07:48)
[2025-02-16] MEDS: PROTONIX 40 MG PO (07:48)
[2025-02-16] MEDS: LIDOCAINE 4% PATCH TOPICAL (08:01)
[2025-02-16] MEDS: KAYEXALATE SUSPENSION 15 GRAMS PO (09:04)
--- NOTE | 2025-02-16 12:06 | W.PN.CD ---
Addendum entered and electronically signed by Black Farias MD 02/16/25 16:11:
Patient seen and examined in collaboration with SURVEY CAD TECHNICIAN; agree with below.
- Telemetry stable, atrial-paced.
- No cardiac complaints.
- Continue amiodarone load as outpatient.
- Continue digoxin.
- Outpatient follow-up with primary Residential Leasing Agent.
Original Note:
Today's Communication / Plan
-
Con't amiodarone loading
check digoxin level
Impression / Plan
-
Background: 64 y/o female with HLD, asthma, NIDDM with peripheral neuropathy, CAD and severe MS with severe pulmonary hypertension admitted for elective MVR and 1V CABG.
#s/p chordal sparing MVR (#27 Mcmahan Mitris [place]) with mitral annulus pericardial patch and LAAE (#35 Atriclip) with Dr. Hernández, 02/07/2025.
-Indication for surgery: Severe, calcific mitral stenosis
-Post-op ETHAN: mean gradient 4mmHg, no paravalvular leak
-Needed PPM post-op on 02/11/25
-Continue Eliquis for pAF
#post pacemaker 02/12/24
-site fine
#PAF:
- AF with RVR now back to APVS
- Now on Metoprolol to 25 mg BID, Digoxin 125 mcg qd , and continue Amiodarone 200 mg TID. After about 10-12 grams of AMIO go to 200 a day
- Was alternating between sinus rhythm and AV paced
- C2V score:5 (Age, CAD, hypertension, diabetes, female)
- Continue Eliquis 5mg BID for AC
#CAD
-Chronic, progressive.
-S/P BAKER to LAD.
-Moderate RCA disease, easily treated with PCI if deemed clinically necessary.
-Post operative management as above.
-Given need for anticoagulation, previous notes recommend holding clopidogrel and continue just aspirin and anticoagulant
-High dose, high potency statin.
#HLD - atorvastatin
#NIDDM
-Chronic, controlled.
-HbA1c = 6.7%.
- continue tx
#Post op blood loss anemai, HGb 12 at baseline, now 8.9
# hyperkalemia:
-treated by CTS
-check digoxin level
Subjective/Interval History:
Denies CP,palps, SOB. No issues with PPM site.
DATA:
ECHO after surgery 02/14/2025
LVEF 70-75%
Normal right ventricular size and function.
Status-post 27 mm MV replacement (peak/mean 12/4 mmHg)
Aortic sclerosis without stenosis.
No pericardial effusion
MVR/CABG, 02/07/2025:
Procedure(s) Performed:
1. Standard sternotomy with aortic and bicaval cannulation.
2. Coronary artery bypass grafting x 1 [BAKER in situ to LAD] with internal mammary artery harvesting.
3. Extensive debridement of mitral annular calcification using the CUSA ultrasonic debridement device and requiring bovine pericardial patch reinforcement/repair of the fragile annulus.
4. Chordal sparing mitral valve replacement [27 mm bioprosthesis].
5. Modified left atrial maze [encompass clamp, posterior wall isolation] and left atrial appendage exclusion [35 mm device].
6. Placement of temporary atrial and ventricular pacing wires.
7. Transesophageal echocardiography.
8. Exploration of lower extremity for vein, none was found.
Intraoperative ETHAN, 02/07/2025:
CONCLUSIONS
Moderate mitral stenosis, mild mitral regurgitation, severe MAC, severe
leaflets calcifications. Annulus measures 27 x 28 mm.
Normal left ventricular size and systolic function.
Mild left atrial enlargement.
Normal right ventricular size and function.
The ascending aorta has atheroma less than 5 mm and mild calcifications.
POST OPERATIVE FINDINGS
Status post mitral valve replacement with 27 mm Mi mitral valve, status post
debridement mitral annulus, the valve is well-seated, no perivalvular leak,
leaflets are functioning well. No intra valvular regurgitation, mean gradient
is 4 mmHg.
Status post CABG x 1, the left ventricle is vigorously inder, EF 60 to
65%, no regional wall motion abnormalities seen.
Status post left atrial appendage exclusion, the clip is well-seated, no flow
seen through the left atrial appendage remnant.
Normal right ventricular size and function.
Mild tricuspid regurgitation. No aortic valve abnormalities.
Physical Exam
Vital Signs/Labs
Vital Signs
Temp Pulse Resp BP Pulse Ox
98.7 F 64 16 117/48 100
02/16/25 07:53 02/16/25 08:00 02/16/25 07:53 02/16/25 07:58 02/16/25 07:53
02/15/25 02/16/25 02/17/25
06:59 06:59 06:59
Actual Weight 71.5 kg 71.4 kg
02/15/25 03:57
PT 20.9 Sec (11.4-14.6) H 02/12/25 01:36
INR 1.78 02/12/25 01:36
APTT 70.4 Sec (23.4-35.0) H 02/11/25 09:58
Magnesium 2.3 mg/dl (1.6-2.3) 02/16/25 04:49
Physical Exam
Constitutional: No acute distress
Cardiovascular: Rhythm & rate is regular and Pedal edema is absent
Respiratory: Respiratory effort normal and Lungs clear to auscul.
Neuro/Psych: AO x 3
Other: Skin (MSI well approximated) and Other (L pectoral PPM site no hematoma, dressing intact)
Data Reviewed
-
Date of Service: February 16, 2025
Labs: Labs Reviewed by me
[2025-02-16] MEDS: LANOXIN 125 MCG PO (12:28)
[2025-02-16 12:55] LABS: Glucose - Point of Care 122 mg/dl (70-99)
[2025-02-16 12:59] LABS: Blood Urea Nitrogen 27 mg/dl (7-17); Carbon Dioxide 34 mmol/L (22-30); Chloride 103 mmol/L (98-107); Digoxin 0.5 ng/ml (0.8-2.0); Estimated Creatinine Clearance 35 ml/min; Glucose 122 mg/dl (70-99); Potassium 5.3 mmol/L (3.5-5.1); Sodium 142 mmol/L (135-145); eGFR 45.35
--- NOTE | 2025-02-16 14:27 | W.DCSUMMARY ---
Discharge Summary
Discharge Data
Date of Admission: 02/07/25
Date of Discharge: 02/16/25
Total time spent discharging patient (in min): 45
-
Pending Results: No
Hospital Course
Primary care physician:
Dr. Pena
Outpatient territory manager general sales:
Dr. Rowell
Inpatient consultants:
CBC, fire chief's aide, Diabetes management specialties operator
Procedures:
1. MVR(27mm Mitris), CABGx1(BAKER to LAD), MAZE, ELAA
Primary Diagnosis:
1. Severe mitral valve annular calcification with severe mitral valve stenosis, multivessel coronary artery disease, symptomatic
Secondary Diagnoses:
1. Acute postop symptomatic junctional rhythm S/P PPM placement, 02/11/25
2. Acute postop a-fib with RVR
3. New onset atrial fibrillation with hemodynamic instability
4. Diabetes mellitus
5. Hypothyroidism
6. Hyperlipidemia
7. Diabetic peripheral neuropathy
8. Obese with a BMI of greater than 30
9. Severe pulmonary hypertension with systolic PA pressures in the high 60s to low 70s
10. Chronic diastolic congestive heart failure
11. Acute post-op hyperkalemia
HPI: 64-year-old female who has been experiencing worsening shortness of breath over the last few months, she underwent left heart cath with valve concomitant multivessel coronary artery disease involving the LAD and RCA. She also had elevated
pulmonary wedge pressures and LVEDP on examination. Her transthoracic echocardiogram demonstrated severe thickening of the mitral valve with heavy calcification. She had a mean gradient of 8 mmHg while awake. There was reduced leaflet excursion
of the valve and obvious evidence of mitral valve stenosis along with severe mitral valve annular calcification. Given her symptoms, she was offered high risk mitral valve replacement as well as CABG and left atrial appendage exclusion and
presented electively on 02/[address] Hernández.
Hospital course:
Patient presented on 02/07 for CABG and mitral valve replacement with Dr. Hernández. Postoperatively she returned to the CVICU on Levophed, dobutamine, Precedex, insulin infusions. Patient was initially in a junctional rhythm and was AV paced. Precedex
was weaned off and she was extubated by 1725 and 750 mL of lactated Ringer's was given. On 02/08 postoperative day 1 due to patient's junctional rhythm amiodarone and beta-blockers were held. Hemoglobin was 7.5 so she received 1 unit of packed red
blood cells and dobutamine was weaned to 1.5. Levo remained 1-2 and she was out of bed into the chair. She was started on 1 mg of Coumadin and 25% albumins. She also had a burst of SVT and was started on amiodarone. On 02/09 postoperative day 2,
dobutamine was weaned off and [place]-Radha catheter was removed. She received 1 unit of packed red blood cells and due to patient ongoing junctional rhythm mediastinal chest tubes and pleural chest tubes were removed and epicardial wires remained in
place. On 02/10 postoperative day 3, patient was in and out of atrial fibrillation with RVR and a slow junctional rhythm when she converts. Electrophysiology was consulted for permanent pacemaker placement and due to possible intervention patient
was on a heparin drip instead of Coumadin. She was diuresed with 2 mg of IV Bumex. On 02/11 postoperative day 4, patient was transitioned off the insulin infusion and started on a oral and subcu regimen. A permanent pacemaker was placed. On 03/01
postoperative day 5, patient remained hemodynamically stable and Eliquis was started and Plavix was discontinued. AMV wires were cut at the skin and right IJ cordis were removed. On 02/13 postoperative day 6 patient was moved to IVU on 2 L nasal
cannula. She was diuresed with 40 mg of IV Lasix and beta-blockers were resumed. Home oxygen requirements were assessed and she qualified. On 02/14 postoperative day 7, patient remained bowel movement free and she was given an aggressive bowel
regimen. Repeat TTE showed a mitral valve peak of 12 and a mean of 4. On 02/15 postoperative day 8 patient finally responded to bowel regimen. However her discharge was canceled due to hypokalemia. She was started on Lokelma, given IV fluids,
insulin/dextrose cocktail. Patient's potassium remained high therefore she was kept an additional night to monitor for hyperkalemia. On 02/16 postoperative day 9, patient received additional intervention for hyperkalemia and finally repeat potassium
was 5.3. It was discussed with Dr. Hernández and she was deemed stable for discharge home with follow-up BMP on Tuesday. Patient expressed understanding.
Home medication changes:
see below
Discharge Plan
-
Patient Disposition: Home (Routine Discharge)
Discharge Diagnosis/Procedures: MVR, CABG x1, MAZE. leftatrial appendage clip ), Pacemaker implant (02/11)
Condition: Good
Diet: Low Cholesterol, Low Sodium and Diabetic, Carb Controlled
Additional Diets: please avoid High potassium diet (bananas, spinach)
Activity: No strenuous activity
Driving Restrictions: Not until seen by your Dr
Bathing Restrictions: OK to Shower
Blood Work: Repeat BMP on tuesday
Other Services: Cardiac Rehab
Specialty Instructions: Weigh Daily- Call MD for wt gain/loss 3 lbs overnight/5 lbs in 1 week
Activity Restrictions/Additional Instructions:
Please call to make appointments for Phase II Cardiac Rehab:
Abebe Ortega
[address] [facility]
[place], [place]
[phone]
ACTIVITY:
-No strenuous activity: no heavy lifting, pushing, pulling anything over 15 pounds for one month
-continue to use stairs as tolerated
DRIVING RESTRICTIONS:
-No driving for one month or until approved by your surgeon
WOUND CARE:
-Shower daily. Use soap & water.
-No lotions, creams or powders on incision area.
DIET:
-continue a low fat/low cholesterol diet.
-IF you are diabetic, continue carb controlled diet.
CARDIAC REHAB:
-Please make appointment to start in 5-6 weeks with your local hospital program. (See Cardiac Rehabilitation Discharge Booklet).
SPECIALTY INSTRUCTIONS:
-Weigh yourself daily. Call your physician for any weight gain/loss of 3 lbs overnight or 5 lbs in one week.
-REPORT any clicking noise or uneven appearance of your sternum to your surgeon immediately.
-If you smoke, you are instructed to quit. The [place] smoking hotline phone number is [phone]
Stand Alone Forms: DC Inst - Implanted Device
Referrals:
[facility] Visiting Nurse [Outside]
Referral Note: FAX [phone]
Elsy Pena ENVIRONMENTAL SERVICES ATTENDANT [Family Provider] - in four to six weeks
Referral Note: Please make an appointment in four to six weeks.
Kacey Gould MD [Active, Cardiology] - 02/18/25 1:20 pm
Referral Note: Post device incision check appointment
El Rowell MD [Active, Cardiology] - 03/28/25 12:20 pm
Long Hernández MD [Active, Cardiac Surgery] - 03/11/25 1:30 pm
Additional Discharge Medication Instructions: please take your antibiotic twice a day for 7 days for your UTI.
Prescriptions:
New
acetaminophen 325 mg Tablet
650 mg PO Q4HPRN PRN (Reason: mild pain,headache,temp >101F ) Qty: 0 0RF
amiodarone 200 mg tablet
200 mg PO DAILY Qty: 30 1RF
atorvastatin 80 mg Tablet
80 mg PO HS Qty: 30 1RF
digoxin 125 mcg (0.125 mg) Tablet
125 mcg PO NOON Qty: 30 1RF
oxycodone 5 mg Tablet
5 mg PO Q4HPRN PRN (Reason: severe pain) Qty: 10 0RF
metoprolol succinate [Toprol XL] 50 mg tablet extended release 24 hr
50 mg PO DAILY Qty: 30 1RF
cyclobenzaprine 10 mg Tablet
5 mg PO Q8HPRN PRN (Reason: muscle spasm) Qty: 10 0RF
pantoprazole 40 mg Tablet,Delayed Release (Dr/Ec)
40 mg PO DAILY Qty: 30 1RF
Eliquis 5 mg Tablet
5 mg PO BID Qty: 60 1RF
dapagliflozin propanediol 10 mg Tablet
10 mg PO DAILY Qty: 30 1RF
amoxicillin-pot clavulanate 875-125 mg Tablet
1 tab PO Q12 Qty: 14 0RF
Continued
citalopram [Celexa] 40 mg Tablet
40 mg PO DAILY
aspirin 81 mg Tablet,Delayed Release (Dr/Ec)
81 mg PO DAILY
levothyroxine 88 mcg Tablet
88 mcg PO DAILY
gabapentin 100 mg Capsule
100 mg PO DAILY
albuterol sulfate 90 mcg/actuation Hfa Aerosol Inhaler
1 - 2 puff INHALATION Q6H PRN (Reason: asthma)
bupropion HCl 150 mg Tablet Extended Release 24 Hr
150 mg PO HS
metformin 500 mg Tablet Extended Release 24hr
1,000 mg PO BID
insulin glargine [Basaglar KwikPen U-100 Insulin] 100 unit/mL (3 mL) Insulin Pen
20 unit SC HS
Trulicity 0.75 mg/0.5 mL Pen Injector
0.75 mg SC QWEEK
Rx Instructions:
QMONDAY
Trelegy Ellipta 100-62.5-25 mcg Blister With Device
1 inh INHALATION DAILY
ferrous sulfate [Iron (ferrous sulfate)] 325 mg (65 mg iron) Tablet
325 mg PO Q48H
cholecalciferol (vitamin D3) [Vitamin D3] 125 mcg (5,000 unit) Tablet
125 mcg PO DAILY
One-A-Day Energy 9 mg iron-400 mcg-200 mg Tablet
1 tab PO DAILY
mecobalamin (vitamin B12) 1,000 mcg Tablet,Chewable
3,000 mcg PO DAILY
Discontinued
furosemide 40 mg Tablet
40 mg PO DAILY
atorvastatin 40 mg Tablet
40 mg PO HS
clopidogrel 75 mg Tablet
75 mg PO DAILY
Patient Comments:
Patient unable to provide a definite answer, initially stated 2 days prior and then 4, then 5 days, Tag test pending
lisinopril 5 mg Tablet
5 mg PO HS
metoprolol succinate 25 mg Tablet Extended Release 24 Hr
25 mg PO HS
Discharge Orders:
Discharge Patient (As Directed); Ordered 02/16/25
Ordered By: Nava Saab
Care Plan Goals
Care Plan Goals:
Problem: Readiness for enhanced knowledge related to diagnosis and treatment plan
Goal: Understand your diagnosis and treatment plan needs, including medications if applicable.
Instructions: Know your diagnosis, underlying causes and treatment plan options, including medications if applicable. Consult with your health care team to learn about your diagnosis and treatment plan, including medications if applicable.
Discharge Date and Time
Print Language: NORWEGIAN
--- NOTE | 2025-02-16 15:11 | W.PN.UPDATE ---
Update Note
Progress Note Update
patient was noted to have a UTI that grew E.Coli, d/t recent mitral valve intervention she was started on antibiotics x1 week.
--- NOTE | 2025-02-16 16:56 | PTCARENOTE ---
Patient showered before discharge. IV and telemetry removed. Discharge instructions reviewed. Patient and verbalized understanding. Discharged to home on 1 liter NC. Patient escorted and assisted into her husbands car
== END 2025-02-16 17:03 | disposition home health service (06) | DRG 219 ==
LOC: IVU 04:36
PROVIDERS: Anesthesiology; Clinical Nurse Specialist Acute Care; Internal Medicine Cardiovascular Disease; Nurse Practitioner; Physician Assistant; Physician Assistant Medical; ADMITTING PHYSICIAN Thoracic Surgery (Cardiothoracic Vascular Surgery); CONSULT PHYSICIAN Internal Medicine Critical Care Medicine; FAMILY PHYSICIAN Nurse Practitioner Family
PROC: 02L70CK Occlusion of Left Atrial Appendage with Extraluminal Device, Open Approach (ICD-10-PCS; 2025-02-07)
PROC: 5A1221Z Performance of Cardiac Output, Continuous (ICD-10-PCS; 2025-02-07)
PROC: B24BZZ4 Ultrasonography of Heart with Aorta, Transesophageal (ICD-10-PCS; 2025-02-07)
PROC: 02580ZZ Destruction of Conduction Mechanism, Open Approach (ICD-10-PCS; 2025-02-07)
PROC: 02RG08Z Replacement of Mitral Valve with Zooplastic Tissue, Open Approach (ICD-10-PCS; 2025-02-07)
PROC: 02100Z9 Bypass Coronary Artery, One Artery from Left Internal Mammary, Open Approach (ICD-10-PCS; 2025-02-07)
PROC: 02UA08Z Supplement Heart with Zooplastic Tissue, Open Approach (ICD-10-PCS; 2025-02-07)
PROC: 30233N1 Transfusion of Nonautologous Red Blood Cells into Peripheral Vein, Percutaneous Approach (ICD-10-PCS; 2025-02-08)
PROC: 02HK3JZ Insertion of Pacemaker Lead into Right Ventricle, Percutaneous Approach (ICD-10-PCS; 2025-02-11)
PROC: 02H63JZ Insertion of Pacemaker Lead into Right Atrium, Percutaneous Approach (ICD-10-PCS; 2025-02-11)
PROC: 0JH606Z Insertion of Pacemaker, Dual Chamber into Chest Subcutaneous Tissue and Fascia, Open Approach (ICD-10-PCS; 2025-02-11)
DX: I34.2 Nonrheumatic mitral (valve) stenosis (principal); J95.1 Acute pulmonary insufficiency following thoracic surgery; D62 Acute posthemorrhagic anemia; I50.32 Chronic diastolic (congestive) heart failure; N39.0 Urinary tract infection, site not specified; I47.10 Supraventricular tachycardia, unspecified; I44.2 Atrioventricular block, complete; J98.11 Atelectasis; N17.9 Acute kidney failure, unspecified; I34.81 Nonrheumatic mitral (valve) annulus calcification; I25.10 Atherosclerotic heart disease of native coronary artery without angina pectoris; E03.9 Hypothyroidism, unspecified; E11.42 Type 2 diabetes mellitus with diabetic polyneuropathy; E66.9 Obesity, unspecified; E87.5 Hyperkalemia; D69.59 Other secondary thrombocytopenia; E86.1 Hypovolemia; E87.70 Fluid overload, unspecified; Y83.2 Surgical operation with anastomosis, bypass or graft as the cause of abnormal reaction of the patient, or of later complication, without mention of misadventure at the time of the procedure; I48.0 Paroxysmal atrial fibrillation; I11.0 Hypertensive heart disease with heart failure; R00.1 Bradycardia, unspecified; I27.20 Pulmonary hypertension, unspecified; I36.1 Nonrheumatic tricuspid (valve) insufficiency; E78.00 Pure hypercholesterolemia, unspecified; F32.A Depression, unspecified; J45.909 Unspecified asthma, uncomplicated; B96.20 Unspecified Escherichia coli [E. coli] as the cause of diseases classified elsewhere; F41.9 Anxiety disorder, unspecified; Z68.34 Body mass index [BMI] 34.0-34.9, adult; Z79.02 Long term (current) use of antithrombotics/antiplatelets; Z79.82 Long term (current) use of aspirin; Z79.84 Long term (current) use of oral hypoglycemic drugs; Z79.899 Other long term (current) drug therapy; Z82.49 Family history of ischemic heart disease and other diseases of the circulatory system
CPT/HCPCS: 88305; 88311; 93308; 33208; 36415; 71045; 71046; 80048; 80053; 80162; 81003; 81015; 82248; 82330; 82565; 82805; 82810; 82947; 82962; 83036; 83735; 84132; 84302; 84520; 85014; 85018; 85025; 85027; 85049; 85610; 85730; 86803; 86850; 86900; 86901; 86920; 87070; 87077; 87086; 87186; 93005; 93312; 93320; 93321; 93325; 93880; 94002; 94010; 94640; C1769; C1785; C1887; C1892; C1898; J1160; J2916; P9016; P9045; P9047